=== PATIENT | female | born 1985 | race Caucasian/White ===

== ENCOUNTER 2016-09-23 13:02 | Emergency (ER) | payer SELFPAY ==
[2016-09-23] MEDS ORDERED: Ketorolac 30 MG/ML SDV IVPUSH ONE (13:58)
[2016-09-23] MEDS ORDERED: Sodium Chloride 0.9% 1,000 ML IV ONE (13:58)
[2016-09-23] MEDS ORDERED: Sodium Chloride 0.9% 10 ML Syringe FLUSH PRN (13:58)
--- NOTE | 2016-09-23 15:22 | EDM.PDOC ---
ED HPI GENERAL MEDICAL PROBLEM - General Chief Complaint: Back Pain or Injury Stated Complaint: BACK PAIN Time Seen by Provider: 09/23/16 13:40 Source of Information: Reports: Patient History Limitations: Reports: No Limitations - History of Present Illness INITIAL COMMENTS - FREE TEXT/NARRATIVE: 31-year-old female presents for evaluation and treatment of low back pain. Patient reports that the back pain has been present for the last 2 weeks. Feels that it is worse on her right side versus her left. reports that she fell twice yesterday but is not noticing worsening in her back pain. Patient feels that she is dehydrated. She states that she normally does not eat much. She is alcoholic. She states that she does not drink daily but she did drink yesterday. Did drink 8 shots of vodka yesterday, no alcohol today. Reports pain in her low to mid back that radiates into her legs. She denies any numbness or tingling in her legs but states she has chronic numbness in her fingertips has been last last few months. She also reports that her urine has a foul odor and color this is been present for the last 2 weeks. She reports associated symptoms of nausea and vomiting this morning. No fevers or hematuria. Patient denies any chance of . Duration: Week(s): (2) Location: Reports: Back Lower Back Pain Score (Numeric/FACES): 6 - Related Data Allergies Allergy/AdvReac Type Severity Reaction Status Date / Time propranolol Allergy Swelling Verified 04/26/16 20:52 Sulfa (Sulfonamide Allergy Rash Verified 04/26/16 20:52 Antibiotics) Home Meds: Home Meds Levothyroxine [Synthroid] 175 mcg PO ACBREAKFAST 11/20/15 [History] traZODone 100 mg PO DAILY 04/26/16 [History] Nitrofurantoin [place]/Macrocryst [Macrobid] 100 mg PO BEDTIME #14 cap 09/23/16 [Rx ] Past Medical History Gastrointestinal History: Reports: Chronic Diarrhea Other Gastrointestinal History: c/o yellow liquid stools for past 2-3 months. 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: Neurological History: Reports: Headaches, Chronic Psychiatric History: Reports: Addiction, Anxiety Endocrine/Metabolic History: Reports: Hyperthyroidism Other Endocrine/Metabolic History: had thryoid removed Hematologic History: Reports: Anemia - Infectious Disease History Infectious Disease History: Reports: Chicken Pox - Past Surgical History Endocrine Surgical History: Reports: Thyroidectomy Social & Family History - Family History Family Medical History: Noncontributory - Tobacco Use Smoking Status *Q: Current Every Day Smoker Years of Tobacco use: 10 Packs/Tins Daily: 1 Used Tobacco, but Quit: No Second Hand Smoke Exposure: No - Caffeine Use Caffeine Use: Reports: None - Alcohol Use Days Per Week of Alcohol Use: 7 Number of Drinks Per Day: 10 Total Drinks Per Week: 70 - Recreational Drug Use Recreational Drug Use: No Drug Use in Last 12 Months: Yes Recreational Drug Type: Reports: Ativan Recreational Drug Use Frequency: Daily - Living Situation & Occupation Living situation: Reports: Single Occupation: Unemployed ED ROS GENERAL - Review of Systems Review Of Systems: See Below Constitutional: Denies: Fever GI/Abdominal: Reports: Nausea, Vomiting : Reports: Other (reports foul urine odor and dark urine color). Denies: Dysuria, Hematuria Musculoskeletal: Reports: Back Pain ED EXAM,LOWER BACK PAIN/INJURY - Physical Exam Exam: See Below Exam Limited By: No Limitations General Appearance: Alert, WD/WN, No Apparent Distress Respiratory/Chest: No Respiratory Distress, Lungs Clear, Normal Breath Sounds Cardiovascular: Normal Peripheral Pulses, Regular Rate, Rhythm, No Murmur GI/Abdominal: Normal Bowel Sounds, Soft, Non-Tender Back Exam: Normal Inspection, CVA Tenderness (R). No: Vertebral Tenderness Neurological: Alert, Normal Mood/Affect, Normal Gait Psychiatric: Normal Affect, Normal Mood Skin Exam: Warm, Dry, Normal Color Course - Vital Signs Last Recorded V/S: Last Vital Signs Temp 36.6 C 09/23/16 13:13 Pulse 89 09/23/16 15:55 Resp 16 09/23/16 15:55 BP 124/78 09/23/16 15:55 Pulse Ox 98 09/23/16 15:55 - Orders/Labs/Meds Orders: Active Orders 24 hr Category Date Time Status Peripheral IV Care [RC] . DIRECTED Care 09/23/16 13:58 Active CULTURE URINE [RM] Stat Lab 09/23/16 14:30 Received Peripheral IV Insertion Adult [OM.PC] Routine Oth 09/23/16 13:58 Ordered Labs: Laboratory Tests 09/23/16 09/23/16 09/23/16 Range/Units 14:30 14:30 14:30 WBC 5.45 (3.98-10.04) K/mm3 RBC 4.56 (3.98-5.22) M/mm3 Hgb 13.1 (11.2-15.7) gm/L Hct 39.9 (34.1-44.9) % MCV 87.5 (79.4-94.8) fl MCH 28.7 (25.6-32.2) pg MCHC 32.8 (32.2-35.5) g/dl RDW Std Deviation 47.6 H (36.4-46.3) fL Plt Count 208 (182-369) K/mm3 MPV 9.2 L (9.4-12.3) fl Neutrophils % (Manual) 60 (40-60) % Band Neutrophils % 1 (0-10) % Lymphocytes % (Manual) 32 (20-40) % Atypical Lymphs % 0 % Monocytes % (Manual) 5 (2-10) % Eosinophils % (Manual) 1 (0.7-5.8) % Basophils % (Manual) 1 (0.1-1.2) Platelet Estimate Adequate RBC Morph Comment Normal Sodium 136 (136-145) mEq/L Potassium 4.2 (3.5-5.1) mEq/L Chloride 101 (98-107) mEq/L Carbon Dioxide 26 (21-32) mEq/L Anion Gap 13.2 (5-15) BUN 9 (7-18) mg/dL Creatinine 1.0 (0.55-1.02) mg/dL Est Cr Clr Drug Dosing 80.72 mL/min Estimated GFR (MDRD) > 60 (>60) mL/min BUN/Creatinine Ratio 9.0 L (14-18) Glucose 72 L (74-106) mg/dL Calcium 8.4 L (8.5-10.1) mg/dL Total Bilirubin 0.4 (0.2-1.0) mg/dL AST 24 (15-37) U/L ALT 24 (14-59) U/L Alkaline Phosphatase 113 (46-116) U/L C-Reactive Protein < 0.2 (<1.0) mg/dL Total Protein 8.4 H (6.4-8.2) g/dl Albumin 4.1 (3.4-5.0) g/dl Globulin 4.3 gm/dL Albumin/Globulin Ratio 1.0 (1-2) Urine Color Yellow (Yellow) Urine Appearance Clear (Clear) Urine pH 7.5 (5.0-8.0) Ur Specific [place] 1.020 (1.005-1.030) Urine Protein Trace H (Negative) Urine Glucose (UA) Negative (Negative) Urine Ketones Negative (Negative) Urine Occult Blood Negative (Negative) Urine Nitrite Negative (Negative) Urine Bilirubin Negative (Negative) Urine Urobilinogen 0.2 (0.2-1.0) Ur Leukocyte Esterase Negative (Negative) Urine RBC 0-5 (0-5) /hpf Urine WBC 0-5 (0-5) /hpf Ur Epithelial Cells 5-10 H (0-5) /hpf Urine Bacteria Rare (FEW) /hpf Urine Mucus Few (FEW) /hpf Ethyl Alcohol (0.00) gm% 09/23/16 Range/Units 14:30 WBC (3.98-10.04) K/mm3 RBC (3.98-5.22) M/mm3 Hgb (11.2-15.7) gm/L Hct (34.1-44.9) % MCV (79.4-94.8) fl MCH (25.6-32.2) pg MCHC (32.2-35.5) g/dl RDW Std Deviation (36.4-46.3) fL Plt Count (182-369) K/mm3 MPV (9.4-12.3) fl Neutrophils % (Manual) (40-60) % Band Neutrophils % (0-10) % Lymphocytes % (Manual) (20-40) % Atypical Lymphs % % Monocytes % (Manual) (2-10) % Eosinophils % (Manual) (0.7-5.8) % Basophils % (Manual) (0.1-1.2) Platelet Estimate RBC Morph Comment Sodium (136-145) mEq/L Potassium (3.5-5.1) mEq/L Chloride (98-107) mEq/L Carbon Dioxide (21-32) mEq/L Anion Gap (5-15) BUN (7-18) mg/dL Creatinine (0.55-1.02) mg/dL Est Cr Clr Drug Dosing mL/min Estimated GFR (MDRD) (>60) mL/min BUN/Creatinine Ratio (14-18) Glucose (74-106) mg/dL Calcium (8.5-10.1) mg/dL Total Bilirubin (0.2-1.0) mg/dL AST (15-37) U/L ALT (14-59) U/L Alkaline Phosphatase (46-116) U/L C-Reactive Protein (<1.0) mg/dL Total Protein (6.4-8.2) g/dl Albumin (3.4-5.0) g/dl Globulin gm/dL Albumin/Globulin Ratio (1-2) Urine Color (Yellow) Urine Appearance (Clear) Urine pH (5.0-8.0) Ur Specific [place] (1.005-1.030) Urine Protein (Negative) Urine Glucose (UA) (Negative) Urine Ketones (Negative) Urine Occult Blood (Negative) Urine Nitrite (Negative) Urine Bilirubin (Negative) Urine Urobilinogen (0.2-1.0) Ur Leukocyte Esterase (Negative) Urine RBC (0-5) /hpf Urine WBC (0-5) /hpf Ur Epithelial Cells (0-5) /hpf Urine Bacteria (FEW) /hpf Urine Mucus (FEW) /hpf Ethyl Alcohol 0.05 (0.00) gm% Meds: Medications Discontinued Medications Generic Name Dose Route Start Last Admin Trade Name Freq PRN Reason Stop Dose Admin Sodium Chloride 1,000 mls @ 999 mls/hr 09/23/16 13:58 09/23/16 14:24 Normal Saline IV 09/23/16 14:58 999 mls/hr ONETIME ONE Administration Ketorolac Tromethamine 30 mg 09/23/16 13:58 09/23/16 14:25 Toradol IVPUSH 09/23/16 13:59 30 mg ONETIME ONE Administration Sodium Chloride 10 ml 09/23/16 13:58 09/23/16 14:26 Saline Flush FLUSH 10 ml ASDIRECTED PRN Administration Keep Vein Open - Re-Assessments/Exams Free Text/Narrative Re-Assessment/Exam: 09/23/16 15:30 Labs have returned. White blood cell count 5.45 with 1% bands, hemoglobin 13.1 and platelets are 208 Sodium 136, potassium 4.2 and chloride 101. Anion gap 13.2. glucose is 72 CRP is normal less than 0.2. Alcohol is 0.05. UA has trace protein and rare bacteria seen on microscopy. While the patient's UA is not overly impressive, I was made aware the patient has been drinking alcohol recently. She is symptomatic for urinary tract infection. I will treat her as such. Urine was sent for culture. Discharge instructions as documented. Departure - Departure Time of Disposition: 15:37 Disposition: Home, Self-Care 01 Condition: Fair Clinical Impression: Urinary tract infection - Discharge Information Prescriptions: Nitrofurantoin [place]/Macrocryst [Macrobid] 100 mg PO BEDTIME #14 cap Instructions: Urinary Tract Infection, Adult, [id number] Referrals: Imani Nagel DO [Primary Care Provider] - Forms: ED Department Discharge Additional Instructions: Take the Macrobid one tab twice a day for 7 days as prescribed. Take [id number] Tylenol or Motrin as needed for pain and symptom relief. make sure you are drinking plenty of fluids. Avoid alcohol as you will have a longer healthier life if you avoid alcohol. Continue with your current treatment plan. Follow-up with your primary care provider the end of this week or early next week for a recheck. Please return to the ER if your symptoms change or worsen. - My Orders Last 24 Hours: My Active Orders 09/23/16 13:58 Peripheral IV Care [RC] . DIRECTED Peripheral IV Insertion Adult [OM.PC] Routine 09/23/16 14:30 CULTURE URINE [RM] Stat - Assessment/Plan Last 24 Hours: My Active Orders 09/23/16 13:58 Peripheral IV Care [RC] . DIRECTED Peripheral IV Insertion Adult [OM.PC] Routine 09/23/16 14:30 CULTURE URINE [RM] Stat
[2016-09-23 15:57] VITALS: BP 124/78
== END 2016-09-23 15:57 | disposition home or self-care (01) ==
LOC: JD.ED 13:02
DX: N39.0 Urinary tract infection, site not specified (principal); F41.9 Anxiety disorder, unspecified; E03.9 Hypothyroidism, unspecified; F17.210 Nicotine dependence, cigarettes, uncomplicated; Z88.2 Allergy status to sulfonamides; Z79.899 Other long term (current) drug therapy; Z87.440 Personal history of urinary (tract) infections
CPT/HCPCS: 36415; 80053; 81001; 85025; 86140; 87086; 96361; 96374; 99283; G0480; J1885; J7040; J7050; 99284

== ENCOUNTER 2016-10-09 16:47 | Emergency (ER) | payer SELFPAY ==
[2016-10-09 17:02] VITALS: BP 121/83
--- NOTE | 2016-10-09 19:50 | EDM.PDOC ---
ED HPI GENERAL MEDICAL PROBLEM - General Chief Complaint: Behavioral/Psych Stated Complaint: Medical clearance Time Seen by Provider: 10/09/16 17:15 Source of Information: Reports: Patient, RN Notes Reviewed History Limitations: Reports: No Limitations - History of Present Illness INITIAL COMMENTS - FREE TEXT/NARRATIVE: 31 year old female presents to the ED today for medical clearance for [facility] bed. The patient is an alcoholic and is seeking help for her drinking. She initially spoke to Perez Mendoza who referred her to [facility]. The patient admits to drinking 6 shots of tequila today. She admits to drink approximately two times per week. She denies any withdrawal symptoms. She used to drink daily and has gone through withdrawals. She says for the past 6 months she's been drinking less with no withdrawal symptoms. She says that her is very controlling which is contributing to her need to drink. She denies drug use. She denies suicidal or homicidal ideation. - Related Data Allergies Allergy/AdvReac Type Severity Reaction Status Date / Time propranolol Allergy Swelling Verified 04/26/16 20:52 Sulfa (Sulfonamide Allergy Rash Verified 04/26/16 20:52 Antibiotics) Home Meds: Home Meds Levothyroxine [Synthroid] 175 mcg PO ACBREAKFAST 11/20/15 [History] traZODone 100 mg PO DAILY 04/26/16 [History] Antibuse 500 mg PO DAILY 10/09/16 [History] Past Medical History Gastrointestinal History: Reports: Chronic Diarrhea Other Gastrointestinal History: c/o yellow liquid stools for past 2-3 months. 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: Neurological History: Reports: Headaches, Chronic Psychiatric History: Reports: Addiction, Anxiety Endocrine/Metabolic History: Reports: Hyperthyroidism Other Endocrine/Metabolic History: had thryoid removed Hematologic History: Reports: Anemia - Infectious Disease History Infectious Disease History: Reports: Chicken Pox - Past Surgical History Endocrine Surgical History: Reports: Thyroidectomy Social & Family History - Family History Family Medical History: Noncontributory - Tobacco Use Smoking Status *Q: Current Every Day Smoker Years of Tobacco use: 7 Packs/Tins Daily: 1 Used Tobacco, but Quit: No Second Hand Smoke Exposure: No - Caffeine Use Caffeine Use: Reports: Coffee, Energy Drinks - Alcohol Use Days Per Week of Alcohol Use: 7 Number of Drinks Per Day: 10 Total Drinks Per Week: 70 - Recreational Drug Use Recreational Drug Use: No Drug Use in Last 12 Months: Yes Recreational Drug Type: Reports: Ativan Recreational Drug Use Frequency: Daily - Living Situation & Occupation Living situation: Reports: Single Occupation: Unemployed ED ROS GENERAL - Review of Systems Review Of Systems: See Below Constitutional: Reports: No Symptoms. Denies: Fever, Chills, Diaphoresis Respiratory: Reports: No Symptoms. Denies: Shortness of Breath Cardiovascular: Reports: No Symptoms. Denies: Chest Pain GI/Abdominal: Reports: No Symptoms. Denies: Abdominal Pain, Nausea, Vomiting Neurological: Reports: No Symptoms. Denies: Dizziness, Headache, Tremors ED EXAM, BEHAVIORAL HEALTH - Physical Exam Exam: See Below Exam Limited By: No Limitations General Appearance: Alert, WD/WN, No Apparent Distress Eye Exam: Bilateral Eye: EOMI, PERRL Respiratory/Chest: No Respiratory Distress, Lungs Clear, Normal Breath Sounds Cardiovascular: Regular Rate, Rhythm GI/Abdominal: Normal Bowel Sounds, Soft, Non-Tender Neurological: Alert, Normal Mood/Affect, Normal Cognition, Normal Gait, No Motor /Sensory Deficits, Oriented x 3 Psychiatric: Alert, Normal Affect, Normal Cognition, Normal Mood, Oriented, Tearful Skin Exam: Warm, Dry, Intact COURSE, BEHAVIORAL HEALTH COMP - Course Vital Signs: Last Vital Signs Temp 97.6 F 10/09/16 17:01 Pulse 92 10/09/16 17:01 Resp 20 10/09/16 17:01 BP 121/83 10/09/16 17:01 Pulse Ox 97 10/09/16 17:01 Orders, Labs, Meds: Laboratory Tests 10/09/16 10/09/16 10/09/16 Range/Units 17:53 17:53 18:00 WBC 6.43 (3.98-10.04) K/mm3 RBC 4.39 (3.98-5.22) M/mm3 Hgb 12.7 (11.2-15.7) gm/L Hct 38.3 (34.1-44.9) % MCV 87.2 (79.4-94.8) fl MCH 28.9 (25.6-32.2) pg MCHC 33.2 (32.2-35.5) g/dl RDW Std Deviation 48.3 H (36.4-46.3) fL Plt Count 276 (182-369) K/mm3 MPV 8.9 L (9.4-12.3) fl Neut % (Auto) 54.8 (34.0-71.1) % Lymph % (Auto) 35.0 (19.3-51.7) % [place] % (Auto) 6.8 (4.7-12.5) % Eos % (Auto) 2.6 (0.7-5.8) Baso % (Auto) 0.6 (0.1-1.2) % Neut # (Auto) 3.52 (1.56-6.13) K/mm3 Lymph # (Auto) 2.25 (1.18-3.74) K/mm3 [place] # (Auto) 0.44 H (0.24-0.36) K/mm3 Eos # (Auto) 0.17 (0.04-0.36) K/mm3 Baso # (Auto) 0.04 (0.01-0.08) K/mm3 Sodium (136-145) mEq/L Potassium (3.5-5.1) mEq/L Chloride (98-107) mEq/L Carbon Dioxide (21-32) mEq/L Anion Gap (5-15) BUN (7-18) mg/dL Creatinine (0.55-1.02) mg/dL Est Cr Clr Drug Dosing mL/min Estimated GFR (MDRD) (>60) mL/min BUN/Creatinine Ratio (14-18) Glucose (74-106) mg/dL Calcium (8.5-10.1) mg/dL Total Bilirubin (0.2-1.0) mg/dL AST (15-37) U/L ALT (14-59) U/L Alkaline Phosphatase (46-116) U/L Total Protein (6.4-8.2) g/dl Albumin (3.4-5.0) g/dl Globulin gm/dL Albumin/Globulin Ratio (1-2) TSH 3rd Generation (0.358-3.74) uIU/mL Urine HCG, Qual Negative (NEGATIVE) Urine Opiates Screen Negative (NEGATIVE) Ur Buprenorphine Scrn Negative (NEGATIVE) Ur Oxycodone Screen Negative (NEGATIVE) Urine Methadone Screen Negative (NEGATIVE) Ur Propoxyphene Screen Negative (NEGATIVE) Ur Barbiturates Screen Negative (NEGATIVE) Ur Tricyclics Screen Negative (NEGATIVE) Ur Phencyclidine Scrn Negative (NEGATIVE) Ur Amphetamine Screen Negative (NEGATIVE) U Methamphetamines Scrn Negative (NEGATIVE) U Benzodiazepines Scrn Negative (NEGATIVE) U Cocaine Metab Screen Negative (NEGATIVE) U Marijuana (THC) Screen Negative (NEGATIVE) Ethyl Alcohol (0.00) gm% 10/09/16 Range/Units 18:00 WBC (3.98-10.04) K/mm3 RBC (3.98-5.22) M/mm3 Hgb (11.2-15.7) gm/L Hct (34.1-44.9) % MCV (79.4-94.8) fl MCH (25.6-32.2) pg MCHC (32.2-35.5) g/dl RDW Std Deviation (36.4-46.3) fL Plt Count (182-369) K/mm3 MPV (9.4-12.3) fl Neut % (Auto) (34.0-71.1) % Lymph % (Auto) (19.3-51.7) % [place] % (Auto) (4.7-12.5) % Eos % (Auto) (0.7-5.8) Baso % (Auto) (0.1-1.2) % Neut # (Auto) (1.56-6.13) K/mm3 Lymph # (Auto) (1.18-3.74) K/mm3 [place] # (Auto) (0.24-0.36) K/mm3 Eos # (Auto) (0.04-0.36) K/mm3 Baso # (Auto) (0.01-0.08) K/mm3 Sodium 142 (136-145) mEq/L Potassium 4.2 (3.5-5.1) mEq/L Chloride 107 (98-107) mEq/L Carbon Dioxide 27 (21-32) mEq/L Anion Gap 12.2 (5-15) BUN 10 (7-18) mg/dL Creatinine 1.1 H (0.55-1.02) mg/dL Est Cr Clr Drug Dosing 73.38 mL/min Estimated GFR (MDRD) 59 (>60) mL/min BUN/Creatinine Ratio 9.1 L (14-18) Glucose 105 (74-106) mg/dL Calcium 8.5 (8.5-10.1) mg/dL Total Bilirubin 0.2 (0.2-1.0) mg/dL AST 21 (15-37) U/L ALT 20 (14-59) U/L Alkaline Phosphatase 106 (46-116) U/L Total Protein 8.2 (6.4-8.2) g/dl Albumin 4.0 (3.4-5.0) g/dl Globulin 4.2 gm/dL Albumin/Globulin Ratio 1.0 (1-2) TSH 3rd Generation 0.685 (0.358-3.74) uIU/mL Urine HCG, Qual (NEGATIVE) Urine Opiates Screen (NEGATIVE) Ur Buprenorphine Scrn (NEGATIVE) Ur Oxycodone Screen (NEGATIVE) Urine Methadone Screen (NEGATIVE) Ur Propoxyphene Screen (NEGATIVE) Ur Barbiturates Screen (NEGATIVE) Ur Tricyclics Screen (NEGATIVE) Ur Phencyclidine Scrn (NEGATIVE) Ur Amphetamine Screen (NEGATIVE) U Methamphetamines Scrn (NEGATIVE) U Benzodiazepines Scrn (NEGATIVE) U Cocaine Metab Screen (NEGATIVE) U Marijuana (THC) Screen (NEGATIVE) Ethyl Alcohol 0.24 (0.00) gm% Re-Assessment/Re-Exam: Spoke to Perez Mendoza. She knows the patient well and has no concerns for acute alcohol withdrawal. She feels the patient is motivated to quit drinking. Perez spoke to [facility] earlier today. The patient is medically cleared for [facility]. Spoke to area coordinator and nurse at [facility]. They have accepted care of the patient. They will come get here. Departure - Departure Time of Disposition: 19:50 Disposition: Home, Self-Care 01 Condition: Good Clinical Impression: Alcohol abuse - Discharge Information Instructions: Alcohol Use Disorder Referrals: Imani Nagel DO [Primary Care Provider] - Forms: ED Department Discharge Additional Instructions: Medications as prescribed. Return to ER with any withdrawal symptoms
== END 2016-10-09 20:00 | disposition home or self-care (01) ==
LOC: JD.ED 16:47
DX: F10.10 Alcohol abuse, uncomplicated (principal); F41.9 Anxiety disorder, unspecified; E05.90 Thyrotoxicosis, unspecified without thyrotoxic crisis or storm; Z88.2 Allergy status to sulfonamides; Z88.8 Allergy status to other drugs, medicaments and biological substances; Z79.899 Other long term (current) drug therapy; Z87.440 Personal history of urinary (tract) infections; Z98.890 Other specified postprocedural states; Y90.8 Blood alcohol level of 240 mg/100 ml or more
CPT/HCPCS: 36415; 80053; 80306; 81025; 84443; 85025; 99283; G0480

== ENCOUNTER 2016-10-21 07:36 | Emergency (ER) | payer SELFPAY ==
[2016-10-21 07:46] VITALS: BP 107/85
[2016-10-21] MEDS ORDERED: methylPREDNISolone Sodium Succinate 125 MG/2 ML SDV IM ONE (08:00)
[2016-10-21] MEDS ORDERED: diphenhydrAMINE 50 MG Cap PO ONE (08:01)
[2016-10-21] MEDS ORDERED: Famotidine 20 MG Tab PO ONE (08:01)
--- NOTE | 2016-10-21 08:37 | EDM.PDOC ---
ED HPI GENERAL MEDICAL PROBLEM - General Chief Complaint: Allergic Reaction Stated Complaint: POSS ALLERGIC REACTION/HIVES/SWELLING Time Seen by Provider: 10/21/16 07:56 Source of Information: Reports: Patient History Limitations: Reports: No Limitations - History of Present Illness INITIAL COMMENTS - FREE TEXT/NARRATIVE: The patient presents with hives. She noticed some on her buttocks this weekend. She did eat some crab and [place]. She has only reacted to propranolol like this before. She has no SOB and she has no trouble breathing. She now has hives on her arms and legs. Onset: Gradual Duration: Day(s): Location: Reports: Upper Extremity, Left, Upper Extremity, Right, Lower Extremity, Left, Lower Extremity, Right Quality: Reports: Burning Severity: Moderate Improves with: Reports: None Worsens with: Reports: None Context: Reports: Activity (She was in [place] and she had some crab this weekned) Associated Symptoms: Reports: No Other Symptoms - Related Data Allergies Allergy/AdvReac Type Severity Reaction Status Date / Time propranolol Allergy Swelling Verified 10/21/16 07:46 Sulfa (Sulfonamide Allergy Rash Verified 10/21/16 07:46 Antibiotics) Home Meds: Home Meds Levothyroxine [Synthroid] 175 mcg PO ACBREAKFAST 11/20/15 [History] traZODone 100 mg PO DAILY 04/26/16 [History] Antibuse 500 mg PO DAILY 10/09/16 [History] Prednisone [IJD: predniSONE] 40 mg PO WITHBREAKFAST #10 tab 10/21/16 [Rx] Past Medical History Gastrointestinal History: Reports: Chronic Diarrhea Other Gastrointestinal History: c/o yellow liquid stools for past 2-3 months. 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: Neurological History: Reports: Headaches, Chronic Psychiatric History: Reports: Addiction, Anxiety Endocrine/Metabolic History: Reports: Hyperthyroidism Other Endocrine/Metabolic History: had thryoid removed Hematologic History: Reports: Anemia - Infectious Disease History Infectious Disease History: Reports: Chicken Pox - Past Surgical History Female Surgical History: Reports: Oophorectomy Other Female Surgeries/Procedures: right ovary removal Endocrine Surgical History: Reports: Thyroidectomy Social & Family History - Family History Family Medical History: Noncontributory - Tobacco Use Smoking Status *Q: Current Every Day Smoker Years of Tobacco use: 10 Packs/Tins Daily: 1 Used Tobacco, but Quit: No Second Hand Smoke Exposure: No - Caffeine Use Caffeine Use: Reports: Coffee - Alcohol Use Days Per Week of Alcohol Use: 7 Number of Drinks Per Day: 10 Total Drinks Per Week: 70 - Recreational Drug Use Recreational Drug Use: No Drug Use in Last 12 Months: Yes Recreational Drug Type: Reports: Ativan Recreational Drug Use Frequency: Daily - Living Situation & Occupation Living situation: Reports: Single Occupation: Unemployed ED ROS ALLERGIC REACTION - Review of Systems Review Of Systems: See Below Constitutional: Reports: No Symptoms HEENT: Reports: No Symptoms Respiratory: Reports: No Symptoms Cardiovascular: Reports: No Symptoms Endocrine: Reports: No Symptoms GI/Abdominal: Reports: No Symptoms : Reports: No Symptoms Musculoskeletal: Reports: No Symptoms Skin: Reports: Rash Neurological: Reports: No Symptoms ED EXAM GENERAL NO PERIP PULSE - Physical Exam Exam: See Below Exam Limited By: No Limitations General Appearance: Alert, No Apparent Distress Ears: Normal External Exam Nose: Normal Inspection Head: Atraumatic, Normocephalic Neck: Normal Inspection Respiratory/Chest: No Respiratory Distress, Lungs Clear, Normal Breath Sounds Cardiovascular: Regular Rate, Rhythm, No Edema, No Murmur Skin Exam: Rash (Urticaria to the arms and legs) Course - Vital Signs Last Recorded V/S: Last Vital Signs Temp 97.1 F 10/21/16 07:40 Pulse 85 10/21/16 07:40 Resp 18 10/21/16 07:40 BP 107/85 10/21/16 07:40 Pulse Ox 100 10/21/16 07:40 - Orders/Labs/Meds Meds: Medications Discontinued Medications Generic Name Dose Route Start Last Admin Trade Name Nielsq PRN Reason Stop Dose Admin Diphenhydramine HCl 50 mg 10/21/16 08:01 10/21/16 08:07 Benadryl PO 10/21/16 08:02 50 mg ONETIME ONE Administration Famotidine 20 mg 10/21/16 08:01 10/21/16 08:08 Pepcid PO 10/21/16 08:02 20 mg ONETIME ONE Administration Methylprednisolone Sodium Succinate 125 mg 10/21/16 08:00 10/21/16 08:08 Solu-Medrol IM 10/21/16 08:01 125 mg ONETIME ONE Administration - Re-Assessments/Exams Free Text/Narrative Re-Assessment/Exam: 10/21/16 08:35 I ordered a shot of solu-medrol 125mg IM, benadryl 50mg by mouth and pepcid 20mg by mouth. I will give her a prescription for prednisone and have her take benadryl and pepcid. I will have her avoid shell fish. Departure - Departure Time of Disposition: 08:40 Disposition: Home, Self-Care 01 Condition: Good Clinical Impression: Allergic reaction Qualifiers: Encounter type: initial encounter Qualified Code(s): T78.40XA - Allergy, unspecified, initial encounter - Discharge Information Prescriptions: Prednisone [IJD: predniSONE] 40 mg PO WITHBREAKFAST #10 tab Referrals: Imani Nagel DO [Primary Care Provider] - 1 Week Forms: ED Department Discharge Additional Instructions: Take the prednisone 2 pills daily for 5 days. Take benadryl 50mg every 6 hours as needed for the rash. Take pepcid daily for 5 days. Avoid shell fish. That includes crab, lobster, shrimp and crawfish. Please return if you are worse.
== END 2016-10-21 08:45 | disposition home or self-care (01) ==
LOC: JD.ED 07:36
DX: T78.1XXA Other adverse food reactions, not elsewhere classified, initial encounter (principal); L50.9 Urticaria, unspecified; F41.9 Anxiety disorder, unspecified; F17.210 Nicotine dependence, cigarettes, uncomplicated; Z98.890 Other specified postprocedural states; Z90.710 Acquired absence of both cervix and uterus; Z88.2 Allergy status to sulfonamides; Z88.8 Allergy status to other drugs, medicaments and biological substances; Z86.2 Personal history of diseases of the blood and blood-forming organs and certain disorders involving the immune mechanism; Z79.899 Other long term (current) drug therapy; E05.90 Thyrotoxicosis, unspecified without thyrotoxic crisis or storm
CPT/HCPCS: 96372; 99283; A9270; J2930

== ENCOUNTER 2016-11-19 19:27 | Emergency (ER) | payer SELFPAY ==
[2016-11-19 19:37] VITALS: BP 117/85
--- NOTE | 2016-11-19 20:03 | EDM.PDOCBH ---
ED HPI GENERAL MEDICAL PROBLEM - General Chief Complaint: Behavioral/Psych Stated Complaint: BROUGHT BY [facility] Time Seen by Provider: 11/19/16 19:50 Source of Information: Reports: Patient, Police History Limitations: Reports: Intoxication - History of Present Illness INITIAL COMMENTS - FREE TEXT/NARRATIVE: The patient presents with alcohol intoxication and suicidal ideation. The patient has been under lots of stress lately. Her mother is sick and needs to go in the retirement. She does have a drinking problem and she relapsed tonight and had some tequila. She made some threats that she would hurt herself. [facility] deputy brought her in to be evaluated. The patient admitted to making the threats but she is not serious. She was just trying to have her come console her. She is and she has no marital problems. She has 2 children. She had no suicidal plan. She has never attempted suicide in the past. The [facility] deputy says there is no charges against her and he does not have a hold on her. The patient thinks she may have a UTI. Her urine has an odor to it. Onset: Gradual Duration: Day(s): Severity: Moderate Improves with: Reports: None Worsens with: Reports: None Associated Symptoms: Reports: Other (Bad odor to her urine) - Related Data Allergies Allergy/AdvReac Type Severity Reaction Status Date / Time propranolol Allergy Swelling Verified 11/19/16 19:36 Sulfa (Sulfonamide Allergy Rash Verified 11/19/16 19:36 Antibiotics) Home Meds: Home Meds . [No Known Home Meds] 11/19/16 [History] Past Medical History Gastrointestinal History: Reports: Chronic Diarrhea Other Gastrointestinal History: c/o yellow liquid stools for past 2-3 months. 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: Neurological History: Reports: Headaches, Chronic Psychiatric History: Reports: Addiction, Anxiety, Depression Endocrine/Metabolic History: Reports: Hyperthyroidism Other Endocrine/Metabolic History: had thryoid removed Hematologic History: Reports: Anemia - Infectious Disease History Infectious Disease History: Reports: Chicken Pox - Past Surgical History Female Surgical History: Reports: Oophorectomy Other Female Surgeries/Procedures: right ovary removal Endocrine Surgical History: Reports: Thyroidectomy Social & Family History - Family History Family Medical History: Noncontributory - Tobacco Use Smoking Status *Q: Current Every Day Smoker Years of Tobacco use: 9 Packs/Tins Daily: 1 Used Tobacco, but Quit: No Second Hand Smoke Exposure: No - Caffeine Use Caffeine Use: Reports: Soda - Alcohol Use Days Per Week of Alcohol Use: 7 Number of Drinks Per Day: 4 Total Drinks Per Week: 28 - Recreational Drug Use Recreational Drug Use: No Drug Use in Last 12 Months: Yes Recreational Drug Type: Reports: Ativan Recreational Drug Use Frequency: Daily - Living Situation & Occupation Living situation: Reports: Single Occupation: Unemployed ED ROS GENERAL - Review of Systems Review Of Systems: See Below Constitutional: Reports: No Symptoms HEENT: Reports: No Symptoms Respiratory: Reports: No Symptoms Cardiovascular: Reports: No Symptoms Endocrine: Reports: No Symptoms GI/Abdominal: Reports: No Symptoms : Reports: Other (Bad odor to her urine) Musculoskeletal: Reports: No Symptoms ED EXAM, BEHAVIORAL HEALTH - Physical Exam Exam: See Below Exam Limited By: No Limitations General Appearance: Alert, No Apparent Distress Ears: Normal External Exam Nose: Normal Inspection Head: Atraumatic, Normocephalic Neck: Normal Inspection Respiratory/Chest: No Respiratory Distress, Lungs Clear, Normal Breath Sounds Cardiovascular: Regular Rate, Rhythm, No Edema, No Murmur GI/Abdominal: Soft, Non-Tender, No Organomegaly, No Mass Back Exam: Normal Inspection Extremities: Normal Inspection COURSE, BEHAVIORAL HEALTH COMP - Course Vital Signs: Last Vital Signs Temp 98.5 F 11/19/16 19:33 Pulse 125 H 11/19/16 19:33 Resp 18 11/19/16 19:33 BP 117/85 11/19/16 19:33 Pulse Ox 97 11/19/16 19:33 Orders, Labs, Meds: Active Orders 24 hr Category Date Time Status Cardiac Monitoring [RC] . DIRECTED Care 11/19/16 19:56 Ordered CBC WITH AUTO DIFF [HEME] Stat Lab 11/19/16 19:56 Ordered COMPREHENSIVE METABOLIC PN,CMP [CHEM] Stat Lab 11/19/16 19:56 Ordered DRUG SCREEN, URINE [URCHEM] Stat Lab 11/19/16 19:56 Uncollected ETHANOL BLOOD MEDICAL [CHEM] Stat Lab 11/19/16 19:56 Ordered HCG QUALITATIVE,SERUM [CHEM] Stat Lab 11/19/16 19:56 Ordered UA W/MICROSCOPIC [URIN] Stat Lab 11/19/16 19:56 Uncollected Re-Assessment/Re-Exam: I ordered lab work with an ETOH, UA and urine drug screen. The [employer] deputy did not have any charges against her so I said he could go. The patient said she needed to use the bathroom and she walked out. We could not physically restrain her and she would not stop. Departure - Departure Time of Disposition: 20:05 Disposition: Eloped 07 Condition: Good Clinical Impression: Alcohol intoxication Qualifiers: Complication of substance-induced condition: uncomplicated Qualified Code(s): F10.120 - Alcohol abuse with intoxication, uncomplicated Depression Qualifiers: Depression Type: other depression Qualified Code(s): F32.8 - Other depressive episodes - Discharge Information Forms: ED Department Discharge - My Orders Last 24 Hours: My Active Orders 11/19/16 19:56 Cardiac Monitoring [RC] . DIRECTED CBC WITH AUTO DIFF [HEME] Stat COMPREHENSIVE METABOLIC PN,CMP [CHEM] Stat DRUG SCREEN, URINE [URCHEM] Stat ETHANOL BLOOD MEDICAL [CHEM] Stat HCG QUALITATIVE,SERUM [CHEM] Stat UA W/MICROSCOPIC [URIN] Stat - Assessment/Plan Last 24 Hours: My Active Orders 11/19/16 19:56 Cardiac Monitoring [RC] . DIRECTED CBC WITH AUTO DIFF [HEME] Stat COMPREHENSIVE METABOLIC PN,CMP [CHEM] Stat DRUG SCREEN, URINE [URCHEM] Stat ETHANOL BLOOD MEDICAL [CHEM] Stat HCG QUALITATIVE,SERUM [CHEM] Stat UA W/MICROSCOPIC [URIN] Stat
== END 2016-11-19 19:55 | disposition left against medical advice (07) ==
LOC: JD.ED 19:27
DX: F32.89 Other specified depressive episodes (principal); F10.120 Alcohol abuse with intoxication, uncomplicated; F17.210 Nicotine dependence, cigarettes, uncomplicated; Z86.2 Personal history of diseases of the blood and blood-forming organs and certain disorders involving the immune mechanism; Z87.440 Personal history of urinary (tract) infections; Z98.890 Other specified postprocedural states; Z90.721 Acquired absence of ovaries, unilateral; Z88.2 Allergy status to sulfonamides; Z88.8 Allergy status to other drugs, medicaments and biological substances
CPT/HCPCS: 99283; 99285

== ENCOUNTER 2017-01-29 19:15 | Emergency (ER) | payer SELFPAY ==
[2017-01-29 19:35] VITALS: BP 107/73
[2017-01-29] MEDS ORDERED: Sodium Chloride 0.9% 1,000 ML IV ONE (20:00)
[2017-01-29] MEDS ORDERED: Ondansetron 4 MG/2 ML SDV IVPUSH ONE (20:00)
[2017-01-29 20:59] LABS: ACETAMINOPHEN 0 ug/mL (10-30)
--- NOTE | 2017-01-29 21:35 | EDM.PDOCBH ---
ED HPI GENERAL MEDICAL PROBLEM - General Chief Complaint: Drug or Alcohol Abuse Stated Complaint: [facility] Time Seen by Provider: 01/29/17 19:27 Source of Information: Reports: Patient, Family (), RN Notes Reviewed History Limitations: Reports: No Limitations - History of Present Illness INITIAL COMMENTS - FREE TEXT/NARRATIVE: The patient's states that the patient is a "sneak alcoholic" who has been to inpatient rehabilitation approximately 4 times, and who has been on Antabuse for the past 2 months, but states that she ran out approximately 2016. The patient states that he smelled alcohol on his 's breath this past 01/26/2017. Her Antabuse was restarted on 01/27/2017, although the patient's notes that he smelled alcohol on her later that day as well as yesterday, 01/28/2017, despite her appearing to take the Antabuse. Indeed , the patient's reports that he often smells alcohol on the patient's breath even though she appears to be taking the Antabuse. The patient's states that he feels like the patient has significant depression, and that when she becomes depressed, she drinks alcohol, and when she drinks alcohol, this further worsens her depression. She is not currently receiving treatment for depression. He reports that social work faculty member have been involved because of the patient's neglect of their children. He reports that the patient's drinking has put a serious strain on their marriage. The patient's states that he gave her an Antabuse pelvis morning, although he did not witness her taking it. When he came home from work around 17 :30 this evening, the patient's smelled of alcohol, but she told him that she had not been drinking. He told her that if she had been drinking, then she should not have a problem taking another pill of Antabuse. He gave her one, watched her put it in her mouth, then, about 10 minutes later, the patient fainted. The patient's called 911. He told them that he was not sure if the patient was breathing, therefore they instructed him to perform CPR. He states that he performed approximately 2 pumps of chest compressions before the patient gas for air and regained consciousness. The patient states that she drank 2 shots of whiskey today, then took the Antabuse. She states that the last time she had a drink was about 2 months ago. She states that she was off Antabuse for about 4 days, then restarted it yesterday, although at another point, stated that she stopped it 2 days ago, drank yesterday, then restarted it today - she has difficulty giving a cionsistent story. She states that she has been in to inpatient alcohol treatment 3 times, each for 25 days, most recently in May 2016. She states that she has gone to outpatient rehabilitation, most recently at [facility], but that she quit it about one month ago, because she did not feel like she needed it. The patient's PCP is Dr. Imani Nagel. 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: Psychiatric History: Reports: Addiction (alcohol), Anxiety, Depression Endocrine/Metabolic History: Reports: Hypothyroidism (following thyroidectomy), Other (See Below) (Graves disease) - Infectious Disease History Infectious Disease History: Reports: Chicken Pox - Past Surgical History Female Surgical History: Reports: Oophorectomy (right) Endocrine Surgical History: Reports: Thyroidectomy Social & Family History - Family History Family Medical History: Noncontributory - Tobacco Use Smoking Status *Q: Current Every Day Smoker Years of Tobacco use: 15 Packs/Tins Daily: 1 - Caffeine Use Caffeine Use: Reports: None - Alcohol Use Alcohol Use History: Yes Days Per Week of Alcohol Use: 7 Number of Drinks Per Day: 4 Total Drinks Per Week: 28 Alcohol Use Frequency: Binges - Recreational Drug Use Recreational Drug Use: Yes Drug Use in Last 12 Months: Yes Recreational Drug Type: Reports: Ativan, Marijuana/Hashish - Living Situation & Occupation Living situation: Reports: , with Spouse, with Family (2 kids) 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) ED ROS GENERAL - Review of Systems Review Of Systems: See Below Constitutional: Reports: No Symptoms HEENT: Reports: No Symptoms Respiratory: Reports: No Symptoms Cardiovascular: Reports: No Symptoms Endocrine: Reports: No Symptoms GI/Abdominal: Reports: Diarrhea (chronic) : Reports: No Symptoms Musculoskeletal: Reports: No Symptoms Skin: Reports: No Symptoms Neurological: Reports: Headache (frequent) Psychiatric: Reports: No Symptoms Hematologic/Lymphatic: Reports: No Symptoms Immunologic: Reports: No Symptoms ED EXAM, BEHAVIORAL HEALTH - Physical Exam Exam: See Below Exam Limited By: Intoxication General Appearance: WD/WN, No Apparent Distress, Lethargic, Other (Smell of alcohol) Eye Exam: Bilateral Eye: Normal Inspection Ears: Normal External Exam, Hearing Grossly Normal Nose: Normal Inspection, No Blood Throat/Mouth: Normal Inspection, Normal Lips, Normal Voice, No Airway Compromise Head: Atraumatic, Normocephalic Neck: Normal Inspection, Full Range of Motion Respiratory/Chest: No Respiratory Distress, Lungs Clear, Normal Breath Sounds, No Accessory Muscle Use Cardiovascular: Normal Peripheral Pulses, Regular Rate, Rhythm, No Gallop, No JVD, No Murmur, No Rub GI/Abdominal: Normal Bowel Sounds, Soft, Non-Tender, No Organomegaly, No Distention, No Abnormal Bruit, No Mass (Female) Exam: Deferred Rectal (Female) Exam: Deferred Back Exam: Normal Inspection, Full Range of Motion, NT Extremities: Normal Inspection, Normal Range of Motion, No Pedal Edema, Normal Capillary Refill Neurological: No Motor/Sensory Deficits, Slow Response to Commands Psychiatric: Other (Unable to assess) Skin Exam: Warm, Dry, Intact, Normal color, No rash EKG INTERPRETATION EKG Date: 01/29/17 Time: 20:15 Rhythm: NSR Rate (Beats/Min): 89 [place]: Normal P-Wave: Present QRS: Normal ST-T: Normal QT: Normal Comparison: No Change (04/26/2016) COURSE, BEHAVIORAL HEALTH COMP - Course Vital Signs: Last Vital Signs Temp 36.8 C 01/29/17 19:24 Pulse 87 01/29/17 19:24 Resp 16 01/29/17 19:24 BP 107/73 01/29/17 19:24 Pulse Ox 100 01/29/17 19:24 Orthostatic Blood Pressure [ 93/64 Standing] Orthostatic Blood Pressure [ 98/78 Sitting] Orthostatic Blood Pressure [ 97/62 Supine] Orders, Labs, Meds: Active Orders 24 hr Category Date Time Status EKG Documentation Completion [RC] STAT Care 01/29/17 20:00 Active Orthostatic Vital Signs [RC] STAT Care 01/29/17 20:01 Active Laboratory Tests 01/29/17 01/29/17 01/29/17 Range/Units 20:26 20:26 20:26 WBC 6.61 (3.98-10.04) K/mm3 RBC 4.91 (3.98-5.22) M/mm3 Hgb 14.4 (11.2-15.7) gm/L Hct 42.0 (34.1-44.9) % MCV 85.5 (79.4-94.8) fl MCH 29.3 (25.6-32.2) pg MCHC 34.3 (32.2-35.5) g/dl RDW Std Deviation 42.5 (36.4-46.3) fL Plt Count 272 (182-369) K/mm3 MPV 9.2 L (9.4-12.3) fl Neutrophils % (Manual) 51 (40-60) % Band Neutrophils % 0 (0-10) % Lymphocytes % (Manual) 47 H (20-40) % Atypical Lymphs % 0 % Monocytes % (Manual) 1 L (2-10) % Eosinophils % (Manual) 0 L (0.7-5.8) % Basophils % (Manual) 1 (0.1-1.2) Platelet Estimate Adequate Plt Morphology Comment Normal RBC Morph Comment Normal Sodium 150 H (136-145) mEq/L Potassium 3.7 (3.5-5.1) mEq/L Chloride 112 H (98-107) mEq/L Carbon Dioxide 20 L (21-32) mEq/L Anion Gap 21.7 H (5-15) BUN 9 (7-18) mg/dL Creatinine 0.9 (0.55-1.02) mg/dL Est Cr Clr Drug Dosing 85.86 mL/min Estimated GFR (MDRD) > 60 (>60) mL/min BUN/Creatinine Ratio 10.0 L (14-18) Glucose 75 (74-106) mg/dL Calcium 7.8 L (8.5-10.1) mg/dL Total Bilirubin 0.3 (0.2-1.0) mg/dL AST 21 (15-37) U/L ALT 12 L (14-59) U/L Alkaline Phosphatase 149 H (46-116) U/L Total Protein 7.6 (6.4-8.2) g/dl Albumin 3.6 (3.4-5.0) g/dl Globulin 4.0 gm/dL Albumin/Globulin Ratio 0.9 L (1-2) Urine HCG, Qual (NEGATIVE) Salicylates 2.5 L (2.8-20) mg/dL Urine Opiates Screen (NEGATIVE) Ur Buprenorphine Scrn (NEGATIVE) Ur Oxycodone Screen (NEGATIVE) Urine Methadone Screen (NEGATIVE) Ur Propoxyphene Screen (NEGATIVE) Acetaminophen 0 L (10-30) ug/mL Ur Barbiturates Screen (NEGATIVE) Ur Tricyclics Screen (NEGATIVE) Ur Phencyclidine Scrn (NEGATIVE) Ur Amphetamine Screen (NEGATIVE) U Methamphetamines Scrn (NEGATIVE) U Benzodiazepines Scrn (NEGATIVE) U Cocaine Metab Screen (NEGATIVE) U Marijuana (THC) Screen (NEGATIVE) Ethyl Alcohol 0.34 (0.00) gm% 01/29/17 01/29/17 Range/Units 21:48 21:48 WBC (3.98-10.04) K/mm3 RBC (3.98-5.22) M/mm3 Hgb (11.2-15.7) gm/L Hct (34.1-44.9) % MCV (79.4-94.8) fl MCH (25.6-32.2) pg MCHC (32.2-35.5) g/dl RDW Std Deviation (36.4-46.3) fL Plt Count (182-369) K/mm3 MPV (9.4-12.3) fl Neutrophils % (Manual) (40-60) % Band Neutrophils % (0-10) % Lymphocytes % (Manual) (20-40) % Atypical Lymphs % % Monocytes % (Manual) (2-10) % Eosinophils % (Manual) (0.7-5.8) % Basophils % (Manual) (0.1-1.2) Platelet Estimate Plt Morphology Comment RBC Morph Comment Sodium (136-145) mEq/L Potassium (3.5-5.1) mEq/L Chloride (98-107) mEq/L Carbon Dioxide (21-32) mEq/L Anion Gap (5-15) BUN (7-18) mg/dL Creatinine (0.55-1.02) mg/dL Est Cr Clr Drug Dosing mL/min Estimated GFR (MDRD) (>60) mL/min BUN/Creatinine Ratio (14-18) Glucose (74-106) mg/dL Calcium (8.5-10.1) mg/dL Total Bilirubin (0.2-1.0) mg/dL AST (15-37) U/L ALT (14-59) U/L Alkaline Phosphatase (46-116) U/L Total Protein (6.4-8.2) g/dl Albumin (3.4-5.0) g/dl Globulin gm/dL Albumin/Globulin Ratio (1-2) Urine HCG, Qual Negative (NEGATIVE) Salicylates (2.8-20) mg/dL Urine Opiates Screen Negative (NEGATIVE) Ur Buprenorphine Scrn Negative (NEGATIVE) Ur Oxycodone Screen Negative (NEGATIVE) Urine Methadone Screen Negative (NEGATIVE) Ur Propoxyphene Screen Negative (NEGATIVE) Acetaminophen (10-30) ug/mL Ur Barbiturates Screen Negative (NEGATIVE) Ur Tricyclics Screen Negative (NEGATIVE) Ur Phencyclidine Scrn Negative (NEGATIVE) Ur Amphetamine Screen Negative (NEGATIVE) U Methamphetamines Scrn Negative (NEGATIVE) U Benzodiazepines Scrn Negative (NEGATIVE) U Cocaine Metab Screen Negative (NEGATIVE) U Marijuana (THC) Screen Negative (NEGATIVE) Ethyl Alcohol (0.00) gm% Medications Discontinued Medications Generic Name Dose Route Start Last Admin Trade Name Freq PRN Reason Stop Dose Admin Sodium Chloride 1,000 mls @ 999 mls/hr 01/29/17 20:00 01/29/17 20:10 Normal Saline IV 01/29/17 21:00 999 mls/hr ONETIME ONE Administration Ondansetron HCl 4 mg 01/29/17 20:00 01/29/17 20:11 Zofran IVPUSH 01/29/17 20:01 4 mg ONETIME ONE Administration Medical Clearance: 01/29/17 20:49 The patient is not orthostatic. 01/29/17 23:12 Test results discussed at length with patient and her . Today's workup finds that the patient is dehydrated with a sodium of 150, and a significantly elevated alcohol level of 0.34. The remainder of her workup is unremarkable. The patient's states that he often smells alcohol on the patient, despite her claiming to take Antabuse. I strongly suspect that she is tucking the Antabuse pill between her cheek and gum, then spitting it out later, indeed , it is behavior like this that is the reason why Antabuse has been shown to not be effective to prevent relapse. For tonight's purposes, I am recommending that the patient stay well hydrated, and abstain from further alcohol. I am then recommending that both the patient and her go to [facility] tomorrow to not only seek professional alcohol treatment, but also for the patient to be psychiatrically evaluated by Dr. Gant. It is my belief that if the patient's underlying depression is not addressed, then efforts at alcohol treatment will be in vain. Departure - Departure Time of Disposition: 23:15 Disposition: Home, Self-Care 01 Condition: Fair Clinical Impression: Alcoholism, Dehydration Alcohol intoxication Qualifiers: Complication of substance-induced condition: uncomplicated Qualified Code(s): F10.120 - Alcohol abuse with intoxication, uncomplicated Depression Qualifiers: Depression Type: other depression Qualified Code(s): F32.8 - Other depressive episodes - Discharge Information Instructions: Alcohol Use Disorder Referrals: PCP,None [Primary Care Provider] - Kanika Gant MD [Ordering Only Provider] - Additional Instructions: You were seen in the emergency room after fainting at home. Workup in the ER included blood work, an alcohol level, a urine test, a urine drug screen, an ECG, and positional blood pressure checks. Your workup found that you are dehydrated, and your alcohol level was found to be substantially elevated at 0.34. For reference, the upper legal limit for driving is 0.08. We recommend that you stay well hydrated, and abstain from alcohol. We STRONGLY recommend that you seek professional help for both your alcoholism and your depression. Without treatment of your depression, efforts to treat your alcoholism will not likely be successful. We recommend that you go to [facility]: [address] [place] [phone] If any other problems, please do not hesitate to return to the ER. - My Orders Last 24 Hours: My Active Orders 01/29/17 20:00 EKG Documentation Completion [RC] STAT 01/29/17 20:01 Orthostatic Vital Signs [RC] STAT - Assessment/Plan Last 24 Hours: My Active Orders 01/29/17 20:00 EKG Documentation Completion [RC] STAT 01/29/17 20:01 Orthostatic Vital Signs [RC] STAT
== END 2017-01-29 23:30 | disposition home or self-care (01) ==
LOC: JD.ED 19:15
DX: E86.0 Dehydration (principal); F32.89 Other specified depressive episodes; F10.120 Alcohol abuse with intoxication, uncomplicated; F17.210 Nicotine dependence, cigarettes, uncomplicated; Z88.2 Allergy status to sulfonamides; Z79.899 Other long term (current) drug therapy
CPT/HCPCS: 36415; 80053; 80306; 81025; 85025; 93005; 99285; G0480; J2405; J7040; 93010; 99284

== ENCOUNTER 2017-07-08 08:19 | Emergency (ER) | payer SELFPAY ==
--- NOTE | 2017-07-08 08:54 | EDM.PDOC ---
<Za Gilliam - Last Filed: 07/08/17 09:36> ED HPI GENERAL MEDICAL PROBLEM - General Chief Complaint: Gastrointestinal Problem Stated Complaint: VOMITING Time Seen by Provider: 07/08/17 08:54 Source of Information: Reports: Patient History Limitations: Reports: No Limitations - History of Present Illness INITIAL COMMENTS - FREE TEXT/NARRATIVE: Patient is a 31 YO female who presents today for vomiting that started last night around 10 pm. She states she ate sauerkraut pork sausage yesterday at noon. She got a headache around 5 pm in the base of her head and neck. She reports some continued neck soreness but no headache. She reports vomiting all night. She had tried to drink fluids but can't keep anything down. She denies vomiting blood. She reports feeling hot and cold but no recorded fever. Her last BM was 2 days ago. She denies any diarrhea. She reports leg muscle weakness that started this morning when she woke up but no pain. She reports epigastric pain that is squeezing, burning and constant in nature. She denies GERD. She currently smoke 1/2 pack per day. Denies alcohol or drug use. She is 3 month with no complications, no vaginal spotting. She is seeing Dr. Bonilla for her care. - Related Data Allergies Allergy/AdvReac Type Severity Reaction Status Date / Time propranolol Allergy Swelling Verified 07/08/17 08:36 Sulfa (Sulfonamide Allergy Rash Verified 07/08/17 08:36 Antibiotics) Home Meds: Home Meds Levothyroxine 175 mcg PO DAILY 01/29/17 [History] Ondansetron [Zofran] 4 mg BUCCAL Q6H PRN #8 tab 07/08/17 [Rx] Vit W-Ca,Fe,FA(<1 mg) [ Vitamins] 1 tab PO DAILY 07/08/17 [ History] ED ROS GENERAL - Review of Systems Review Of Systems: See Below Constitutional: Reports: Chills, Weakness, Fatigue, Decreased Appetite HEENT: Reports: No Symptoms Respiratory: Reports: No Symptoms Cardiovascular: Reports: No Symptoms GI/Abdominal: Reports: Abdominal Pain, Constipation, Decreased Appetite, Nausea , Vomiting. Denies: Diarrhea : Reports: No Symptoms Musculoskeletal: Reports: Muscle Stiffness (neck) Skin: Reports: No Symptoms Neurological: Reports: No Symptoms Psychiatric: Reports: No Symptoms ED EXAM, GI/ABD - Physical Exam Exam: See Below Exam Limited By: No Limitations General Appearance: Alert, WD/WN, No Apparent Distress Eyes: Bilateral: EOMI Head: Atraumatic Neck: Normal Inspection, Supple, Non-Tender Respiratory/Chest: No Respiratory Distress, Lungs Clear, Normal Breath Sounds Cardiovascular: Normal Peripheral Pulses, Regular Rate, Rhythm, No Edema, No Murmur GI/Abdominal Exam: Normal Bowel Sounds, Soft, No Distention, Tender (epigastric) . No: Rebound Back Exam: CVA Tenderness (L). No: CVA Tenderness (R) Neurological: Alert, Oriented, CN II-XII Intact, Normal Cognition, No Motor/ Sensory Deficits Psychiatric: Normal Affect, Normal Mood Skin Exam: Warm, Dry, Intact, Normal Color, No Rash Course - Vital Signs Last Recorded V/S: Last Vital Signs Temp 36.9 C 07/08/17 08:37 Pulse 89 07/08/17 08:37 Resp BP 111/75 07/08/17 08:37 Pulse Ox 99 07/08/17 08:37 Orthostatic Blood Pressure [ 89/68 Standing] Orthostatic Blood Pressure [ 98/64 Sitting] Orthostatic Blood Pressure [ 97/64 Supine] - Orders/Labs/Meds Orders: Active Orders 24 hr Category Date Time Status Orthostatic Vital Signs [RC] ASDIRECTED Care 07/08/17 08:54 Active URINALYSIS W/MICROSCOPIC [UA W/MICROSCOPIC] [URIN] Stat Lab 07/08/17 10:40 Ordered Dextrose 5%-0.9% NaCl [Dextrose 5%-Normal Saline] 1,000 Med 07/08/17 09:00 Active ml IV ASDIRECTED Dextrose 5%-0.9% NaCl [Dextrose 5%-Normal Saline] 1,000 Med 07/08/17 11:40 Active ml IV ASDIRECTED Medication Orders Dextrose/Sodium Chloride (Dextrose 5%-Normal Saline) 1,000 mls @ 999 mls/hr IV ASDIRECTED MAIKOL Last Admin: 07/08/17 09:17 Dose: 999 mls/hr Dextrose/Sodium Chloride (Dextrose 5%-Normal Saline) 1,000 mls @ 999 mls/hr IV ASDIRECTED MAIKOL Last Admin: 07/08/17 10:55 Dose: 999 mls/hr Labs: Laboratory Tests 07/08/17 07/08/1707/08/18 Range/Units 09:15 09:15 10:40 WBC 7.54 (3.98-10.04) K/mm3 RBC 4.03 (3.98-5.22) M/mm3 Hgb 12.2 (11.2-15.7) gm/L Hct 35.4 (34.1-44.9) % MCV 87.8 (79.4-94.8) fl MCH 30.3 (25.6-32.2) pg MCHC 34.5 (32.2-35.5) g/dl RDW Std Deviation 42.8 (36.4-46.3) fL Plt Count 197 (182-369) K/mm3 MPV 9.5 (9.4-12.3) fl Neutrophils % (Manual) 80 H (40-60) % Band Neutrophils % 13 H (0-10) % Lymphocytes % (Manual) 5 L (20-40) % Atypical Lymphs % 0 % Monocytes % (Manual) 2 (2-10) % Eosinophils % (Manual) 0 L (0.7-5.8) % Basophils % (Manual) 0 L (0.1-1.2) Platelet Estimate Adequate RBC Morph Comment Normal Sodium 136 (136-145) mEq/L Potassium 4.0 (3.5-5.1) mEq/L Chloride 103 (98-107) mEq/L Carbon Dioxide 23 (21-32) mEq/L Anion Gap 14.0 (5-15) BUN 11 (7-18) mg/dL Creatinine 0.8 (0.55-1.02) mg/dL Est Cr Clr Drug Dosing 100.90 mL/min Estimated GFR (MDRD) > 60 (>60) mL/min BUN/Creatinine Ratio 13.8 L (14-18) Glucose 91 (74-106) mg/dL Calcium 8.6 (8.5-10.1) mg/dL Total Bilirubin 0.4 (0.2-1.0) mg/dL AST 20 (15-37) U/L ALT 11 L (14-59) U/L Alkaline Phosphatase 80 (46-116) U/L C-Reactive Protein 2.2 H* (<1.0) mg/dL Total Protein 7.2 (6.4-8.2) g/dl Albumin 3.3 L (3.4-5.0) g/dl Globulin 3.9 gm/dL Albumin/Globulin Ratio 0.9 L (1-2) Lipase 185 (73-393) U/L Urine Color Yellow (Yellow) Urine Appearance Clear (Clear) Urine pH 6.5 (5.0-8.0) Ur Specific [place] 1.015 (1.005-1.030) Urine Protein Negative (Negative) Urine Glucose (UA) 2+ H (Negative) Urine Ketones Negative (Negative) Urine Occult Blood Negative (Negative) Urine Nitrite Negative (Negative) Urine Bilirubin Negative (Negative) Urine Urobilinogen 0.2 (0.2-1.0) Ur Leukocyte Esterase Negative (Negative) Urine RBC 0-5 (0-5) /hpf Urine WBC 0-5 (0-5) /hpf Ur Epithelial Cells 0-5 (0-5) /hpf Urine Bacteria Few (FEW) /hpf Urine Mucus Not seen (FEW) /hpf Meds: Medications Generic Name Dose Route Start Last Admin Trade Name Freq PRN Reason Stop Dose Admin Dextrose/Sodium Chloride 1,000 mls @ 999 mls/hr 07/08/17 09:00 07/08/17 09:17 Dextrose 5%-Normal Saline IV 999 mls/hr ASDIRECTED MAIKOL Administration Dextrose/Sodium Chloride 1,000 mls @ 999 mls/hr 07/08/17 11:40 07/08/17 10:55 Dextrose 5%-Normal Saline IV 999 mls/hr ASDIRECTED MAIKOL Administration Discontinued Medications Generic Name Dose Route Start Last Admin Trade Name Freq PRN Reason Stop Dose Admin Hydromorphone HCl 0.5 mg 07/08/17 08:56 07/08/17 09:21 Dilaudid IVPUSH 07/08/17 08:57 0.5 mg ONETIME ONE Administration Hydromorphone HCl 0.5 mg 07/08/17 11:33 07/08/17 11:50 Dilaudid IVPUSH 07/08/17 11:34 0.5 mg ONETIME ONE Administration Dextrose/Lactated Ringer's 1,000 mls @ 999 mls/hr 07/08/17 11:00 Dextrose 5%-Lactated Ringers IV ASDIRECTED MAIKOL Metoclopramide HCl 7.5 mg 07/08/17 08:56 07/08/17 09:17 Reglan IVPUSH 07/08/17 08:57 7.5 mg ONETIME ONE Administration Ondansetron HCl 4 mg 07/08/17 11:33 07/08/17 11:52 Zofran IVPUSH 07/08/17 11:34 4 mg ONETIME ONE Administration Departure - Departure Disposition: Home, Self-Care 01 Clinical Impression: Bacterial foodborne intoxication - Discharge Information Prescriptions: Ondansetron [Zofran] 4 mg BUCCAL Q6H PRN #8 tab PRN Reason: nausea or vomiting Referrals: PCP,None [Primary Care Provider] - Forms: ED Department Discharge, ED Return to Work/School Form Additional Instructions: Evaluation the emergency room today in regards to suspect foodborne illness possibly from eating poorly cooked pork. Her and herself see if of contracted a toxin from the food. developed significant diarrhea he developed nausea vomiting and may or may not develop diarrhea over the next 12- 24 hours. You're treated with 2 L of IV fluid to ensure rehydration and improve your blood pressure. Suggest supportive 12 week gestation. Baby seems to be doing fine with a heart rate of 152. Treatment at home is Zofran 4 mg under the tongue every 6 hours as needed for nausea or vomiting relief. Next tablet to be taken around 3:00 today if needed. Suggest Gatorade or Powerade 5 or 6 ounces sipped per hour to maintain hydration. Once hungry try soda crackers and then toast. They also advanced to broth soup or turkey rice/chicken noodle soup later today. Avoid all dairy products and no apple or grape juice until you know for sure you're not going to develop diarrhea. If diarrhea does develop and is profuse by that I mean greater than 8-10 times in a 24-hour period of time he should return to the ED. - My Orders Last 24 Hours: My Active Orders 07/08/17 08:54 Orthostatic Vital Signs [RC] ASDIRECTED 07/08/17 09:00 Dextrose 5%-0.9% NaCl [Dextrose 5%-Normal Saline] 1,000 ml IV ASDIRECTED 07/08/17 10:40 URINALYSIS W/MICROSCOPIC [UA W/MICROSCOPIC] [URIN] Stat 07/08/17 11:40 Dextrose 5%-0.9% NaCl [Dextrose 5%-Normal Saline] 1,000 ml IV ASDIRECTED - Assessment/Plan Last 24 Hours: My Active Orders 07/08/17 08:54 Orthostatic Vital Signs [RC] ASDIRECTED 07/08/17 09:00 Dextrose 5%-0.9% NaCl [Dextrose 5%-Normal Saline] 1,000 ml IV ASDIRECTED 07/08/17 10:40 URINALYSIS W/MICROSCOPIC [UA W/MICROSCOPIC] [URIN] Stat 07/08/17 11:40 Dextrose 5%-0.9% NaCl [Dextrose 5%-Normal Saline] 1,000 ml IV ASDIRECTED <Chava Mario - Last Filed: 07/08/17 12:08> ED HPI GENERAL MEDICAL PROBLEM - General Source of Information: Reports: Patient History Limitations: Reports: No Limitations Abdominal Pain Score (Numeric/FACES): 7 Past Medical History Gastrointestinal History: Reports: Chronic Diarrhea Other Gastrointestinal History: c/o yellow liquid stools for past 2-3 months. 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: Neurological History: Reports: Headaches, Chronic Psychiatric History: Reports: Addiction, Anxiety, Depression Endocrine/Metabolic History: Reports: Hypothyroidism Other Endocrine/Metabolic History: had thryoid removed Hematologic History: Reports: Anemia - Infectious Disease History Infectious Disease History: Reports: Chicken Pox - Past Surgical History Female Surgical History: Reports: Oophorectomy Endocrine Surgical History: Reports: Thyroidectomy Social & Family History - Family History Family Medical History: Noncontributory - Tobacco Use Smoking Status *Q: Current Every Day Smoker Years of Tobacco use: 10 Packs/Tins Daily: 0.5 Used Tobacco, but Quit: No Second Hand Smoke Exposure: No - Caffeine Use Caffeine Use: Reports: None - Alcohol Use Days Per Week of Alcohol Use: 7 Number of Drinks Per Day: 4 Total Drinks Per Week: 28 - Recreational Drug Use Recreational Drug Use: No Drug Use in Last 12 Months: Yes Recreational Drug Type: Reports: Ativan, Marijuana/Hashish Recreational Drug Use Frequency: Daily - Living Situation & Occupation Living situation: Reports: , with Spouse, with Family (2 kids) 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) Course - Orders/Labs/Meds Orders: Active Orders 24 hr Category Date Time Status Orthostatic Vital Signs [RC] ASDIRECTED Care 07/08/17 08:54 Active URINALYSIS W/MICROSCOPIC [UA W/MICROSCOPIC] [URIN] Stat Lab 07/08/17 10:40 Ordered Dextrose 5%-0.9% NaCl [Dextrose 5%-Normal Saline] 1,000 Med 07/08/17 09:00 Active ml IV ASDIRECTED Dextrose 5%-0.9% NaCl [Dextrose 5%-Normal Saline] 1,000 Med 07/08/17 11:40 Active ml IV ASDIRECTED Medication Orders Dextrose/Sodium Chloride (Dextrose 5%-Normal Saline) 1,000 mls @ 999 mls/hr IV ASDIRECTED MAIKOL Last Admin: 07/08/17 09:17 Dose: 999 mls/hr Dextrose/Sodium Chloride (Dextrose 5%-Normal Saline) 1,000 mls @ 999 mls/hr IV ASDIRECTED MAIKOL Last Admin: 07/08/17 10:55 Dose: 999 mls/hr Labs: Laboratory Tests 07/08/17 07/08/17 07/08/17 Range/Units 09:15 09:15 10:40 WBC 7.54 (3.98-10.04) K/mm3 RBC 4.03 (3.98-5.22) M/mm3 Hgb 12.2 (11.2-15.7) gm/L Hct 35.4 (34.1-44.9) % MCV 87.8 (79.4-94.8) fl MCH 30.3 (25.6-32.2) pg MCHC 34.5 (32.2-35.5) g/dl RDW Std Deviation 42.8 (36.4-46.3) fL Plt Count 197 (182-369) K/mm3 MPV 9.5 (9.4-12.3) fl Neutrophils % (Manual) 80 H (40-60) % Band Neutrophils % 13 H (0-10) % Lymphocytes % (Manual) 5 L (20-40) % Atypical Lymphs % 0 % Monocytes % (Manual) 2 (2-10) % Eosinophils % (Manual) 0 L (0.7-5.8) % Basophils % (Manual) 0 L (0.1-1.2) Platelet Estimate Adequate RBC Morph Comment Normal Sodium 136 (136-145) mEq/L Potassium 4.0 (3.5-5.1) mEq/L Chloride 103 (98-107) mEq/L Carbon Dioxide 23 (21-32) mEq/L Anion Gap 14.0 (5-15) BUN 11 (7-18) mg/dL Creatinine 0.8 (0.55-1.02) mg/dL Est Cr Clr Drug Dosing 100.90 mL/min Estimated GFR (MDRD) > 60 (>60) mL/min BUN/Creatinine Ratio 13.8 L (14-18) Glucose 91 (74-106) mg/dL Calcium 8.6 (8.5-10.1) mg/dL Total Bilirubin 0.4 (0.2-1.0) mg/dL AST 20 (15-37) U/L ALT 11 L (14-59) U/L Alkaline Phosphatase 80 (46-116) U/L C-Reactive Protein 2.2 H* (<1.0) mg/dL Total Protein 7.2 (6.4-8.2) g/dl Albumin 3.3 L (3.4-5.0) g/dl Globulin 3.9 gm/dL Albumin/Globulin Ratio 0.9 L (1-2) Lipase 185 (73-393) U/L Urine Color Yellow (Yellow) Urine Appearance Clear (Clear) Urine pH 6.5 (5.0-8.0) Ur Specific [place] 1.015 (1.005-1.030) Urine Protein Negative (Negative) Urine Glucose (UA) 2+ H (Negative) Urine Ketones Negative (Negative) Urine Occult Blood Negative (Negative) Urine Nitrite Negative (Negative) Urine Bilirubin Negative (Negative) Urine Urobilinogen 0.2 (0.2-1.0) Ur Leukocyte Esterase Negative (Negative) Urine RBC 0-5 (0-5) /hpf Urine WBC 0-5 (0-5) /hpf Ur Epithelial Cells 0-5 (0-5) /hpf Urine Bacteria Few (FEW) /hpf Urine Mucus Not seen (FEW) /hpf Meds: Medications Generic Name Dose Route Start Last Admin Trade Name Freq PRN Reason Stop Dose Admin Dextrose/Sodium Chloride 1,000 mls @ 999 mls/hr 07/08/17 09:00 07/08/17 09:17 Dextrose 5%-Normal Saline IV 999 mls/hr ASDIRECTED MAIKOL Administration Dextrose/Sodium Chloride 1,000 mls @ 999 mls/hr 07/08/17 11:40 07/08/17 10:55 Dextrose 5%-Normal Saline IV 999 mls/hr ASDIRECTED MAIKOL Administration Discontinued Medications Generic Name Dose Route Start Last Admin Trade Name Ely PRClare Reason Stop Dose Admin Hydromorphone HCl 0.5 mg 07/08/17 08:56 07/08/17 09:21 Dilaudid IVPUSH 07/08/17 08:57 0.5 mg ONETIME ONE Administration Hydromorphone HCl 0.5 mg 07/08/17 11:33 07/08/17 11:50 Dilaudid IVPUSH 07/08/17 11:34 0.5 mg ONETIME ONE Administration Dextrose/Lactated Ringer's 1,000 mls @ 999 mls/hr 07/08/17 11:00 Dextrose 5%-Lactated Ringers IV ASDIRECTED MAIKOL Metoclopramide HCl 7.5 mg 07/08/17 08:56 07/08/17 09:17 Reglan IVPUSH 07/08/17 08:57 7.5 mg ONETIME ONE Administration Ondansetron HCl 4 mg 07/08/17 11:33 07/08/17 11:52 Zofran IVPUSH 07/08/17 11:34 4 mg ONETIME ONE Administration - Radiology Interpretation Free Text/Narrative:: 31-year-old female presents to the ED with acute onset of nausea and vomiting. She started to feel unwell about 5:00 yesterday afternoon and by 11:00 10:00 she was vomiting. She's had several bilious emesis overnight. She's had no diarrhea but has diffuse abdominal cramping pain. She is currently 12 weeks gestation. There's been no bleeding or spotting per vagina. Doppler ultrasound reveals heart rate at 1 52/m. I'll sounds are quite active in all 4 quadrants. She does have tenderness in both costovertebral angles. Urinalysis will therefore be done with routine labs. Question is whether she has a food borne illness as both her and her ate sausage he has diarrhea she has only been vomiting so far. Plan IV D5 normal saline at 999 mils per hour. Given Reglan 7.5 mg IV for nausea relief and Dilaudid 0.5 mg IV for pain relief in her abdomen. Urinalysis routine labs including a lipase to be done. She may be having costovertebral angle tenderness due to metabolic acidosis. Will await her labs. She is minimally orthostatic. The has been uncomplicated thus far with no nausea or vomiting. - Re-Assessments/Exams Free Text/Narrative Re-Assessment/Exam: 07/08/17 10:44 White count is normal at 7.54. However there is a marked left shift with 80% neutrophils and 13% band cells suggesting a bacterial infection. Hemoglobin is 12.2 with hematocrit of 35.4. Plan account is 197,00 Sodium is 136 with a potassium of 4.0. Toward 103 with a bicarbonate 23. And a gap is normal at 14.0. BUNs 11 with a creatinine of 0.8. Glucose is 91. Calcium is 8.6. Total bilirubin is 0.4 AST is 28 ELT is 11. Alkaline phosphatase normal at 80. CRP is elevated at 2.2. Lipase normal at 185. Emesis is pending. 07/08/17 11:32 is here with her now and he indicates that diarrhea was quite bad overnight but seems to be easing up and therefore appears that this may be toxin borne illness. She was still feeling much rather nauseated and abdominal cramps are coming back. I will repeat Dilaudid 0.5 mg and give her Zofran 4 mg IV. Plan will be to discharge her home on Zofran 4 mg sublingually every 4 hours when necessary for nausea relief after she completes her second liter of IV fluids. She develops severe diarrhea she will return to the ED. Departure - Departure Time of Disposition: 12:04 Condition: Fair - My Orders Last 24 Hours: My Active Orders 07/08/17 08:54 Orthostatic Vital Signs [RC] ASDIRECTED 07/08/17 09:00 Dextrose 5%-0.9% NaCl [Dextrose 5%-Normal Saline] 1,000 ml IV ASDIRECTED 07/08/17 10:40 URINALYSIS W/MICROSCOPIC [UA W/MICROSCOPIC] [URIN] Stat 07/08/17 11:40 Dextrose 5%-0.9% NaCl [Dextrose 5%-Normal Saline] 1,000 ml IV ASDIRECTED - Assessment/Plan Last 24 Hours: My Active Orders 07/08/17 08:54 Orthostatic Vital Signs [RC] ASDIRECTED 07/08/17 09:00 Dextrose 5%-0.9% NaCl [Dextrose 5%-Normal Saline] 1,000 ml IV ASDIRECTED 07/08/17 10:40 URINALYSIS W/MICROSCOPIC [UA W/MICROSCOPIC] [URIN] Stat 07/08/17 11:40 Dextrose 5%-0.9% NaCl [Dextrose 5%-Normal Saline] 1,000 ml IV ASDIRECTED
[2017-07-08] MEDS ORDERED: Metoclopramide 10 MG/2 ML SDV IVPUSH ONE (08:56)
[2017-07-08] MEDS ORDERED: HYDROmorphone 0.5 MG/0.5 ML SYRINGE IVPUSH ONE ×2 (08:56→11:33)
[2017-07-08] MEDS ORDERED: Dextrose 5%-0.9% NaCl 1,000 ML IV SCH ×2 (09:00→11:40)
[2017-07-08] MEDS ORDERED: Dextrose 5%-Lactated Ringers 1,000 ML IV SCH (11:00)
[2017-07-08] MEDS ORDERED: Ondansetron 4 MG/2 ML SDV IVPUSH ONE (11:33)
[2017-07-08 13:43] VITALS: BP 96/58
== END 2017-07-08 12:34 | disposition home or self-care (01) ==
LOC: JD.ED 08:19
DX: O98.811 Other maternal infectious and parasitic diseases complicating pregnancy, first trimester (principal); A05.9 Bacterial foodborne intoxication, unspecified; Z79.899 Other long term (current) drug therapy; Z88.8 Allergy status to other drugs, medicaments and biological substances; Z88.2 Allergy status to sulfonamides
CPT/HCPCS: 36415; 80053; 81001; 83690; 85025; 86140; 96361; 96374; 96375; 96376; 99284; J1170; J2405; J2765; J7042

== ENCOUNTER 2017-12-21 17:58 | Inpatient (IN) | payer SELFPAY ==
[2017-12-21] MEDS ORDERED: Sodium Chloride 0.9% 10 ML Syringe FLUSH PRN (18:20)
[2017-12-21] MEDS ORDERED: Lidocaine 1% 50 ML MDV INJECT ONE (18:20)
[2017-12-21] MEDS ORDERED: Nalbuphine 20 MG/ML 1 ML Syringe IVPUSH PRN (18:20)
[2017-12-21] MEDS ORDERED: Oxytocin/Lactated Ringers 10 UNIT/1,000 ML BAG IV SCH ×2 (18:30)
[2017-12-21] MEDS ORDERED: Ondansetron 4 MG/2 ML SDV IVPUSH PRN (19:22)
[2017-12-21] MEDS ORDERED: ePHEDrine 50 MG/ML SDV IVPUSH PRN (19:22)
[2017-12-21] MEDS ORDERED: fentaNYL 100 MCG/2 ML SDV EPIDUR PRN (19:22)
--- NOTE | 2017-12-21 19:27 | PCM.PREANE ---
Preanesthetic Assessment - Anesthesia/Transfusion/Family Hx Anesthesia History: Prior Anesthesia Without Reaction Family History of Anesthesia Reaction: No Transfusion History: No Prior Transfusion(s) Intubation History: Unknown - Review of Systems General: No Symptoms Pulmonary: No Symptoms (smoke: 1/2 pack per day times 10 years.) Cardiovascular: No Symptoms, Lightheadedness (with IV start.) Gastrointestinal: No Symptoms (GERD) Neurological: No Symptoms, Dizziness Other: Reports: None, Thyroid Problems (hypothyroid) - Physical Assessment NPO Status Date: 12/21/17 NPO Status Time: 13:00 Pulse: 80 O2 Sat by Pulse Oximetry: 99 Respiratory Rate: 20 Blood Pressure: 106/65 Temperature: 36.9 C Height: 1.7 m Weight: 78.925 kg ASA Class: 2 Mental Status: Alert & Oriented x3 Airway Class: Mallampati = 2 Dentition: Reports: Normal Dentition, Caries Thyro-Mental Finger Breadths: 3 Mouth Opening Finger Breadths: 3 ROM/Head Extension: Full Lungs: Clear to Auscultation, Normal Respiratory Effort Cardiovascular: Regular Rate, Regular Rhythm, No Murmurs - Lab Values: Laboratory Last Values WBC 16.53 K/mm3 (3.98-10.04) H 12/21/17 18:51 RBC 3.60 M/mm3 (3.98-5.22) L 12/21/17 18:51 Hgb 10.8 gm/L (11.2-15.7) L 12/21/17 18:51 Hct 32.3 % (34.1-44.9) L 12/21/17 18:51 MCV 89.7 fl (79.4-94.8) 12/21/17 18:51 MCH 30.0 pg (25.6-32.2) 12/21/17 18:51 MCHC 33.4 g/dl (32.2-35.5) 12/21/17 18:51 RDW Std Deviation 40.3 fL (36.4-46.3) 12/21/17 18:51 Plt Count 234 K/mm3 (182-369) 12/21/17 18:51 MPV 9.9 fl (9.4-12.3) 12/21/17 18:51 Neut % (Auto) 73.9 % (34.0-71.1) H 12/21/17 18:51 Lymph % (Auto) 18.0 % (19.3-51.7) L 12/21/17 18:51 [place]phill % (Auto) 6.2 % (4.7-12.5) 12/21/17 18:51 Eos % (Auto) 1.3 (0.7-5.8) 12/21/17 18:51 Baso % (Auto) 0.1 % (0.1-1.2) 12/21/17 18:51 Neut # (Auto) 12.21 K/mm3 (1.56-6.13) H 12/21/17 18:51 Lymph # (Auto) 2.98 K/mm3 (1.18-3.74) 12/21/17 18:51 [place]phill # (Auto) 1.02 K/mm3 (0.24-0.36) H 12/21/17 18:51 Eos # (Auto) 0.21 K/mm3 (0.04-0.36) 12/21/17 18:51 Baso # (Auto) 0.02 K/mm3 (0.01-0.08) 12/21/17 18:51 Above labs reviewed and noted and within acceptable ranges to proceed with epidural. - Imaging/EKG Impressions: (2017) SR rate= 89 probable LAE, no ischemia noted - Allergies Allergies/Adverse Reactions: Allergies Allergy/AdvReac Type Severity Reaction Status Date / Time propranolol Allergy Swelling Verified 07/08/17 08:36 Sulfa (Sulfonamide Allergy Rash Verified 07/08/17 08:36 Antibiotics) - Anesthesia Plan Pre-Op Medication Ordered: None - Acknowledgements Anesthesia Type Planned: Epidural Pt an Appropriate Candidate for the Planned Anesthesia: Yes Alternatives and Risks of Anesthesia Discussed w Pt/Guardian: Yes Pt/Guardian Understands and Agrees with Anesthesia Plan: Yes PreAnesthesia Questionnaire Gastrointestinal History: Reports: Chronic Diarrhea Other Gastrointestinal History: c/o yellow liquid stools for past 2-3 months. 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: Neurological History: Reports: Headaches, Chronic Psychiatric History: Reports: Addiction, Anxiety, Depression Endocrine/Metabolic History: Reports: Hypothyroidism Other Endocrine/Metabolic History: had thryoid removed Hematologic History: Reports: Anemia - Infectious Disease History Infectious Disease History: Reports: Chicken Pox - Past Surgical History Female Surgical History: Reports: Oophorectomy Endocrine Surgical History: Reports: Thyroidectomy - HOME MEDS Home Medications: Home Meds Levothyroxine 175 mcg PO DAILY 01/29/17 [History] Ondansetron [Zofran] 4 mg BUCCAL Q6H PRN #8 tab 07/08/17 [Rx] Vit W-Ca,Fe,FA(<1 mg) [ Vitamins] 1 tab PO DAILY 07/08/17 [ History] - CURRENT (IN HOUSE) MEDS Current Meds: Current Medications Ephedrine Sulfate (Ephedrine Sulfate) 5 mg IVPUSH ASDIRECTED PRN PRN Reason: Hypotension Fentanyl (Sublimaze) 100 mcg EPIDUR Q3H PRN PRN Reason: Pain Fentanyl/Bupivacaine HCl (Fentanyl/Bupivacaine/Ns 2 Mcg-0.125% 100 Ml) 100 ml EPIDUR ASDIRECTED MAIKOL Lactated Ringer's (Ringers, Lactated) 1,000 mls @ 100 mls/hr IV ASDIRECTED MAIKOL Oxytocin/Lactated Ringer's (Pitocin In Lr 10 Units/1,000 Ml) 10 unit in 1,000 mls @ 12 mls/hr IV TITRATE MAIKOL; Protocol Oxytocin/Lactated Ringer's (Pitocin In Lr 10 Units/1,000 Ml) 10 unit in 1,000 mls @ 500 mls/hr IV .CONTINUOUS MAIKOL Phenylephrine HCl 1 mg/ Sodium (Chloride) 10.1 mls @ 1 mls/sec IV TITRATE MAIKOL; Protocol Nalbuphine HCl (Nubain) 10 mg IVPUSH Q2H PRN PRN Reason: pain Ondansetron HCl (Zofran) 4 mg IVPUSH ONETIME PRN PRN Reason: Nausea/Vomiting Sodium Chloride (Saline Flush) 10 ml FLUSH ASDIRECTED PRN PRN Reason: Keep Vein Open Discontinued Medications Lidocaine HCl (Xylocaine 1%) 0 ml INJECT ONETIME ONE Stop: 12/21/17 18:21
[2017-12-21] MEDS ORDERED: Bupivacaine/fentaNYL/NS 100 ML Bag EPIDUR SCH (19:30)
[2017-12-21] MEDS ORDERED: Phenylephrine 1 MG in Sodium Chloride 0.9% 10 ML IV SCH (19:30)
[2017-12-21] MEDS: Lactated Ringers 1,000 ML IV SCH ×2 (19:49→19:51)
--- NOTE | 2017-12-21 19:54 | PCM.LDHP ---
L&D History of Present Illness - General Date of Service: 12/21/17 Admit Problem/Dx: Patient Status Order with Admit Dx/Problem 12/21/17 18:30 Admission Status [Patient Status] [ADT] Routine Admission Diagnosis/Problem Admission Diagnosis/Problem 12/21/17 19:41 32-year-old 3 para 1999 white female with an BERNA of 01/11/2018 at 37-0/ 7 weeks gestational age in active labor with advanced cervical dilation. Source of Information: Patient History Limitations: Reports: No Limitations - History of Present Illness Introduction:: Deborah is a 32-year-old 3 para 1999 white female who is admitted on the evening of 12/21/2017 in active labor. Her cervix is changed from 3+ centimeters dilated to or centimeters. She is sylvia every 2-3 minutes. She is uncomfortable. Ovaries are still intact. There is been active. heart tones are within normal wounds. course 3 para 2001 BERNA 01/11/2018 as dated by a certain last menstrual start an 04/06/2017 and supported by 4 ultrasounds done 05/21/2017201712/01/2017 and 12/14/2017. Previous obstetric history includes menarche at age well cycles every 28 days. Positive hCG on 05/19/2017. No control time conception. Pregnancies included the followin. Female infant born [birth year]/2017 at 40 weeks gestational age?8 hours labor-6 lbs. 7 oz.?[facility]?child's name is Linda Male infant born 09/14/1997 1140 weeks gestational age8 hours labor6 lbs. 5 oz. [facility] started on 06/18/2017 at 10-3/7 weeks gestational age. Patient is being seen on a regular basis. Weight is increased from 151-176 pounds. Her vital signs been stable and her fundal height growth has been somewhat ahead of schedule since approximately 29 weeks. She appeared to have hydramnios on 2017 her LARRY was 31.16 cm. Fundal height on evaluation today in clinic was 43 cm. Patient is very uncomfortable with this increased fluid. She is reporting good activity. Her laboratory tests and are as follows: Blood is B+. Antibody screen is negative. Hemoglobin is 12.7. Platelets 269,000. Rubella titer shows immunity. RPR is nonreactive. Culture of the urine at first visit was negative. Hep to his being HIV assays both negative. TSH was normal at 3.96. Second trimester labs showed a hemoglobin of 11.5 g/dL and platelets 265,000. Her 1 hour GTT was 87. Group B strep screen was negative. Allergies: Sulfur which causes itching and rash Medications: 1. Levothyroxine sodium 175 per day 2. vitamins daily Past medical history: 1. Hypothyroidism on replacement 2. Spontaneous vaginal delivery 2 3. History of abnormal Pap smear status post LEEP. Surgical history: 1. LEEP for cervical dysplasia. Family history: Relatively unremarkable. No anesthesia, bleeding, blood clotting or noted in the family. Social history patient is . She lives in [place]. is Mikie. She does not use any significant most alcohol, drugs or tobacco. Review of systems: In general patient is surgeon's. She is uncomfortable with the amniotic fluid but this has improved somewhat over the last week. Skin: Negative Cardiovascular: Pain or exercise intolerance Respiratory: No shortness of breath or infectious symptoms Breasts: No abnormalities. Patient has had some changes in breasts. She plans to bottlefeed. GI: Negative : Changes associated with increased fundal height as described above Neurological: Negative Musculoskeletal: Negative Call exam on evaluation in clinic earlier today patient noted having blood pressure 112/72 weight was 176. Heart rate is 128. Her height is 5 feet 7 and pregravid weight is 151. BMI of 21.9. General patient is well-developed well-nourished, pleasant female stated age in acute stress. Para skin is warm dry without lesions. HEENT, neck and back within normal limits Lungs are clear with good breath sounds in all lung garcia. Cardiovascular exam shows regular rate and rhythm without murmurs. Breasts exam deferred having that done first visit found to be negative. Abdomen is protuberant with fundal height 43 cm. Baby in vertex. Cervix in clinic earlier today was 3+ centimeters, 90% effaced, -3, very soft, mid position Extremities and neurological exam are grossly within normal limits. - Related Data Allergies/Adverse Reactions: Allergies Allergy/AdvReac Type Severity Reaction Status Date / Time propranolol Allergy Swelling Verified 07/08/17 08:36 Sulfa (Sulfonamide Allergy Rash Verified 07/08/17 08:36 Antibiotics) Home Medications: Home Meds Levothyroxine 175 mcg PO DAILY 01/29/17 [History] Ondansetron [Zofran] 4 mg BUCCAL Q6H PRN #8 tab 07/08/17 [Rx] Vit W-Ca,Fe,FA(<1 mg) [ Vitamins] 1 tab PO DAILY 07/08/17 [ History] Past Medical History Gastrointestinal History: Reports: Chronic Diarrhea Other Gastrointestinal History: c/o yellow liquid stools for past 2-3 months. 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: Neurological History: Reports: Headaches, Chronic Psychiatric History: Reports: Addiction, Anxiety, Depression Endocrine/Metabolic History: Reports: Hypothyroidism Other Endocrine/Metabolic History: had thryoid removed Hematologic History: Reports: Anemia - Infectious Disease History Infectious Disease History: Reports: Chicken Pox - Past Surgical History Female Surgical History: Reports: Oophorectomy Endocrine Surgical History: Reports: Thyroidectomy Social & Family History - Family History Family Medical History: Noncontributory - Caffeine Use Caffeine Use: Reports: None - Living Situation & Occupation Living situation: Reports: , with Spouse, with Family (2 kids) 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) H&P Review of Systems - Review of Systems: Review Of Systems: See Below L&D Exam - Exam Exam: See Below - Vital Signs Vital Signs: Last Vital Signs Temp 36.9 C 12/21/17 18:20 Pulse 80 12/21/17 19:38 Resp 20 12/21/17 19:38 BP 106/65 12/21/17 19:38 Pulse Ox 99 12/21/17 19:38 Weight: 78.925 kg - Patient Data Lab Results Last 24 hrs: Laboratory Results - last 24 hr 12/21/17 Range/Units 18:51 WBC 16.53 H (3.98-10.04) K/mm3 RBC 3.60 L (3.98-5.22) M/mm3 Hgb 10.8 L (11.2-15.7) gm/L Hct 32.3 L (34.1-44.9) % MCV 89.7 (79.4-94.8) fl MCH 30.0 (25.6-32.2) pg MCHC 33.4 (32.2-35.5) g/dl RDW Std Deviation 40.3 (36.4-46.3) fL Plt Count 234 (182-369) K/mm3 MPV 9.9 (9.4-12.3) fl Neut % (Auto) 73.9 H (34.0-71.1) % Lymph % (Auto) 18.0 L (19.3-51.7) % [place] % (Auto) 6.2 (4.7-12.5) % Eos % (Auto) 1.3 (0.7-5.8) Baso % (Auto) 0.1 (0.1-1.2) % Neut # (Auto) 12.21 H (1.56-6.13) K/mm3 Lymph # (Auto) 2.98 (1.18-3.74) K/mm3 [place] # (Auto) 1.02 H (0.24-0.36) K/mm3 Eos # (Auto) 0.21 (0.04-0.36) K/mm3 Baso # (Auto) 0.02 (0.01-0.08) K/mm3 Result Diagrams: 12/21/17 18:51 Problem List Initiated/Reviewed/Updated: Yes Orders Last 24hrs: Active Orders 24 hr Category Date Time Status Admission Status [Patient Status] [ADT] Routine ADT 12/21/17 18:30 Active Activity as Tolerated [RC] PFP Care 12/21/17 18:20 Active Communication Order [RC] ASDIRECTED Care 12/21/17 18:20 Active Heart Tones [RC] ASDIRECTED Care 12/21/17 18:21 Active Non Stress Test [RC] PER UNIT ROUTINE Care 12/21/17 18:20 Active Notify Provider [RC] ASDIRECTED Care 12/21/17 19:22 Active Notify Provider [RC] PFP Care 12/21/17 18:20 Active Notify Provider [RC] PRN Care 12/21/17 18:20 Active Oxygen Therapy [RC] ASDIRECTED Care 12/21/17 19:22 Active Peripheral IV Care [RC] . DIRECTED Care 12/21/17 18:21 Active Pulse Oximetry [RC] ASDIRECTED Care 12/21/17 19:22 Active Pump Management, Intrathecal [RC] ASDIRECTED Care 12/21/17 18:26 Active Urinary Catheter Assessment [RC] ASDIRECTED Care 12/21/17 18:20 Active Vital Signs [RC] PER UNIT ROUTINE Care 12/21/17 18:20 Active Regular Diet [DIET] Diet 12/21/17 Dinner Active RAPID PLASMA REAGIN,RPR [CHEM] Routine Lab 12/21/17 18:51 Received Bupivacaine/fentaNYL/NS [fentaNYL/Bupivacaine/NS 2 MCG- Med 12/21/17 19:30 Active 0.125% 100 ML] 100 ml EPIDUR ASDIRECTED Lactated Ringers [Ringers, Lactated] 1,000 ml Med 12/21/17 18:30 Active IV ASDIRECTED Nalbuphine [Nubain] Med 12/21/17 18:20 Active 10 mg IVPUSH Q2H PRN Ondansetron [Zofran] Med 12/21/17 19:22 Active 4 mg IVPUSH ONETIME PRN Oxytocin/Lactated Ringers [Pitocin in LR 10 Units/1,000 Med 12/21/17 18:30 Active ML] 10 unit in 1,000 ml IV .CONTINUOUS Oxytocin/Lactated Ringers [Pitocin in LR 10 Units/1,000 Med 12/21/17 18:30 Active ML] 10 unit in 1,000 ml IV TITRATE Phenylephrine [Tr-Synephrine] 1 mg Med 12/21/17 19:30 Active Sodium Chloride 0.9% [Normal Saline] 10 ml IV TITRATE Sodium Chloride 0.9% [Saline Flush] Med 12/21/17 18:20 Active 10 ml FLUSH ASDIRECTED PRN ePHEDrine [ePHEDrine Sulfate] Med 12/21/17 19:22 Active 5 mg IVPUSH ASDIRECTED PRN fentaNYL [Sublimaze] Med 12/21/17 19:22 Active 100 mcg EPIDUR Q3H PRN Electronic Heart Tones Ext w TOCO [WOMSER] Oth 12/21/17 18:20 Ordered Routine Electronic Heart Tones Internal [WOMSER] Per Unit Oth 12/21/17 18:20 Ordered Routine Peripheral IV Insertion Adult [OM.PC] Routine Oth 12/21/17 18:20 Ordered Resuscitation Status Routine Resus Stat 12/21/17 18:20 Ordered Medication Orders Ephedrine Sulfate (Ephedrine Sulfate) 5 mg IVPUSH ASDIRECTED PRN PRN Reason: Hypotension Fentanyl (Sublimaze) 100 mcg EPIDUR Q3H PRN PRN Reason: Pain Fentanyl/Bupivacaine HCl (Fentanyl/Bupivacaine/Ns 2 Mcg-0.125% 100 Ml) 100 ml EPIDUR ASDIRECTED MAIKOL Lactated Ringer's (Ringers, Lactated) 1,000 mls @ 100 mls/hr IV ASDIRECTED MAIKOL Oxytocin/Lactated Ringer's (Pitocin In Lr 10 Units/1,000 Ml) 10 unit in 1,000 mls @ 12 mls/hr IV TITRATE MAIKOL; Protocol Oxytocin/Lactated Ringer's (Pitocin In Lr 10 Units/1,000 Ml) 10 unit in 1,000 mls @ 500 mls/hr IV .CONTINUOUS MAIKOL Phenylephrine HCl 1 mg/ Sodium (Chloride) 10.1 mls @ 1 mls/sec IV TITRATE MAIKOL; Protocol Nalbuphine HCl (Nubain) 10 mg IVPUSH Q2H PRN PRN Reason: pain Ondansetron HCl (Zofran) 4 mg IVPUSH ONETIME PRN PRN Reason: Nausea/Vomiting Sodium Chloride (Saline Flush) 10 ml FLUSH ASDIRECTED PRN PRN Reason: Keep Vein Open Assessment/Plan Comment:: 1. 37 0/7 week intrauterine , active labor, advanced cervical dilation 2. Hypothyroidism, on replacement, clinically euthyroid 3. Rubella immune 4. patient plans to bottlefeed 5. Patient plans on epidural for pain control labor and delivery 6. B strep screen negative 7. Hydramnios-etiology on known Plan: 1. Anticipate normal spontaneous vaginal delivery 2. Epidural for control in labor and delivery 3. CBC upon admission 4. Routine labor care. 5. Inform pediatrics about hydramnios.
--- NOTE | 2017-12-21 21:26 | PCM.SN ---
- Free Text/Narrative Note: Deborah is a 32-year-old 3 now para 3003 white female who was admitted on the evening of 12/21/2017 in active labor with advanced cervical dilation. Patient progressed very quickly to 7 cm. She received epidural for analgesia. At 7-8 cm membranes were ruptured resulting in very large amount of clear amniotic fluid. Patient has a history of hydramnios over the course last 3-4 weeks. She has gestational age of 37-0/7 weeks. Patient delivered a viable, crawford, 3490 g (7 lbs. 11 ounce) male with Apgars of 8 and 9 at 2102 hrs. on 12/21/2017. He was placed on mom's abdomen. Nose and mouth were bulb suctioned. The cord was clamped 2 and cut by the baby's father. IV Pitocin was administered to facilitate increase uterine tone and decrease likelihood of bleeding. Cord blood was obtained. The umbilical cord had 3 vessels. The placenta then delivered in a Lopez presentation, appeared intact and complete and was discarded per patient desire. Perineum was intact and no suturing was required. Estimated blood loss was 100 mL. Patient plans to bottlefeed. Condition: Good
[2017-12-21] MEDS ORDERED: Docusate Sodium 100 MG Cap PO PRN (21:43)
[2017-12-21] MEDS ORDERED: Benzocaine/Menthol 20%-0.5% Spray 56 GM Canister TOP PRN (21:43)
[2017-12-21] MEDS ORDERED: Witch Hazel Medicated Pads 100/Jar TOP PRN (21:43)
[2017-12-21] MEDS ORDERED: Acetaminophen 325 MG Tab PO PRN (21:43)
[2017-12-21] MEDS ORDERED: Bupivacaine 0.25% 10 ML SDV ONE (22:00)
[2017-12-22] MEDS: Ibuprofen 600 MG Tab PO PRN ×4 (03:12→19:35)
--- NOTE | 2017-12-22 08:07 | PCM48HPAN ---
Post Anesthesia Note - EVALUATION WITHIN 48HRS OF ANESTHETIC Vital Signs in Normal Range: Yes Patient Participated in Evaluation: Yes Respiratory Function Stable: Yes Airway Patent: Yes Cardiovascular Function Stable: Yes Hydration Status Stable: Yes Pain Control Satisfactory: Yes Nausea and Vomiting Control Satisfactory: Yes Mental Status Recovered: Yes - COMMENTS/OBSERVATIONS Free Text/Narrative:: Doing well. Patient denies any anesthetic complications
--- NOTE | 2017-12-22 12:42 | PCM.SN ---
- Free Text/Narrative Note: note: Patient is doing well in the period. Minimal lochia, voiding well, ambulated without problems. Nursing without concerns. Patient is afebrile, vital signs are stable Abdomen is flat, soft, uterus is below the umbilicus and is firm and nontender. Legs are nontender. Hemoglobin is 10.2 Assessment: recovery going well. Plan: Routine care. Patient be discharged home within the next 24- 48 hours.
[2017-12-23] MEDS: Ibuprofen 600 MG Tab PO PRN (07:04)
--- NOTE | 2017-12-23 08:42 | PCM.DCSUM1 ---
Discharge Summary - Hospital Course Free Text/Narrative:: rusty is a 32-year-old 3 now para 3003 white female who was admitted on the evening of 12/21/2017 in active labor with advanced cervical dilation. Patient progressed very quickly to 7 cm. She received epidural for analgesia. At 7-8 cm membranes were ruptured resulting in very large amount of clear amniotic fluid. Patient has a history of hydramnios over the course last 3-4 weeks. She has gestational age of 37-0/7 weeks. Patient delivered a viable, crawford, 3490 g (7 lbs. 11 ounce) male with Apgars of 8 and 9 at 2102 hrs. on 12/21/2017. He was placed on mom's abdomen. Nose and mouth were bulb suctioned. The cord was clamped 2 and cut by the baby's father. IV Pitocin was administered to facilitate increase uterine tone and decrease likelihood of bleeding. Cord blood was obtained. The umbilical cord had 3 vessels. The placenta then delivered in a Lopez presentation, appeared intact and complete and was discarded per patient desire. Perineum was intact and no suturing was required. Estimated blood loss was 100 mL. Patient plans to bottlefeed. Condition: Good patient is doing well. She has minimal lochia, was voiding well and ambulated without concerns. She is desiring discharge home. 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 [CONS] Routine - Patient Instructions Diet: Regular Diet as Tolerated Activity: As Tolerated (No intercourse or tampons still bleeding results) Driving: Do Not Drive (1) Showering/Bathing: May Shower Wound/Incision Care: Keep Operative Site/Wound Site Clean and Dry Notify Provider of: Fever, Increased Pain, Swelling and Redness, Drainage, Nausea and/or Vomiting - Discharge Plan *PRESCRIPTION DRUG MONITORING PROGRAM REVIEWED*: No *COPY OF PRESCRIPTION DRUG MONITORING REPORT IN PATIENT MATILDA: No Home Medications: Home Meds Levothyroxine 175 mcg PO DAILY 01/29/17 [History] Ondansetron [Zofran] 4 mg BUCCAL Q6H PRN #8 tab 07/08/17 [Rx] Vit W-Ca,Fe,FA(<1 mg) [ Vitamins] 1 tab PO DAILY 07/08/17 [ History] Ibuprofen [Motrin] 600 mg PO Q4H PRN tablet 12/23/17 [Rx] Patient Handouts: Home Care Instructions for Mom Referrals: Rory Bonilla MD [Primary Care Provider] - (Return to clinicDr. Bonilla2 weeks.) - Discharge Summary/Plan Comment DC Time >30 min.: No Discharge Summary/Plan Comment: Discharge instructions: 1. Discharge home 2. Diet, activity and follow-up discussed with patient. Recommend nursing diet with increased calories and calcium. 3. Precautions given concern increased pain, bleeding, temperature, signs/ symptoms of DVT/PE. 4. Medications per home medication was printed, discussed with and given to the patient. 5. Return to clinic-Dr. Bonilla--Franck in 2 weeks. Diagnosis: Term -delivered Condition: Good - Patient Data Vitals - Most Recent: Last Vital Signs Temp 36.6 C 12/23/17 04:42 Pulse 68 12/23/17 04:42 Resp 14 12/23/17 04:42 BP 101/56 L 12/23/17 04:42 Pulse Ox 96 12/23/17 04:42 Weight - Most Recent: 78.925 kg I&O - Last 24 hours: Intake & Output 12/22/17 12/23/17 12/23/17 22:59 06:59 14:59 Intake Total 240 Balance 240 Lab Results - Last 24 hrs: Laboratory Results - last 24 hr 12/21/17 Range/Units 18:51 RPR Non-reactive (NONREACTIVE) Med Orders - Current: Current Medications Acetaminophen (Tylenol) 650 mg PO Q4H PRN PRN Reason: mild pain or fever Benzocaine/Menthol (Dermoplast Pain Relief [place]) 0 gm TOP ASDIRECTED PRN PRN Reason: Perineal Comfort Measure Docusate Sodium (Colace) 100 mg PO BID PRN PRN Reason: Constipation Ibuprofen (Motrin) 600 mg PO Q4H PRN PRN Reason: Mild pain or fever Last Admin: 12/23/17 07:04 Dose: 600 mg Levothyroxine Sodium (Levothyroxine) 175 mcg PO ACBREAKFAST MAKIOL Last Admin: 12/23/17 05:55 Dose: 175 mcg Witch Elle (Tucks) 1 pad TOP ASDIRECTED PRN PRN Reason: Hemorrhoid pain Discontinued Medications Bupivacaine HCl (Sensorcaine-Mpf 0.25%) 10 ml .ROUTE .STK-MED ONE Stop: 12/21/17 22:01 Ephedrine Sulfate (Ephedrine Sulfate) 5 mg IVPUSH ASDIRECTED PRN PRN Reason: Hypotension Fentanyl (Sublimaze) 100 mcg EPIDUR Q3H PRN PRN Reason: Pain Last Admin: 12/21/17 19:43 Dose: 100 mcg Fentanyl/Bupivacaine HCl (Fentanyl/Bupivacaine/Ns 2 Mcg-0.125% 100 Ml) 100 ml EPIDUR ASDIRECTED MAIKOL Last Admin: 12/21/17 19:42 Dose: 100 ml Lactated Ringer's (Ringers, Lactated) 1,000 mls @ 100 mls/hr IV ASDIRECTED MAIKOL Last Admin: 12/21/17 19:51 Dose: 999 mls/hr Oxytocin/Lactated Ringer's (Pitocin In Lr 10 Units/1,000 Ml) 10 unit in 1,000 mls @ 12 mls/hr IV TITRATE MAIKOL; Protocol Oxytocin/Lactated Ringer's (Pitocin In Lr 10 Units/1,000 Ml) 10 unit in 1,000 mls @ 500 mls/hr IV .CONTINUOUS MAIKOL Last Admin: 12/22/17 05:02 Dose: 500 mls/hr Phenylephrine HCl 1 mg/ Sodium (Chloride) 10.1 mls @ 1 mls/sec IV TITRATE MAIKOL; Protocol Nalbuphine HCl (Nubain) 10 mg IVPUSH Q2H PRN PRN Reason: pain Ondansetron HCl (Zofran) 4 mg IVPUSH ONETIME PRN PRN Reason: Nausea/Vomiting Sodium Chloride (Saline Flush) 10 ml FLUSH ASDIRECTED PRN PRN Reason: Keep Vein Open
[2017-12-23 11:13] VITALS: BP 104/72
== END 2017-12-23 11:30 | disposition home or self-care (01) | DRG 775 ==
LOC: JD.OBCHECK 17:58 → JD.OB 18:01 → JD.OBCHECK 18:29 → JD.OB 18:30 → OBSVTOIN 21:02 → JD.OB 21:03
PROVIDERS: ADMIT Obstetrics & Gynecology; ATTEND Obstetrics & Gynecology
PROC: 10907ZC Drainage of Amniotic Fluid, Therapeutic from Products of Conception, Via Natural or Artificial Opening (ICD-10-PCS; principal; 2017-12-21)
PROC: 6A550ZT Pheresis of Cord Blood Stem Cells, Single (ICD-10-PCS; principal; 2017-12-21)
PROC: 10E0XZZ Delivery of Products of Conception, External Approach (ICD-10-PCS; principal; 2017-12-21)
PROC: 00HU33Z Insertion of Infusion Device into Spinal Canal, Percutaneous Approach (ICD-10-PCS; 2017-12-21)
PROC: 3E0R3BZ Introduction of Anesthetic Agent into Spinal Canal, Percutaneous Approach (ICD-10-PCS; 2017-12-21)
DX: O40.3XX0 Polyhydramnios, third trimester, not applicable or unspecified (principal); Z37.0 Single live birth; Z3A.37 37 weeks gestation of pregnancy; O99.284 Endocrine, nutritional and metabolic diseases complicating childbirth; E89.0 Postprocedural hypothyroidism; O99.62 Diseases of the digestive system complicating childbirth; K52.9 Noninfective gastroenteritis and colitis, unspecified; O99.344 Other mental disorders complicating childbirth; F32.9 Major depressive disorder, single episode, unspecified; F41.9 Anxiety disorder, unspecified; Z87.440 Personal history of urinary (tract) infections; Z88.8 Allergy status to other drugs, medicaments and biological substances; Z88.2 Allergy status to sulfonamides; Z79.899 Other long term (current) drug therapy
CPT/HCPCS: 36415; 59025; 59409; 85025; 85027; 86592; A9270-GY; J2590; J3010; J3490; J7120

== ENCOUNTER 2019-03-01 05:15 | Inpatient (IN) | payer SELFPAY ==
[2019-03-01] MEDS ORDERED: Nalbuphine 10 MG/1 ML Vial IVPUSH PRN (05:29)
[2019-03-01] MEDS ORDERED: Calcium Carbonate 500 MG Tab.Chew PO PRN (05:29)
[2019-03-01] MEDS ORDERED: Lidocaine 1% 50 ML MDV INJECT ONE (05:29)
[2019-03-01] MEDS ORDERED: Ondansetron 4 MG/2 ML SDV IVPUSH PRN (05:29)
[2019-03-01] MEDS ORDERED: Sodium Chloride 0.9% 10 ML Syringe FLUSH PRN (05:29)
[2019-03-01] MEDS ORDERED: Oxytocin/Lactated Ringers 10 UNIT/1,000 ML BAG IV SCH ×2 (05:30→10:30)
[2019-03-01] MEDS ORDERED: Lactated Ringers 3,000 ML ONE (05:34)
[2019-03-01] MEDS: Lactated Ringers 1,000 ML IV SCH ×3 (06:00→08:49)
[2019-03-01] MEDS ORDERED: ePHEDrine 50 MG/ML SDV IVPUSH PRN (06:33)
[2019-03-01] MEDS ORDERED: fentaNYL 100 MCG/2 ML SDV EPIDUR PRN (06:33)
[2019-03-01] MEDS ORDERED: diphenhydrAMINE 50 MG/ML SDV IVPUSH PRN (06:33)
[2019-03-01] MEDS ORDERED: fentaNYL 100 MCG/2 ML SDV ONE (06:37)
--- NOTE | 2019-03-01 06:41 | PCM.PREANE ---
Preanesthetic Assessment - Anesthesia/Transfusion/Family Hx Anesthesia History: Prior Anesthesia Without Reaction Transfusion History: No Prior Transfusion(s) Intubation History: Unknown - Review of Systems General: No Symptoms Pulmonary: No Symptoms Cardiovascular: No Symptoms Gastrointestinal: No Symptoms Neurological: No Symptoms - Physical Assessment NPO Status Date: 03/01/19 NPO Status Time: 05:30 ASA Class: 3 Mental Status: Alert & Oriented x3 Airway Class: Mallampati = 1 Dentition: Reports: Dentures (top) Thyro-Mental Finger Breadths: 3 Mouth Opening Finger Breadths: 3 ROM/Head Extension: Full Lungs: Clear to Auscultation, Normal Respiratory Effort Cardiovascular: Regular Rate, Regular Rhythm - Lab Values: Laboratory Last Values WBC 9.39 K/mm3 (3.98-10.04) 03/01/19 05:44 RBC 3.59 M/mm3 (3.98-5.22) L 03/01/19 05:44 Hgb 11.3 gm/dl (11.2-15.7) 03/01/19 05:44 Hct 33.5 % (34.1-44.9) L 03/01/19 05:44 MCV 93.3 fl (79.4-94.8) 03/01/19 05:44 MCH 31.5 pg (25.6-32.2) 03/01/19 05:44 MCHC 33.7 g/dl (32.2-35.5) 03/01/19 05:44 RDW Std Deviation 41.8 fL (36.4-46.3) 03/01/19 05:44 Plt Count 204 K/mm3 (182-369) 03/01/19 05:44 MPV 9.7 fl (9.4-12.3) 03/01/19 05:44 Neut % (Auto) 62.6 % (34.0-71.1) 03/01/19 05:44 Lymph % (Auto) 27.3 % (19.3-51.7) 03/01/19 05:44 [place] % (Auto) 8.0 % (4.7-12.5) 03/01/19 05:44 Eos % (Auto) 1.4 (0.7-5.8) 03/01/19 05:44 Baso % (Auto) 0.2 % (0.1-1.2) 03/01/19 05:44 Neut # (Auto) 5.88 K/mm3 (1.56-6.13) 03/01/19 05:44 Lymph # (Auto) 2.56 K/mm3 (1.18-3.74) 03/01/19 05:44 [place] # (Auto) 0.75 K/mm3 (0.24-0.36) H 03/01/19 05:44 Eos # (Auto) 0.13 K/mm3 (0.04-0.36) 03/01/19 05:44 Baso # (Auto) 0.02 K/mm3 (0.01-0.08) 03/01/19 05:44 - Allergies Allergies/Adverse Reactions: Allergies Allergy/AdvReac Type Severity Reaction Status Date / Time propranolol Allergy Swelling Verified 02/17/18 08:19 Sulfa (Sulfonamide Allergy Rash Verified 02/17/18 08:19 Antibiotics) - Acknowledgements Anesthesia Type Planned: Epidural Pt an Appropriate Candidate for the Planned Anesthesia: Yes Alternatives and Risks of Anesthesia Discussed w Pt/Guardian: Yes Pt/Guardian Understands and Agrees with Anesthesia Plan: Yes PreAnesthesia Questionnaire - Past Health History Medical/Surgical History: Denies Medical/Surgical History Gastrointestinal History: Reports: Chronic Diarrhea Other Gastrointestinal History: c/o yellow liquid stools for past 2-3 months. 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: Neurological History: Reports: Headaches, Chronic Psychiatric History: Reports: Addiction, Anxiety, Depression Endocrine/Metabolic History: Reports: Hypothyroidism Other Endocrine/Metabolic History: had thryoid removed Hematologic History: Reports: Anemia - Infectious Disease History Infectious Disease History: Reports: Chicken Pox - Past Surgical History Female Surgical History: Reports: Oophorectomy Endocrine Surgical History: Reports: Thyroidectomy - SUBSTANCE USE Smoking Status *Q: Current Every Day Smoker - HOME MEDS Home Medications: Home Meds Levothyroxine 200 mcg PO DAILY 01/29/17 [History] Vit Calc,Iron,Folic [ Vitamins] 1 tab PO DAILY 07/08/17 [ History] Nystatin/Triamcinolone Crm [Mycolog Crm] 15 gm .XX BID #1 tube 02/25/19 [Rx] - CURRENT (IN HOUSE) MEDS Current Meds: Current Medications Calcium Carbonate/Glycine (Tums) 1,000 mg PO Q2H PRN PRN Reason: Indigestion Diphenhydramine HCl (Benadryl) 25 mg IVPUSH Q6H PRN PRN Reason: pruritis Ephedrine Sulfate (Ephedrine Sulfate) 5 mg IVPUSH ASDIRECTED PRN PRN Reason: Hypotension Fentanyl (Sublimaze) 100 mcg EPIDUR Q3H PRN PRN Reason: Pain Fentanyl/Bupivacaine HCl (Fentanyl/Bupivacaine/Ns 2 Mcg-0.125% 250 Ml) ml EPIDUR CONTINUOUS PRN PRN Reason: Pain Lactated Ringer's (Ringers, Lactated) 1,000 mls @ 100 mls/hr IV ASDIRECTED MAIKOL Last Admin: 03/01/19 06:00 Dose: 999 mls/hr Oxytocin/Lactated Ringer's (Pitocin In Lr 10 Units/1,000 Ml) 10 unit in 1,000 mls @ 500 mls/hr IV .CONTINUOUS MAIKOL Nalbuphine HCl (Nubain) 10 mg IVPUSH Q2H PRN PRN Reason: Pain Ondansetron HCl (Zofran) 4 mg IVPUSH Q4H PRN PRN Reason: Nausea/Vomiting Sodium Chloride (Saline Flush) 10 ml FLUSH ASDIRECTED PRN PRN Reason: Keep Vein Open Discontinued Medications Lactated Ringer's (Ringers, Lactated) Confirm Administered Dose 3,000 mls @ as directed .ROUTE .STK-MED ONE Stop: 03/01/19 05:35 Lidocaine HCl (Xylocaine 1%) 20 ml INJECT ONETIME ONE Stop: 03/01/19 05:30
[2019-03-01] MEDS ORDERED: Bupivacaine/fentaNYL/NS 100 ML Bag EPIDUR PRN (06:45)
[2019-03-01] MEDS ORDERED: FLU Vacc QS2019-20(6MOS+)/PF 60 MCG/0.5 ML SYRINGE IM ONE (08:15)
--- NOTE | 2019-03-01 08:38 | PCM.LDHP ---
L&D History of Present Illness - General Date of Service: 03/01/19 Admit Problem/Dx: Patient Status Order with Admit Dx/Problem 03/01/19 05:23 Patient Status [ADT] Routine 03/01/19 05:30 Patient Status [ADT] Routine Admission Diagnosis/Problem Admission Diagnosis/Problem Active labor 03/01/19 08:28 Deborah is a 33-year-old 4 para 3003 white female presently at 38-4/7 weeks gestational age with an BERNA of 03/11/2019 admitted in labor and delivery in active labor with advanced cervical dilation to 6 cm. Source of Information: Patient History Limitations: Reports: No Limitations - History of Present Illness Introduction:: Deborah is a 33-year-old 4 para 3003 white female presently at 38-4/7 weeks gestational age with an BERNA of 03/11/2019 admitted in labor and delivery in active labor with advanced cervical dilation to 6 cm. She was admitted early on the morning of 03/01/2019. While in labor she had spontaneous rupture membranes with resultant clear amniotic fluid. She is sylvia every 3 minutes and has advanced to 7-8 cm since admission to labor and delivery. She is desiring an epidural. 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 BERNA 03/11/2019 is based upon a certain last menstrual period 3 2018 and supported by multiple ultrasounds during the course of . Patient had menarche at approximately age 15. Cycles every 30 days and regular. No total time of conception. Previous obstetric history includes followin. Female born 12/09/2005 at 40 weeks gestational age8 [facility]. [facility] born 09/13/2008 at 40 weeks gestational age after 8 hours [facility]6 [facility]. [facility] Male [id number] weeks3 hours labor7 [facility]. [address] patient desires epidural. Group B strep screen is negative. She was scheduled for induction on 03/10/2019. She declined the influenza vaccine. She has a history of depression. [place] depression screening score on 11/01/2018 was 20/3/30 on recheck on 01/17/201912/27. Patient has history of smoking at least 1 pack cigarettes per day during the entire . She is hypothyroid on replacement medications levothyroxine was increased during the course of her . Patient desires permanent form of sterilization after delivery. She plans to breast-feed. Weight gain during the course has been minimal. Her fundal height growth is ligating approximately 2 cm. Baby is suspected to be small. Vital signs have been stable. Laboratory testing : First visit blood was be positive with negative amateur screen. Hemoglobin 11.8 and platelets were 268,000. Rubella titer shows immunity. RPR is nonreactive. Hepatitis B surface antigen and RPR nonreactive. GC and chlamydia tests were both negative. Her second trimester labs showed hemoglobin 11.4 g/dL. Platelets are 213,000 and diabetic screening test was 121. Her TSH on 12/09/2001 13.395 and free T4 0.92. At that time levothyroxine was increased. Group B strep strep screen is negative. Allergies: Sulfur which causes itching and propranolol which causes swelling. Past medical history: 1. 3 at full-term. 2. Hypothyroidism 3. Abnormal Pap/cervical dysplasia smear with resultant LEEP 2011. Past surgical history: 1. LEEP 2. Oophorectomy for benign reasons Family history: Mother is alive paralyzed reason and lives in a senior living. Father is alive and well. 2 brothers alive and well. Maternal grandmother is alive and well. Maternal grandfather is alive but health is unknown. Paternal grandmother is secondary to an aneurysm. Paternal grandfather at age 100. No family history of cancer, bleeding or blood sinuses, anesthesia- related issues or problems. Review of systems: In general patient has no complaints. Babies active. Contractions noted. Skin: Negative Lungs: No infectious symptoms or shortness of breath Cardiovascular: No chest pain or exercise intolerance Breasts: changes GI: Negative : changes Musculoskeletal: Negative Neurological: Negative In general the patient is well-developed, well-nourished, pleasant female of stated age in no acute distress. Last evaluation clinic on 02/28/2019 weight was 151.8 pounds. Blood pressure is 96/74. Is 143. Skin is warm dry without lesions. HEENT, neck and back within normal limits. Lungs are clear with good breath sounds in all lung garcia. Cardiovascular exam shows regular and rhythm without murmurs. Abdomen is flat, soft, nontender without masses or organomegaly. Positive bowel sounds are noted. No inguinal lymphadenopathy or hernias are noted. Genital per speculum bimanual shows normal external genitalia, BUS, pubic hair pattern. There is normal support, secretions and estrogenization vagina. Uterus is small, anterior, freely mobile, without parametrial induration or adnexal abnormalities. Extremities and neurological exam are grossly within normal limits. Pain Score: 10 - Related Data Allergies/Adverse Reactions: Allergies Allergy/AdvReac Type Severity Reaction Status Date / Time propranolol Allergy Swelling Verified 03/01/19 07:30 Sulfa (Sulfonamide Allergy Rash Verified 03/01/19 07:30 Antibiotics) Home Medications: Home Meds Levothyroxine 112 mcg PO DAILY 01/29/17 [History] Vit Calc,Iron,Folic [ Vitamins] 1 tab PO DAILY 07/08/17 [ History] Ferrous Sulfate [Iron] 325 mg PO DAILY 03/01/19 [History] Past Medical History - Past Health History Medical/Surgical History: Denies Medical/Surgical History Gastrointestinal History: Reports: Chronic Diarrhea Other Gastrointestinal History: c/o yellow liquid stools for past 2-3 months. 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: Neurological History: Reports: Headaches, Chronic Psychiatric History: Reports: Addiction, Anxiety, Depression Endocrine/Metabolic History: Reports: Hypothyroidism Other Endocrine/Metabolic History: had thryoid removed Hematologic History: Reports: Anemia - Infectious Disease History Infectious Disease History: Reports: Chicken Pox - Past Surgical History Female Surgical History: Reports: Oophorectomy Endocrine Surgical History: Reports: Thyroidectomy Social & Family History - Family History Family Medical History: Noncontributory - Tobacco Use Smoking Status *Q: Current Every Day Smoker Years of Tobacco use: 10 Packs/Tins Daily: 1 Used Tobacco, but Quit: No - Caffeine Use Caffeine Use: Reports: Coffee - Recreational Drug Use Recreational Drug Use: No - Living Situation & Occupation Living situation: Reports: , with Spouse, with Family (2 kids) 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) H&P Review of Systems - Review of Systems: Review Of Systems: See Below L&D Exam - Exam Exam: See Below - Vital Signs Vital Signs: Last Vital Signs Temp 36.4 C 03/01/19 05:23 Pulse 59 L 03/01/19 05:23 Resp 16 03/01/19 05:23 BP 117/76 03/01/19 05:23 Pulse Ox 100 03/01/19 05:23 Weight: 69.309 kg - Patient Data Lab Results Last 24 hrs: Laboratory Results - last 24 hr 03/01/19 Range/Units 05:44 WBC 9.39 (3.98-10.04) K/mm3 RBC 3.59 L (3.98-5.22) M/mm3 Hgb 11.3 (11.2-15.7) gm/dl Hct 33.5 L (34.1-44.9) % MCV 93.3 (79.4-94.8) fl MCH 31.5 (25.6-32.2) pg MCHC 33.7 (32.2-35.5) g/dl RDW Std Deviation 41.8 (36.4-46.3) fL Plt Count 204 (182-369) K/mm3 MPV 9.7 (9.4-12.3) fl Neut % (Auto) 62.6 (34.0-71.1) % Lymph % (Auto) 27.3 (19.3-51.7) % [place] % (Auto) 8.0 (4.7-12.5) % Eos % (Auto) 1.4 (0.7-5.8) Baso % (Auto) 0.2 (0.1-1.2) % Neut # (Auto) 5.88 (1.56-6.13) K/mm3 Lymph # (Auto) 2.56 (1.18-3.74) K/mm3 [place] # (Auto) 0.75 H (0.24-0.36) K/mm3 Eos # (Auto) 0.13 (0.04-0.36) K/mm3 Baso # (Auto) 0.02 (0.01-0.08) K/mm3 Result Diagrams: 03/01/19 05:44 Problem List Initiated/Reviewed/Updated: Yes Orders Last 24hrs: Active Orders 24 hr Category Date Time Status Patient Status [ADT] Routine ADT 03/01/19 05:30 Active Activity as Tolerated [RC] PFP Care 03/01/19 05:30 Active Antiembolic Devices [RC] PER UNIT ROUTINE Care 03/01/19 05:31 Active Communication Order [RC] ASDIRECTED Care 03/01/19 05:30 Active Heart Tones [RC] ASDIRECTED Care 03/01/19 05:30 Active Notify Provider [RC] ASDIRECTED Care 03/01/19 06:33 Active Notify Provider [RC] PFP Care 03/01/19 05:30 Active Notify Provider [RC] PRN Care 03/01/19 05:30 Active Peripheral IV Care [RC] Q2HR Care 03/01/19 05:30 Active Pump Management, Intrathecal [RC] ASDIRECTED Care 03/01/19 05:31 Active Urinary Catheter Assessment [RC] ASDIRECTED Care 03/01/19 05:29 Active Regular Diet [DIET] Diet 03/01/19 Breakfast Active BLOOD BANK HOLD SPECIMEN [BBK] Stat Lab 03/01/19 05:29 Ordered RAPID PLASMA REAGIN,RPR [CHEM] Stat Lab 03/01/19 05:44 Received Bupivacaine/fentaNYL/NS [fentaNYL/Bupivacaine/NS 2 MCG- Med 03/01/19 06:45 Active 0.125% 100 ML] 100 ml EPIDUR CONTINUOUS PRN Calcium Carbonate [Tums] Med 03/01/19 05:29 Active 1,000 mg PO Q2H PRN Lactated Ringers [Ringers, Lactated] 1,000 ml Med 03/01/19 05:30 Active IV ASDIRECTED Nalbuphine [Nubain] Med 03/01/19 05:29 Active 10 mg IVPUSH Q2H PRN Ondansetron [Zofran] Med 03/01/19 05:29 Active 4 mg IVPUSH Q4H PRN Oxytocin/Lactated Ringers [Pitocin in LR 10 Units/1,000 Med 03/01/19 05:30 Active ML] 10 unit in 1,000 ml IV .CONTINUOUS Sodium Chloride 0.9% [Saline Flush] Med 03/01/19 05:29 Active 10 ml FLUSH ASDIRECTED PRN diphenhydrAMINE [Benadryl] Med 03/01/19 06:33 Active 25 mg IVPUSH Q6H PRN ePHEDrine [ePHEDrine sulfate] Med 03/01/19 06:33 Active 5 mg IVPUSH ASDIRECTED PRN fentaNYL [Sublimaze] Med 03/01/19 06:33 Active 100 mcg EPIDUR Q3H PRN Electronic Heart Tones Ext w TOCO [WOMSER] Oth 03/01/19 05:30 Ordered Routine Electronic Heart Tones Internal [WOMSER] Per Unit Oth 03/01/19 05:30 Ordered Routine Peripheral IV Insertion Adult [OM.PC] Routine Oth 03/01/19 05:30 Ordered Sequential Compression Device [OM.PC] Routine Oth 03/01/19 05:29 Ordered Resuscitation Status Routine Resus Stat 03/01/19 05:23 Ordered Medication Orders Calcium Carbonate/Glycine (Tums) 1,000 mg PO Q2H PRN PRN Reason: Indigestion Diphenhydramine HCl (Benadryl) 25 mg IVPUSH Q6H PRN PRN Reason: pruritis Ephedrine Sulfate (Ephedrine Sulfate) 5 mg IVPUSH ASDIRECTED PRN PRN Reason: Hypotension Fentanyl (Sublimaze) 100 mcg EPIDUR Q3H PRN PRN Reason: Pain Last Admin: 03/01/19 07:04 Dose: 100 mcg Fentanyl/Bupivacaine HCl (Fentanyl/Bupivacaine/Ns 2 Mcg-0.125% 100 Ml) 100 ml EPIDUR CONTINUOUS PRN PRN Reason: PAIN Last Admin: 03/01/19 07:05 Dose: 100 ml Lactated Ringer's (Ringers, Lactated) 1,000 mls @ 100 mls/hr IV ASDIRECTED MAIKOL Last Admin: 03/01/19 07:18 Dose: 999 mls/hr Infusion: 03/01/19 07:01 Dose: 999 mls/hr Admin: 03/01/19 06:00 Dose: 999 mls/hr Oxytocin/Lactated Ringer's (Pitocin In Lr 10 Units/1,000 Ml) 10 unit in 1,000 mls @ 500 mls/hr IV .CONTINUOUS MAIKOL Nalbuphine HCl (Nubain) 10 mg IVPUSH Q2H PRN PRN Reason: Pain Ondansetron HCl (Zofran) 4 mg IVPUSH Q4H PRN PRN Reason: Nausea/Vomiting Sodium Chloride (Saline Flush) 10 ml FLUSH ASDIRECTED PRN PRN Reason: Keep Vein Open Assessment/Plan Comment:: 1. 38-3/7 week intrauterine , spontaneous labor, spontaneous rupture membranes with resultant clear amniotic fluid 2. Risk factors for include history smoking. 3. Patient plans to breast-feed. 4. Patient is rubella immune. T Dap was given on 12/29/2018. Patient declined influenza vaccination 5. Patient desires epidural Plan: 1. Anticipate 2. Epidural per patient desire 3. Support breast-feeding decision 4. Routine labor care. 5. RPR and CBC upon admission
--- NOTE | 2019-03-01 12:04 | PCM.SN ---
- Free Text/Narrative Note: Delivery note: Deborah is a 33-year-old 4 para 3003 white female presently at 38-4/7 weeks gestational age with an BERNA of 03/11/2019 admitted in labor and delivery in active labor with advanced cervical dilation to 6 cm. She was admitted early on the morning of 03/01/2019. While in labor she had spontaneous rupture membranes with resultant clear amniotic fluid. She is sylvia every 3 minutes and has advanced to 7-8 cm since admission to labor and delivery. Deborah progressed slowly until about 8 cm then rapidly after 8 cm. She had Pitocin for augmentation.. She had an epidural for labor pain control. She delivered a viable, crawford, female infant with Apgars of 9 and 9, a length of 19.0 inches, a weight of 2450 g (5 pounds 6.4 ounces) at 1142 hrs. on 2018 in a left occiput anterior position over an intact perineum. The baby was placed in mom's abdomen. Pitocin was increased to 500 mL/h to facilitate increase in uterine tone and decreased likelihood of bleeding. The cord was allowed to pulsate for approximately 1-2 minutes then was clamped 2 and cut by the baby's father. Cord blood was obtained. The placenta delivered at approximately 1244 hrs. It appeared to be intact and complete and delivered in a Lopez presentation. It was discarded per patient desire. Patient lost approximately 200 mL of blood. Condition: Good. Patient plans to breast-feed.
[2019-03-01] MEDS ORDERED: Docusate Sodium 100 MG Cap PO PRN (12:06)
[2019-03-01] MEDS ORDERED: Acetaminophen 325 MG Tab PO PRN (12:06)
[2019-03-01] MEDS ORDERED: Witch Hazel Medicated Pads 40/Jar TOP PRN (12:06)
[2019-03-01] MEDS ORDERED: Benzocaine/Menthol 20%-0.5% Spray 56 GM Canister TOP PRN (12:06)
[2019-03-01] MEDS: Ibuprofen 600 MG Tab PO PRN ×2 (14:36→22:08)
[2019-03-01] MEDS ORDERED: Cyclobenzaprine 10 MG Tab PO PRN (21:32)
[2019-03-02] MEDS ORDERED: Levothyroxine 112 MCG Tab PO SCH (07:00)
--- NOTE | 2019-03-02 07:50 | PCM48HPAN ---
Post Anesthesia Note - EVALUATION WITHIN 48HRS OF ANESTHETIC Vital Signs in Normal Range: Yes Patient Participated in Evaluation: Yes Respiratory Function Stable: Yes Airway Patent: Yes Cardiovascular Function Stable: Yes Hydration Status Stable: Yes Pain Control Satisfactory: Yes Nausea and Vomiting Control Satisfactory: Yes Mental Status Recovered: Yes Vital Signs: Last Vital Signs Temp 98.2 F 03/02/19 03:59 Pulse 51 L 03/02/19 03:59 Resp 16 03/02/19 03:59 BP 100/69 03/02/19 03:59 Pulse Ox 100 03/02/19 03:59 - COMMENTS/OBSERVATIONS Free Text/Narrative:: Patient is on her day 1 after having inadvertent dural puncture during epidural placement and subsequent epidural blood patch. . Patient reported having no more headaches today, appears in good spirits and reports no back soreness at this time. Explanation given about importance of avoiding back straining. Comfortable now. Ambulating, no difficulty urinating.
[2019-03-02] MEDS ORDERED: Prenatal Multivitamin with Calcium/Folic Acid/Iron Tab PO SCH (09:00)
[2019-03-02] MEDS ORDERED: FLU Vacc QS2019-20(6MOS+)/PF 60 MCG/0.5 ML SYRINGE IM ONE (10:56)
--- NOTE | 2019-03-02 13:09 | PCM.DCSUM1 ---
Discharge Summary - Hospital Course Free Text/Narrative:: Deborah is a 33-year-old 4 para 3003 white female presently at 38-4/7 weeks gestational age with an BERNA of 03/11/2019 admitted in labor and delivery in active labor with advanced cervical dilation to 6 cm. She was admitted early on the morning of 03/01/2019. While in labor she had spontaneous rupture membranes with resultant clear amniotic fluid. She is sylvia every 3 minutes and has advanced to 7-8 cm since admission to labor and delivery. Deborah progressed slowly until about 8 cm then rapidly after 8 cm. She had Pitocin for augmentation.. She had an epidural for labor pain control. She delivered a viable, crawford, female with Apgars of 9 and 9, a length of 19.0 inches, a weight of 2450 g (5 pounds 6.4 ounces) at 1142 hrs. on 2018 in a left occiput anterior position over an intact perineum. The baby was placed in mom's abdomen. Pitocin was increased to 500 mL/h to facilitate increase in uterine tone and decreased likelihood of bleeding. The cord was allowed to pulsate for approximately 1-2 minutes then was clamped 2 and cut by the baby's father. Cord blood was obtained. The placenta delivered at approximately 1244 hrs. It appeared to be intact and complete and delivered in a Lopez presentation. It was discarded per patient desire. Patient lost approximately 200 mL of blood. Patient is bottle feeding. She is done well. Ablated without concerns, voiding without problems. She is bottlefeeding. She desires discharge home. Condition: Good Diagnosis: Stroke: No - Discharge Data Discharge Date: 03/02/19 Discharge Disposition: Home, Self-Care 01 Condition: Good - Referral to Home Health Primary Care Physician: Rory Bonilla MD - Patient Instructions Diet: Regular Diet as Tolerated Activity: As Tolerated (No intercourse or tampons until bleeding resolves) Driving: May Drive Today Showering/Bathing: May Shower (May take a bath) Notify Provider of: Fever, Increased Pain, Swelling and Redness, Nausea and/or Vomiting - Discharge Plan Home Medications: Home Meds Levothyroxine 112 mcg PO DAILY 01/29/17 [History] Vit Calc,Iron,Folic [ Vitamins] 1 tab PO DAILY 07/08/17 [ History] Ferrous Sulfate [Iron] 325 mg PO DAILY 03/01/19 [History] Acetaminophen [Tylenol] 650 mg PO Q4H PRN tablet 03/02/19 [Rx] Ibuprofen [Motrin] 600 mg PO Q4H PRN tablet 03/02/19 [Rx] Patient Handouts: Steps to Quit Smoking Referrals: Rory Bonilla MD [Primary Care Provider] - - Discharge Summary/Plan Comment DC Time >30 min.: No Discharge Summary/Plan Comment: Discharge instructions: 1. Discharge home 2. Diet, activity and follow-up discussed with patient. 3. Precautions given concern increased pain, bleeding, temperature, signs/ symptoms of DVT/PE. 4. Medications per home medication was printed, discussed with and given to the patient. 5. Return to clinic-[facility]. Bonilla[facility] in 2 weeks. Diagnosis: Term -delivered Condition: Good - Patient Data Vitals - Most Recent: Last Vital Signs Temp 36.8 C 03/02/19 08:25 Pulse 57 L 03/02/19 08:25 Resp 14 03/02/19 08:25 BP 93/56 L 03/02/19 08:25 Pulse Ox 99 03/02/19 08:25 Weight - Most Recent: 69.309 kg I&O - Last 24 hours: Intake & Output 03/01/19 03/02/19 03/02/19 22:59 06:59 14:59 Intake Total 60 300 Balance 60 300 Lab Results - Last 24 hrs: Laboratory Results - last 24 hr 03/01/19 03/01/19 03/01/19 Range/Units 05:44 15:00 15:00 WBC 15.67 H (3.98-10.04) K/mm3 RBC 3.41 L (3.98-5.22) M/mm3 Hgb 10.7 L (11.2-15.7) gm/dl Hct 31.8 L (34.1-44.9) % MCV 93.3 (79.4-94.8) fl MCH 31.4 (25.6-32.2) pg MCHC 33.6 (32.2-35.5) g/dl RDW Std Deviation 41.4 (36.4-46.3) fL Plt Count 176 L (182-369) K/mm3 MPV 10.1 (9.4-12.3) fl Neut % (Auto) 81.6 H (34.0-71.1) % Lymph % (Auto) 11.3 L (19.3-51.7) % [place] % (Auto) 6.4 (4.7-12.5) % Eos % (Auto) 0.3 L (0.7-5.8) Baso % (Auto) 0.1 (0.1-1.2) % Neut # (Auto) 12.80 H (1.56-6.13) K/mm3 Lymph # (Auto) 1.77 (1.18-3.74) K/mm3 [place] # (Auto) 1.01 H (0.24-0.36) K/mm3 Eos # (Auto) 0.04 (0.04-0.36) K/mm3 Baso # (Auto) 0.01 (0.01-0.08) K/mm3 Sodium 139 (136-145) mEq/L Potassium 3.3 L (3.5-5.1) mEq/L Chloride 104 (98-107) mEq/L Carbon Dioxide 23 (21-32) mEq/L Anion Gap 15.3 H (5-15) BUN 5 L (7-18) mg/dL Creatinine 0.7 (0.55-1.02) mg/dL Est Cr Clr Drug Dosing 109.01 mL/min Estimated GFR (MDRD) > 60 (>60) mL/min BUN/Creatinine Ratio 7.1 L (14-18) Glucose 73 L (74-106) mg/dL Calcium 8.1 L (8.5-10.1) mg/dL Total Bilirubin 0.4 (0.2-1.0) mg/dL AST 18 (15-37) U/L ALT 10 L (14-59) U/L Alkaline Phosphatase 162 H (46-116) U/L Total Protein 6.3 L (6.4-8.2) g/dl Albumin 2.5 L (3.4-5.0) g/dl Globulin 3.8 gm/dL Albumin/Globulin Ratio 0.7 L (1-2) RPR Non-reactive (NONREACTIVE) Med Orders - Current: Current Medications Acetaminophen (Tylenol) 650 mg PO Q4H PRN PRN Reason: mild pain or fever Last Admin: 03/01/19 18:05 Dose: 650 mg Benzocaine/Menthol (Dermoplast Pain Relief [place]) 0 gm TOP ASDIRECTED PRN PRN Reason: Perineal Comfort Measure Cyclobenzaprine HCl (Flexeril) 10 mg PO TID PRN PRN Reason: Muscle Spasm Docusate Sodium (Colace) 100 mg PO BID PRN PRN Reason: Constipation Ibuprofen (Motrin) 600 mg PO Q4H PRN PRN Reason: Mild pain or fever Last Admin: 03/01/19 22:08 Dose: 600 mg Levothyroxine Sodium (Levothyroxine) 112 mcg PO DAILY@0700 [facility] Last Admin: 03/02/19 07:18 Dose: 112 mcg Prenat Multivit/Hand Mounter/Iron/Folic Ac ( Plus Iron) 1 each PO DAILY [facility] Last Admin: 03/02/19 11:16 Dose: 1 each Witch Elle (Tucks) 1 pad TOP ASDIRECTED PRN PRN Reason: Pain Discontinued Medications Calcium Carbonate/Glycine (Tums) 1,000 mg PO Q2H PRN PRN Reason: Indigestion Diphenhydramine HCl (Benadryl) 25 mg IVPUSH Q6H PRN PRN Reason: pruritis Ephedrine Sulfate (Ephedrine Sulfate) 5 mg IVPUSH ASDIRECTED PRN PRN Reason: Hypotension Fentanyl (Sublimaze) 100 mcg EPIDUR Q3H PRN PRN Reason: Pain Last Admin: 03/01/19 07:04 Dose: 100 mcg Fentanyl (Sublimaze) Confirm Administered Dose 100 mcg .ROUTE .[facility] ONE Stop: 03/01/19 06:38 Last Admin: 03/01/19 08:20 Dose: Not Given Fentanyl/Bupivacaine HCl (Fentanyl/Bupivacaine/Ns 2 Mcg-0.125% 100 Ml) 100 ml EPIDUR CONTINUOUS PRN PRN Reason: PAIN Last Admin: 03/01/19 07:05 Dose: 100 ml Lactated Ringer's (Ringers, Lactated) 1,000 mls @ 100 mls/hr IV ASDIRECTED [facility] Last Admin: 03/01/19 08:49 Dose: 999 mls/hr Oxytocin/Lactated Ringer's (Pitocin In Lr 10 Units/1,000 Ml) 10 unit in 1,000 mls @ 500 mls/hr IV .CONTINUOUS MAIKOL Lactated Ringer's (Ringers, Lactated) Confirm Administered Dose 3,000 mls @ as directed .ROUTE .[facility] ONE Stop: 03/01/19 05:35 Last Admin: 03/01/19 08:20 Dose: Not Given Oxytocin/Lactated Ringer's (Pitocin In Lr 10 Units/1,000 Ml) 10 unit in 1,000 mls @ 12 mls/hr IV TITRATE MAIKOL; Protocol Last Titration: 03/01/19 11:43 Dose: 500 mls/hr Influenza Virus Vaccine (Fluzone Quad Syringe) 60 mcg IM .ONCE ONE Stop: 03/01/19 08:16 Last Admin: 03/02/19 12:38 Dose: Not Given Influenza Virus Vaccine (Fluzone Quad Syringe) 60 mcg IM .ONCE ONE Stop: 03/02/19 10:57 Last Admin: 03/02/19 11:16 Dose: 60 mcg Lidocaine HCl (Xylocaine 1%) 20 ml INJECT ONETIME ONE Stop: 03/01/19 05:30 Last Admin: 03/01/19 11:56 Dose: Not Given Nalbuphine HCl (Nubain) 10 mg IVPUSH Q2H PRN PRN Reason: Pain Ondansetron HCl (Zofran) 4 mg IVPUSH Q4H PRN PRN Reason: Nausea/Vomiting Sodium Chloride (Saline Flush) 10 ml FLUSH ASDIRECTED PRN PRN Reason: Keep Vein Open
[2019-03-02 18:18] VITALS: BP 101/61; PULSE 58
== END 2019-03-02 14:00 | DRG 807 ==
LOC: JD.OBCHECK 05:15 → JD.OB 06:15 → OBSVTOIN 11:42 → JD.OB 11:42
PROVIDERS: ADMIT Obstetrics & Gynecology; ATTEND Obstetrics & Gynecology
PROC: 10E0XZZ Delivery of Products of Conception, External Approach (ICD-10-PCS; principal; 2019-03-01)
PROC: 3E0R3BZ Introduction of Anesthetic Agent into Spinal Canal, Percutaneous Approach (ICD-10-PCS; 2019-03-01)
PROC: 3E0R3GC Introduction of Other Therapeutic Substance into Spinal Canal, Percutaneous Approach (ICD-10-PCS; 2019-03-01)
PROC: 3E02340 Introduction of Influenza Vaccine into Muscle, Percutaneous Approach (ICD-10-PCS; 2019-03-02)
DX: O69.1XX0 Labor and delivery complicated by cord around neck, with compression, not applicable or unspecified (principal); Z37.0 Single live birth; O99.284 Endocrine, nutritional and metabolic diseases complicating childbirth; E03.9 Hypothyroidism, unspecified; O99.02 Anemia complicating childbirth; D64.9 Anemia, unspecified; G97.1 Other reaction to spinal and lumbar puncture; Y84.4 Aspiration of fluid as the cause of abnormal reaction of the patient, or of later complication, without mention of misadventure at the time of the procedure; Z3A.38 38 weeks gestation of pregnancy; Z23 Encounter for immunization
CPT/HCPCS: 36415; 51702; 59025; 59409; 80053; 85025; 86592; 90686; A9270-GY; G0008; G0010; J2590; J3010; J7120

== ENCOUNTER 2019-03-03 08:08 | Emergency (ER) | payer SELFPAY ==
[2019-03-03 08:23] VITALS: BP 110/70; PULSE 47
[2019-03-03] MEDS ORDERED: Cyclobenzaprine 10 MG Tab PO ONE ×2 (08:37→09:00)
[2019-03-03] MEDS ORDERED: HYDROmorphone 0.5 MG/0.5 ML Syringe IM ONE (08:37)
--- NOTE | 2019-03-03 09:16 | EDM.PDOC ---
<Jadyn Oliva - Last Filed: 03/03/19 09:19> ED HPI GENERAL MEDICAL PROBLEM - General Chief Complaint: Neck Problem Stated Complaint: UNABLE TO HOLD UP NECK Time Seen by Provider: 03/03/19 08:23 Source of Information: Reports: Patient History Limitations: Reports: No Limitations - History of Present Illness INITIAL COMMENTS - FREE TEXT/NARRATIVE: 33 year old white female with complaints of neck pain. Pt reports that on she delivered a baby. This was a normal vaginal delivery. She did have an epidural with a blood patch. She did have a headache while in the hospital but states that the pain was relieved by tylenol and ibuprofen. Pt was discharged from the hospital yesterday afternoon. She said that when she was riding in her car on the way home that she developed pain at the base of her skull in her neck that radiated down and then between her shoulders. She states that she does not have pain when laying flat in bed, but when she sits up, she is unable to tolerated the neck and shoulder pain. Has been taking tylenol and ibuprofen and this has not helped. Last dose was tylenol at 0400 this morning. She said that her has been massaging the area and this seems to be helping as well as using the heating pad. Pt is not . Neck Pain Score (Numeric/FACES): 10 - Related Data Allergies Allergy/AdvReac Type Severity Reaction Status Date / Time propranolol Allergy Swelling Verified 03/06/19 10:14 Sulfa (Sulfonamide Allergy Rash Verified 03/06/19 10:14 Antibiotics) Home Meds: Home Meds Levothyroxine 112 mcg PO DAILY 01/29/17 [History] Vit Calc,Iron,Folic [ Vitamins] 1 tab PO DAILY 07/08/17 [ History] Ferrous Sulfate [Iron] 325 mg PO DAILY 03/01/19 [History] Acetaminophen [Tylenol] 650 mg PO Q4H PRN tablet 03/02/19 [Rx] Ibuprofen [Motrin] 600 mg PO Q4H PRN tablet 03/02/19 [Rx] Acetaminophen/HYDROcodone [[place] 325-5 MG] 1 tab PO Q6H PRN #14 tablet 03/03/19 [Rx] Cyclobenzaprine [Flexeril] 5 mg PO TID PRN #14 tab 12/05/19 [Rx] Past Medical History - Past Health History Medical/Surgical History: Denies Medical/Surgical History Gastrointestinal History: Reports: Chronic Diarrhea Other Gastrointestinal History: c/o yellow liquid stools for past 2-3 months. 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: Neurological History: Reports: Headaches, Chronic Psychiatric History: Reports: Addiction, Anxiety, Depression Endocrine/Metabolic History: Reports: Hypothyroidism Other Endocrine/Metabolic History: had thryoid removed Hematologic History: Reports: Anemia - Infectious Disease History Infectious Disease History: Reports: Chicken Pox - Past Surgical History Female Surgical History: Reports: Oophorectomy Endocrine Surgical History: Reports: Thyroidectomy Social & Family History - Family History Family Medical History: Noncontributory - Tobacco Use Smoking Status *Q: Current Every Day Smoker Years of Tobacco use: 10 Packs/Tins Daily: 0.5 - Caffeine Use Caffeine Use: Reports: Coffee, Soda - Recreational Drug Use Recreational Drug Use: No - Living Situation & Occupation Living situation: Reports: , with Spouse, with Family (2 kids) 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[employer]) ED ROS GENERAL - Review of Systems Review Of Systems: See Below Constitutional: Reports: No Symptoms HEENT: Reports: No Symptoms Respiratory: Reports: No Symptoms Cardiovascular: Reports: No Symptoms Endocrine: Reports: No Symptoms GI/Abdominal: Reports: No Symptoms : Reports: No Symptoms Musculoskeletal: Reports: Neck Pain, Shoulder Pain, Muscle Pain Skin: Reports: No Symptoms Neurological: Reports: No Symptoms Psychiatric: Reports: No Symptoms Hematologic/Lymphatic: Reports: No Symptoms Immunologic: Reports: No Symptoms ED EXAM, UPPER BACK/NECK PAIN - Physical Exam Exam: See Below Exam Limited By: No Limitations General Appearance: Alert, WD/WN, No Apparent Distress Ears Exam: Normal External Exam, Hearing Grossly Normal Nose Exam: Normal Inspection, No Blood Throat/Mouth Exam: Normal Inspection, Normal Lips, Normal Voice, No Airway Compromise Head Exam: Atraumatic, Normocephalic Neck Exam: Full Range of Motion, Normal Alignment, Normal Inspection, Paraspinous Muscle Tender, Spinous Processes Tender, Tenderness, Tender Lateral (pt states pain to her neck and base of skull when sitting up, denies pain when laying flat. Massage helps decrease pain. ), Other (pt has paraspinous pain in her neck and between shoulder blades. Pain starts at the base of the skull. Pain is relieved by massage. ) Nexus Criteria: No: Posterior, Midline Cervical Tenderness Cardiovascular/Respiratory: Regular Rate, Rhythm, Normal Breath Sounds, No Respiratory Distress GI/Abdominal: Normal Bowel Sounds, Soft, Non-Tender (Female) Exam: Deferred Rectal (Female) Exam: Deferred Back Exam: Normal Inspection, Full Range of Motion. No: Muscle Spasm Extremities: Normal Inspection, Normal Range of Motion, Non-Tender, No Pedal Edema, Normal Capillary Refill Neurologic: No Motor/Sensory Deficits, Alert, Normal Mood/Affect, Oriented x 3 Psychiatric: Normal Affect, Normal Mood Skin Exam: Normal Color, Warm/Dry Lymphatic: No Adenopathy Course - Vital Signs Last Recorded V/S: Last Vital Signs Temp 97.1 F 03/03/19 08:20 Pulse 47 L 03/03/19 08:20 Resp 18 03/03/19 08:20 BP 110/70 03/03/19 08:20 Pulse Ox 99 03/03/19 08:20 - Orders/Labs/Meds Meds: Medications Discontinued Medications Generic Name Dose Route Start Last Admin Trade Name Freq PRN Reason Stop Dose Admin Cyclobenzaprine HCl 10 mg 03/03/19 08:37 03/03/19 09:00 Flexeril PO 03/03/19 08:38 10 mg ONETIME ONE Administration Cyclobenzaprine HCl 5 mg 03/03/19 09:00 03/03/19 09:33 Flexeril PO 03/03/19 09:01 Not Given ONETIME ONE Hydromorphone HCl 0.5 mg 03/03/19 08:37 03/03/19 09:00 Dilaudid IM 03/03/19 08:38 0.5 mg ONETIME ONE Administration - Re-Assessments/Exams Free Text/Narrative Re-Assessment/Exam: 03/03/19 09:00 I believe that this pain is musculoskeletal, therefore I have ordered Flexeril and Dilaudid. Departure - Departure Disposition: Home, Self-Care 01 Clinical Impression: Neck pain - Discharge Information Prescriptions: Acetaminophen/HYDROcodone [[place] 325-5 MG] 1 tab PO Q6H PRN #14 tablet PRN Reason: Pain Cyclobenzaprine [Flexeril] 5 mg PO TID PRN #14 tab PRN Reason: Spasms Instructions: Muscle Pain, Adult, Musculoskeletal Pain Referrals: Rory Bonilla MD [Primary Care Provider] - Forms: ED Department Discharge Additional Instructions: Flexeril 5 mg 2-3 times daily as needed for muscle spasm and discomfort. Tylenol up to 3 times daily for mild to moderate discomfort or hydrocodone if needed for severe pain. Prescriptions have been sent to [facility] pharmacy. Do not take Tylenol and hydrocodone at the same time. Once the pain does start getting better you also can take a one half tablet hydrocodone along with a 500 mg Tylenol 6-8 hours until you are able to go to just taking Tylenol. Follow-up with your regular medical provider if this does not get much better within 3-4 days as expected. Return to ED as needed if symptoms worsening in any way. <Zach Crews - Last Filed: 03/06/19 12:58> Course - Re-Assessments/Exams Free Text/Narrative Re-Assessment/Exam: 03/06/19 12:58 Initial hx and exam was done by Jadyn VERGARA student. I agree with her hx and exam as documented. I have also examined and interviewed patient. Discharge instr. as documented. Departure - Departure Time of Disposition: 09:41 Condition: Fair
== END 2019-03-03 10:05 | disposition home or self-care (01) ==
LOC: JD.ED 08:08
DX: O90.89 Other complications of the puerperium, not elsewhere classified (principal); M54.2 Cervicalgia; O99.335 Smoking (tobacco) complicating the puerperium; F17.210 Nicotine dependence, cigarettes, uncomplicated; O99.285 Endocrine, nutritional and metabolic diseases complicating the puerperium; E03.9 Hypothyroidism, unspecified; O99.345 Other mental disorders complicating the puerperium; F41.9 Anxiety disorder, unspecified; F32.9 Major depressive disorder, single episode, unspecified; Z79.899 Other long term (current) drug therapy; Z88.2 Allergy status to sulfonamides
CPT/HCPCS: 96372; 99283; A9270; J1170; 99284

== ENCOUNTER 2019-03-06 09:32 | Emergency (ER) | payer SELFPAY ==
[2019-03-06 10:15] VITALS: BP 132/91; PULSE 47
--- NOTE | 2019-03-06 10:25 | EDM.PDOC ---
<Chava Mario - Last Filed: 03/06/19 10:24> ED HPI GENERAL MEDICAL PROBLEM - General Chief Complaint: Headache Stated Complaint: NECK BACK UNABLE TO HEAR OUT OF RIGHT EAR Time Seen by Provider: 03/06/19 11:15 Source of Information: Reports: Patient History Limitations: Reports: No Limitations Back Pain Score (Numeric/FACES): 4 - Related Data Allergies Allergy/AdvReac Type Severity Reaction Status Date / Time propranolol Allergy Swelling Verified 03/06/19 10:14 Sulfa (Sulfonamide Allergy Rash Verified 03/06/19 10:14 Antibiotics) Home Meds: Home Meds Levothyroxine 112 mcg PO DAILY 01/29/17 [History] Vit Calc,Iron,Folic [ Vitamins] 1 tab PO DAILY 07/08/17 [ History] Ferrous Sulfate [Iron] 325 mg PO DAILY 03/01/19 [History] Acetaminophen [Tylenol] 650 mg PO Q4H PRN tablet 03/02/19 [Rx] Ibuprofen [Motrin] 600 mg PO Q4H PRN tablet 03/02/19 [Rx] Acetaminophen/HYDROcodone [[place] 325-5 MG] 1 tab PO Q6H PRN #14 tablet 03/03/19 [Rx] Acetaminophen/HYDROcodone [[place] 325-5 MG] 1 tab PO Q6H PRN #12 tablet 03/06/19 [Rx] Past Medical History - Past Health History Medical/Surgical History: Denies Medical/Surgical History Gastrointestinal History: Reports: Chronic Diarrhea Other Gastrointestinal History: c/o yellow liquid stools for past 2-3 months. 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: Neurological History: Reports: Headaches, Chronic Psychiatric History: Reports: Addiction, Anxiety, Depression Endocrine/Metabolic History: Reports: Hypothyroidism Other Endocrine/Metabolic History: had thryoid removed Hematologic History: Reports: Anemia - Infectious Disease History Infectious Disease History: Reports: Chicken Pox - Past Surgical History Female Surgical History: Reports: Oophorectomy Endocrine Surgical History: Reports: Thyroidectomy Social & Family History - Family History Family Medical History: Noncontributory - Caffeine Use Caffeine Use: Reports: Coffee, Soda - Living Situation & Occupation Living situation: Reports: , with Spouse, with Family (2 kids) 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 DIRECTED Care 03/06/19 11:17 Active Dextrose 5%-0.9% NaCl [Dextrose 5%-Normal Saline] 1,000 Med 03/06/19 11:30 Active ml IV ASDIRECTED Sodium Chloride 0.9% [Saline Flush] Med 03/06/19 11:17 Active 10 ml FLUSH ASDIRECTED PRN Peripheral IV Insertion Adult [OM.PC] Stat Oth 03/06/19 11:17 Ordered Medication Orders Dextrose/Sodium Chloride (Dextrose 5%-Normal Saline) 1,000 mls @ 999 mls/hr IV ASDIRECTED MAIKOL Last Admin: 03/06/19 12:21 Dose: 999 mls/hr Sodium Chloride (Saline Flush) 10 ml FLUSH ASDIRECTED PRN PRN Reason: Keep Vein Open Last Admin: 03/06/19 12:20 Dose: 10 ml Labs: Laboratory Tests 03/06/19 03/06/19 Range/Units 12:10 12:10 WBC 6.90 (3.98-10.04) K/mm3 RBC 4.38 (3.98-5.22) M/mm3 Hgb 13.9 D (11.2-15.7) gm/dl Hct 40.1 (34.1-44.9) % MCV 91.6 (79.4-94.8) fl MCH 31.7 (25.6-32.2) pg MCHC 34.7 (32.2-35.5) g/dl RDW Std Deviation 41.5 (36.4-46.3) fL Plt Count 280 D (182-369) K/mm3 MPV 9.3 L (9.4-12.3) fl Neutrophils % (Manual) 53 (40-60) % Band Neutrophils % 0 (0-10) % Lymphocytes % (Manual) 38 (20-40) % Atypical Lymphs % 0 % Monocytes % (Manual) 8 (2-10) % Eosinophils % (Manual) 1 (0.7-5.8) % Basophils % (Manual) 0 L (0.1-1.2) Platelet Estimate Adequate RBC Morph Comment Normal Sodium 142 (136-145) mEq/L Potassium 3.5 (3.5-5.1) mEq/L Chloride 104 (98-107) mEq/L Carbon Dioxide 25 (21-32) mEq/L Anion Gap 16.5 H (5-15) BUN 9 (7-18) mg/dL Creatinine 0.9 (0.55-1.02) mg/dL Est Cr Clr Drug Dosing 88.07 mL/min Estimated GFR (MDRD) > 60 (>60) mL/min BUN/Creatinine Ratio 10.0 L (14-18) Glucose 102 (74-106) mg/dL Calcium 9.2 (8.5-10.1) mg/dL Magnesium 1.8 (1.8-2.4) mg/dl Total Bilirubin 0.4 (0.2-1.0) mg/dL AST 19 (15-37) U/L ALT 24 (14-59) U/L Alkaline Phosphatase 157 H (46-116) U/L Total Protein 8.3 H (6.4-8.2) g/dl Albumin 3.3 L (3.4-5.0) g/dl Globulin 5.0 gm/dL Albumin/Globulin Ratio 0.7 L (1-2) Meds: Medications Generic Name Dose Route Start Last Admin Trade Name Freq PRN Reason Stop Dose Admin Dextrose/Sodium Chloride 1,000 mls @ 999 mls/hr 03/06/19 11:30 03/06/19 12:21 Dextrose 5%-Normal Saline IV 999 mls/hr ASDIRECTED MAIKOL Administration Sodium Chloride 10 ml 03/06/19 11:17 03/06/19 12:20 Saline Flush FLUSH 10 ml ASDIRECTED PRN Administration Keep Vein Open Discontinued Medications Generic Name Dose Route Start Last Admin Trade Name Freq PRN Reason Stop Dose Admin Dexamethasone 10 mg 03/06/19 11:18 03/06/19 12:28 Dexamethasone IM 03/06/19 11:19 Not Given ONETIME ONE Dexamethasone 10 mg 03/06/19 12:26 03/06/19 12:30 Dexamethasone IVPUSH 03/06/19 12:27 10 mg ONETIME ONE Administration Hydromorphone HCl 0.5 mg 03/06/19 11:19 03/06/19 12:18 Dilaudid IVPUSH 03/06/19 11:20 0.5 mg ONETIME ONE Administration Metoclopramide HCl 7.5 mg 03/06/19 11:19 03/06/19 12:15 Reglan IVPUSH 03/06/19 11:20 7.5 mg ONETIME ONE Administration Departure - Departure Disposition: Home, Self-Care 01 Clinical Impression: Neck pain, Headache in back of head Back pain Qualifiers: Back pain location: thoracic back pain Chronicity: unspecified Back pain laterality: midline Qualified Code(s): M54.6 - Pain in thoracic spine - Discharge Information Prescriptions: Acetaminophen/HYDROcodone [[place] 325-5 MG] 1 tab PO Q6H PRN #12 tablet PRN Reason: Pain Instructions: Tension Headache, Adult, [id number] Referrals: Rory Bonilla MD [Primary Care Provider] - Forms: ED Department Discharge Additional Instructions: You have been evaluated in the ED for your upper back/neck pain and headache. You were given a small amount of pain medication, and IV fluids in the ER, this did seem to help relieve your symptoms. Your laboratory evaluation demonstrated that you are mildly dehydrated. You may take Tylenol 500 mg or ibuprofen 600mg q6 hrs for pain relief. Please do so until you have a tolerable level of pain with activity. Do not exceed 4000mg Tylenol, Do not exceed 3200mg ibuprofen in a 24 hour time period. Please stop taking the Flexeril as previously prescribed, as this may be increasing your feelings of tiredness. Use the Flexeril only if you believe your are having muscle spasms, as this is a muscle relaxer. You were given a prescription for a strong pain medication, hydrocodone/ acetaminophen 5/325, please take 1 tab every 6 hours as needed for pain not relieved by Tylenol or ibuprofen alone. Please note this does contain Tylenol in it, so do not take more than 4000 mg in a 24-hour time span. These medications can be addictive, so please take as few as possible to achieve adequate pain control. This med can also cause rebound headaches, Again please try to take as few of these as possible. These meds can also be quite constipating, recommend that you increase your oral fluid intake and take a stool softener like MiraLAX while taking these medications. Your prescription was electronically sent to [facility] pharmacy located near [facility], this pharmacy is only open from 12 to 4 PM today, you will need to go there during this timeframe to obtain this medication and take as prescribed. Please return to ED if your symptoms should change or worsen. - My Orders Last 24 Hours: My Active Orders 03/06/19 11:17 Peripheral IV Care [RC] . DIRECTED Sodium Chloride 0.9% [Saline Flush] 10 ml FLUSH ASDIRECTED PRN Peripheral IV Insertion Adult [OM.PC] Stat 03/06/19 11:30 Dextrose 5%-0.9% NaCl [Dextrose 5%-Normal Saline] 1,000 ml IV ASDIRECTED - Assessment/Plan Last 24 Hours: My Active Orders 03/06/19 11:17 Peripheral IV Care [RC] . DIRECTED Sodium Chloride 0.9% [Saline Flush] 10 ml FLUSH ASDIRECTED PRN Peripheral IV Insertion Adult [OM.PC] Stat 03/06/19 11:30 Dextrose 5%-0.9% NaCl [Dextrose 5%-Normal Saline] 1,000 ml IV ASDIRECTED <Liliana Bravo - Last Filed: 03/06/19 13:32> ED HPI GENERAL MEDICAL PROBLEM - General Source of Information: Reports: Patient, Old Records History Limitations: Reports: No Limitations - History of Present Illness INITIAL COMMENTS - FREE TEXT/NARRATIVE: Patient is a 33-year-old female who presents to the ED for the evaluation of continuing back and neck pain, and a headache. The patient had a vaginal delivery on Thursday by Dr. Bonilla, did receive an epidural with a subsequent blood patch after delivery. She was evaluated in the ER again this last for continuing back and neck pain, and was treated with Dilaudid and Flexeril, and was sent home with hydrocodone if needed. Patient states that she is not feeling much better, and states that actually worse than it was on . She states that she has pain in her mid shoulders, and up to the base of her skull, and she now feels as if the right side of her face is numb, and that she is having difficulties hearing out of the right ear, she states she feels this is swollen shut. The patient notes that she has a headache at the base of her skull, and this is a squeezing, burning or intense pain. She denies any fevers or chills, but states she has been having hot and cold flashes. She has nausea but no vomiting or diarrhea. She has light sensitivity , but states that sound sensitivity is worse. She does not have a history of migraines at all. She notes that the pain is much better when laying flat, and states when she sits erect, she can only do so for about a minute, and she is having to vale around the house to get things done in order to lay flat again. ED ROS GENERAL - Review of Systems Review Of Systems: See Below Constitutional: Denies: Fever, Chills HEENT: Reports: Ear Pain, Hearing Loss (reported, the patient hears me okay, and answers all questions with my voice at appropriate volume.). Denies: Eye Pain Respiratory: Denies: Shortness of Breath Cardiovascular: Denies: Chest Pain GI/Abdominal: Reports: Nausea. Denies: Abdominal Pain, Constipation, Diarrhea, Vomiting : Denies: Dysuria, Frequency, Urgency Musculoskeletal: Reports: Neck Pain (and into base of skull), Back Pain (pain btw shoulders). Denies: Arm Pain Neurological: Reports: Numbness (to right side of face) - Physical Exam Exam: See Below Exam Limited By: No Limitations General Appearance: Alert, WD/WN, No Apparent Distress Eye Exam: Bilateral Eye: EOMI, Normal Inspection, PERRL Ears: Normal External Exam, Normal Canal, Hearing Grossly Normal, Normal TMs Nose: Normal Inspection Throat/Mouth: Normal Inspection, Normal Lips, Normal Teeth, Normal Gums, Normal Oropharynx, Normal Voice, No Airway Compromise Head Exam: Atraumatic, Normocephalic Neck: Normal Inspection, Supple, Full Range of Motion, Tender Lateral Respiratory/Chest: No Respiratory Distress, Lungs Clear, Normal Breath Sounds, No Accessory Muscle Use, Chest Non-Tender Cardiovascular: Normal Peripheral Pulses, Regular Rate, Rhythm, No Murmur GI/Abdominal: Normal Bowel Sounds, Soft, Non-Tender, No Distention, No Mass Neuro Exam (Abbreviated): Alert, Oriented, Normal Cognition, Normal Gait, No Motor/Sensory Deficits, Sensory/Motor Deficit (pt reports decreased sensitivity to light touch on right side of face.) Back Exam: Normal Inspection, Full Range of Motion Extremities: Normal Inspection, Normal Capillary Refill Psychiatric: Normal Affect, Normal Mood Skin Exam: Warm, Dry, Intact, Normal Color, No Rash Course - Orders/Labs/Meds Labs: Laboratory Tests 03/06/19 03/06/19 Range/Units 12:10 12:10 WBC 6.90 (3.98-10.04) K/mm3 RBC 4.38 (3.98-5.22) M/mm3 Hgb 13.9 D (11.2-15.7) gm/dl Hct 40.1 (34.1-44.9) % MCV 91.6 (79.4-94.8) fl MCH 31.7 (25.6-32.2) pg MCHC 34.7 (32.2-35.5) g/dl RDW Std Deviation 41.5 (36.4-46.3) fL Plt Count 280 D (182-369) K/mm3 MPV 9.3 L (9.4-12.3) fl Neutrophils % (Manual) 53 (40-60) % Band Neutrophils % 0 (0-10) % Lymphocytes % (Manual) 38 (20-40) % Atypical Lymphs % 0 % Monocytes % (Manual) 8 (2-10) % Eosinophils % (Manual) 1 (0.7-5.8) % Basophils % (Manual) 0 L (0.1-1.2) Platelet Estimate Adequate RBC Morph Comment Normal Sodium 142 (136-145) mEq/L Potassium 3.5 (3.5-5.1) mEq/L Chloride 104 (98-107) mEq/L Carbon Dioxide 25 (21-32) mEq/L Anion Gap 16.5 H (5-15) BUN 9 (7-18) mg/dL Creatinine 0.9 (0.55-1.02) mg/dL Est Cr Clr Drug Dosing 88.07 mL/min Estimated GFR (MDRD) > 60 (>60) mL/min BUN/Creatinine Ratio 10.0 L (14-18) Glucose 102 (74-106) mg/dL Calcium 9.2 (8.5-10.1) mg/dL Magnesium 1.8 (1.8-2.4) mg/dl Total Bilirubin 0.4 (0.2-1.0) mg/dL AST 19 (15-37) U/L ALT 24 (14-59) U/L Alkaline Phosphatase 157 H (46-116) U/L Total Protein 8.3 H (6.4-8.2) g/dl Albumin 3.3 L (3.4-5.0) g/dl Globulin 5.0 gm/dL Albumin/Globulin Ratio 0.7 L (1-2) - Re-Assessments/Exams Free Text/Narrative Re-Assessment/Exam: 03/06/19 12:00 Patient presents to the ED for evaluation of a continuing headache, and upper shoulder and neck pain after her recent delivery. I did discuss the case with Dr. Mario, he suggest getting basic labs, CBC, CMP and a magnesium, give her some IV fluids, D5 NS, 7.5 Reglan, 10 of Dex, and 0.5 mg Dilaudid for headache relief. He notes that most patients are not eating and drinking as well as a should, and suggest she might be fluid dehydrated. We will reevaluate the patient after labs have been done and meds have been given. 03/06/19 13:19 Patient was reassessed at bedside, fluids are almost done, she was able to sit up at the side of the bed, for a few minutes without too much pain. Once the initial bag of fluids is done, will ambulate around the ER, and see how she feels. Patient notes that she has been taking the Flexeril and hydrocodone as prescribed. She has 1 tablet of hydrocodone left, and several of the Flexeril. I told her that she does not need to take the Flexeril unless she thinks there is a muscle spasm in nature. She is understanding of this. This may also be why she was feeling so sedated. I explained how this medicine works, she will no longer take this unless it is absolutely needed. I will likely get her a couple more tablets of hydrocodone to take home, but have her take Tylenol ibuprofen before hand, to see if this does not help relieve the pain rather than opioid pain medications. She is understanding of this as well. If patient is feeling better after walking around the ER, will discharge her home with general recommendations. Departure - Departure Time of Disposition: 13:25 Condition: Fair - Discharge Information *PRESCRIPTION DRUG MONITORING PROGRAM REVIEWED*: Yes *COPY OF PRESCRIPTION DRUG MONITORING REPORT IN PATIENT MATILDA: No
[2019-03-06] MEDS ORDERED: Sodium Chloride 0.9% 10 ML Syringe FLUSH PRN (11:17)
[2019-03-06] MEDS ORDERED: Dexamethasone 10 MG/ML SDV IM ONE (11:18)
[2019-03-06] MEDS ORDERED: HYDROmorphone 0.5 MG/0.5 ML Syringe IVPUSH ONE (11:19)
[2019-03-06] MEDS ORDERED: Metoclopramide 10 MG/2 ML SDV IVPUSH ONE (11:19)
[2019-03-06] MEDS ORDERED: Dextrose 5%-0.9% NaCl 1,000 ML IV SCH (11:30)
[2019-03-06] MEDS ORDERED: Dexamethasone 10 MG/ML SDV IVPUSH ONE (12:26)
== END 2019-03-06 14:18 | disposition home or self-care (01) ==
LOC: JD.ED 09:32
DX: O90.89 Other complications of the puerperium, not elsewhere classified (principal); M54.6 Pain in thoracic spine; M54.2 Cervicalgia; R51 Headache; O90.81 Anemia of the puerperium; D64.9 Anemia, unspecified; O99.285 Endocrine, nutritional and metabolic diseases complicating the puerperium; E03.9 Hypothyroidism, unspecified; Z88.2 Allergy status to sulfonamides; Z88.8 Allergy status to other drugs, medicaments and biological substances; Z79.899 Other long term (current) drug therapy
CPT/HCPCS: 36415; 80053; 83735; 85007; 85027; 96374; 96375; 99283; J1100; J1170; J2765; J7042; 99284

== ENCOUNTER 2020-01-17 20:55 | Emergency (ER) | payer BC ==
[2020-01-17 21:12] VITALS: BP 120/75; PULSE 63
[2020-01-17] MEDS ORDERED: Ketorolac 60 MG/2 ML SDV IM ONE (21:16)
--- NOTE | 2020-01-17 21:24 | EDM.PDOC ---
ED HPI GENERAL MEDICAL PROBLEM - General Chief Complaint: ENT Problem Stated Complaint: tooth pain Time Seen by Provider: 01/17/20 21:11 Source of Information: Reports: Patient, RN Notes Reviewed History Limitations: Reports: No Limitations - History of Present Illness INITIAL COMMENTS - FREE TEXT/NARRATIVE: Patient is a 34-year-old female presenting to the emergency department with complaints of left lower tooth pain. She states that symptoms began a number of weeks ago, however has been worsening in intensity over the last few days. She has a long history of dental caries. She is had all of her upper teeth pulled. She plans to contact her dentist, Dr. Fernandez, tomorrow morning to see if you build to pull the tooth. She has been using Tylenol and ibuprofen with little relief. Denies any fever, chills, nausea, or vomiting. Left Lower Tooth/Teeth Pain Score (Numeric/FACES): 10 - Related Data Allergies Allergy/AdvReac Type Severity Reaction Status Date / Time propranolol Allergy Severe Swelling Verified 01/17/20 21:04 Sulfa (Sulfonamide Allergy Severe Rash Verified 01/17/20 21:04 Antibiotics) Home Meds: Home Meds Levothyroxine 100 mcg PO DAILY 01/29/17 [History] Acetaminophen/Codeine [Tylenol with Codeine No.3 300MG/30MG] 1 tab PO Q4H PRN #10 tab 01/17/20 [Rx] Penicillin V Potassium 500 mg PO Q6HR 10 Days #40 tab 01/17/20 [Rx] Past Medical History - Past Health History Medical/Surgical History: Denies Medical/Surgical History Gastrointestinal History: Reports: Chronic Diarrhea Other Gastrointestinal History: c/o yellow liquid stools for past 2-3 months. 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: Neurological History: Reports: Headaches, Chronic Psychiatric History: Reports: Addiction, Anxiety, Depression Endocrine/Metabolic History: Reports: Hypothyroidism Other Endocrine/Metabolic History: had thryoid removed Hematologic History: Reports: Anemia - Infectious Disease History Infectious Disease History: Reports: Chicken Pox - Past Surgical History Other HEENT Surgeries/Procedures: upper teeth extracted and wears dentures Female Surgical History: Reports: Oophorectomy Endocrine Surgical History: Reports: Thyroidectomy Social & Family History - Family History Family Medical History: Noncontributory - Tobacco Use Tobacco Use Status *Q: Current Every Day Tobacco User Years of Tobacco use: 12 Packs/Tins Daily: 0.5 - Caffeine Use Caffeine Use: Reports: Soda - Recreational Drug Use Other Recreational Drug Type: medical marijuana - Living Situation & Occupation Living situation: Reports: , with Spouse, with Family (2 kids) 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 ED EXAM, ENT - Physical Exam Exam: See Below General Appearance: Alert, WD/WN, No Apparent Distress Mouth/Throat: Normal Gums, Normal Lips, Normal Oropharynx, Dental Pain, Other (Dental caries with decay and small area of tooth fracture to tooth #18. No erythema of the gums or external jaw swelling.) Respiratory/Chest: No Respiratory Distress, Lungs Clear, Normal Breath Sounds, No Accessory Muscle Use, Chest Non-Tender Cardiovascular: Normal Peripheral Pulses, Regular Rate, Rhythm, No Edema, No Gallop, No JVD, No Murmur, No Rub GI/Abdominal: Normal Bowel Sounds, Soft, Non-Tender, No Organomegaly, No Distention, No Abnormal Bruit, No Mass Neurological: Alert, Oriented, CN II-XII Intact, Normal Cognition, Normal Gait, Normal Reflexes, No Motor/Sensory Deficits Psychiatric: Normal Affect, Normal Mood Course - Vital Signs Last Recorded V/S: Last Vital Signs Temp 97.8 F 01/17/20 21:08 Pulse 63 01/17/20 21:08 Resp BP 120/75 01/17/20 21:08 Pulse Ox 100 01/17/20 21:08 - Orders/Labs/Meds Meds: Medications Discontinued Medications Generic Name Dose Route Start Last Admin Trade Name Nielsq PRN Reason Stop Dose Admin Ketorolac Tromethamine 60 mg 01/17/20 21:16 Toradol IM 01/17/20 21:17 ONETIME ONE - Re-Assessments/Exams Free Text/Narrative Re-Assessment/Exam: 01/17/20 21:20 Is a 34-year-old female presenting to the emergency department with complaints of pain to tooth #18. On exam, there is obvious dental decay and possible small fracture at the end of the tooth. There is no redness or erythema of the gums and no external swelling. We will give her a shot of Toradol in the emergency department. I will send a prescription for Tylenol with codeine and penicillin V. Recommend follow-up with her dentist tomorrow. Discharge instructions as documented. Departure - Departure Time of Disposition: 21:21 Disposition: Home, Self-Care 01 Condition: Good Clinical Impression: Dental caries - Discharge Information *PRESCRIPTION DRUG MONITORING PROGRAM REVIEWED*: Yes *COPY OF PRESCRIPTION DRUG MONITORING REPORT IN PATIENT MATILDA: No Prescriptions: Penicillin V Potassium 500 mg PO Q6HR 10 Days #40 tab Acetaminophen/Codeine [Tylenol with Codeine No.3 300MG/30MG] 1 tab PO Q4H PRN #1 0 tab PRN Reason: Pain/Fever Additional Instructions: You were seen in the emergency department today for dental pain in your left lower mouth. On exam, the tooth that is causing the issues is obviously decayed. While in the ER, you received an injection of Toradol for pain. A prescription for Tylenol with codeine as well as penicillin V has been sent to [place] [facility] in [place] twice. Recommend that you take ibuprofen routinely. For pain not relieved by ibuprofen, you may take 1 Tylenol with codeine every 4 hours. Follow-up with your dentist tomorrow as planned. Return to ER for any new or worsening symptoms of concern. Sepsis Event Note (ED) - Evaluation Sepsis Screening Result: No Definite Risk - Focused Exam Vital Signs: Vital Signs Temp Pulse BP Pulse Ox 01/17/20 21:08 97.8 F 63 120/75 100
== END 2020-01-17 21:35 | disposition home or self-care (01) ==
LOC: JD.ED 20:55
DX: K02.9 Dental caries, unspecified (principal); E03.9 Hypothyroidism, unspecified; F17.210 Nicotine dependence, cigarettes, uncomplicated; Z88.2 Allergy status to sulfonamides; Z88.8 Allergy status to other drugs, medicaments and biological substances; Z79.899 Other long term (current) drug therapy
CPT/HCPCS: 96372; 99282; J1885; 99283

== ENCOUNTER 2020-01-20 15:25 | Emergency (ER) | payer BC ==
[2020-01-20 15:57] VITALS: BP 125/93; PULSE 49
--- NOTE | 2020-01-20 16:35 | EDM.PDOC ---
ED HPI GENERAL MEDICAL PROBLEM - General Chief Complaint: General Stated Complaint: DENTAL COMPLAINT Time Seen by Provider: 01/20/20 16:02 Source of Information: Reports: Patient History Limitations: Reports: No Limitations - History of Present Illness INITIAL COMMENTS - FREE TEXT/NARRATIVE: Patient is a 34 year old female presenting the ER with c/o continued tooth pain in her left lower mouth. She was seen in this ER 3 days ago for the same c/o and started on Veetids and Tylenol #3. She states that she is not able to see her dentist until Thursday morning and that she has run out of the pain medications. She has been using tylenol and ibuprofen with no relief. Denies fever, chills, nausea, or vomiting. Jaw Pain Score (Numeric/FACES): 10 - Related Data Allergies Allergy/AdvReac Type Severity Reaction Status Date / Time propranolol Allergy Severe Swelling Verified 01/20/20 16:00 Sulfa (Sulfonamide Allergy Severe Rash Verified 01/20/20 16:00 Antibiotics) Home Meds: Home Meds Levothyroxine 100 mcg PO DAILY 01/29/17 [History] Acetaminophen/Codeine [Tylenol with Codeine No.3 300MG/30MG] 1 tab PO Q4H PRN #10 tab 01/17/20 [Rx] Penicillin V Potassium 500 mg PO Q6HR 10 Days #40 tab 01/17/20 [Rx] Acetaminophen/Codeine [Tylenol with Codeine No.3 300MG/30MG] 1 tab PO Q4H PRN #15 tab 01/20/20 [Rx] Past Medical History - Past Health History Medical/Surgical History: Denies Medical/Surgical History Gastrointestinal History: Reports: Chronic Diarrhea Other Gastrointestinal History: c/o yellow liquid stools for past 2-3 months. 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: Neurological History: Reports: Headaches, Chronic Psychiatric History: Reports: Addiction, Anxiety, Depression Other Psychiatric History: eating disorder Endocrine/Metabolic History: Reports: Hypothyroidism Other Endocrine/Metabolic History: had thryoid removed Hematologic History: Reports: Anemia - Infectious Disease History Infectious Disease History: Reports: Chicken Pox - Past Surgical History Other HEENT Surgeries/Procedures: upper teeth extracted and wears dentures Female Surgical History: Reports: Oophorectomy Endocrine Surgical History: Reports: Thyroidectomy Social & Family History - Family History Family Medical History: Noncontributory - Tobacco Use Years of Tobacco use: 10 Packs/Tins Daily: 0.5 - Caffeine Use Caffeine Use: Reports: Soda - Recreational Drug Use Recreational Drug Type: Reports: Marijuana/Hashish - Living Situation & Occupation Living situation: Reports: , with Spouse, with Family (2 kids) 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 ED EXAM, GENERAL - Physical Exam Exam: See Below General Appearance: Alert, WD/WN, No Apparent Distress Throat/Mouth: Normal Inspection, Normal Lips, Normal Gums, Normal Oropharynx, Normal Voice, No Airway Compromise, Other (Dental carry with obvious decay to tooth #18. Small area of fracture to the lateral aspect of the tooth as well. No redness or swelling of the gums or external jaw.) Course - Vital Signs Last Recorded V/S: Last Vital Signs Temp 98.2 F 01/20/20 15:55 Pulse 49 L 01/20/20 15:55 Resp 16 01/20/20 15:55 BP 125/93 H 01/20/20 15:55 Pulse Ox 100 01/20/20 15:55 - Orders/Labs/Meds Orders: Active Orders 24 hr Category Date Time Status Acetaminophen/Codeine [Tylenol with Codeine No.3 300MG/ Med 01/20/20 16:37 Once 30MG] 1 tab PO ONETIME ONE Ketorolac [Toradol] Med 01/20/20 16:37 Once 60 mg IM ONETIME ONE Departure - Departure Time of Disposition: 16:39 Disposition: Home, Self-Care 01 Condition: Good Clinical Impression: Dental caries - Discharge Information *PRESCRIPTION DRUG MONITORING PROGRAM REVIEWED*: Yes *COPY OF PRESCRIPTION DRUG MONITORING REPORT IN PATIENT MATILDA: No Prescriptions: Acetaminophen/Codeine [Tylenol with Codeine No.3 300MG/30MG] 1 tab PO Q4H PRN #15 tab PRN Reason: Pain Forms: ED Department Discharge Additional Instructions: You were seen in the emergency department today for ongoing tooth pain. While in the ER, you received an injection of Toradol and a dose of Tylenol with codeine. A prescription for Tylenol with codeine has been sent to [place] pharmacy in [place] twice. Take ibuprofen routinely and then use these medications as needed for pain not relieved by ibuprofen. You taking the penicillin that was previously prescribed. Keep your appointment as currently scheduled with your dentist on Thursday morning. Return to ER as needed. Sepsis Event Note (ED) - Evaluation Sepsis Screening Result: No Definite Risk - Focused Exam Vital Signs: Vital Signs Temp Pulse Resp BP Pulse Ox 01/20/20 15:55 98.2 F 49 L 16 125/93 H 100 - My Orders Last 24 Hours: My Active Orders 01/20/20 16:37 Acetaminophen/Codeine [Tylenol with Codeine No.3 300MG/30MG] 1 tab PO ONETIME ONE Ketorolac [Toradol] 60 mg IM ONETIME ONE - Assessment/Plan Last 24 Hours: My Active Orders 01/20/20 16:37 Acetaminophen/Codeine [Tylenol with Codeine No.3 300MG/30MG] 1 tab PO ONETIME ONE Ketorolac [Toradol] 60 mg IM ONETIME ONE
[2020-01-20] MEDS ORDERED: Acetaminophen/Codeine 300-30 MG Tab PO ONE (16:37)
[2020-01-20] MEDS ORDERED: Ketorolac 60 MG/2 ML SDV IM ONE (16:37)
== END 2020-01-20 17:29 | disposition home or self-care (01) ==
LOC: JD.ED 15:25
DX: K02.9 Dental caries, unspecified (principal); F17.210 Nicotine dependence, cigarettes, uncomplicated; E03.9 Hypothyroidism, unspecified; Z88.8 Allergy status to other drugs, medicaments and biological substances; Z88.2 Allergy status to sulfonamides; Z79.899 Other long term (current) drug therapy
CPT/HCPCS: 96372; 99282; A9270; J1885; 99283

== ENCOUNTER 2020-01-27 17:47 | Emergency (ER) | payer BC ==
[2020-01-27 18:03] VITALS: BP 137/77; PULSE 65
--- NOTE | 2020-01-27 18:24 | EDM.PDOC ---
ED HPI GENERAL MEDICAL PROBLEM - General Chief Complaint: ENT Problem Stated Complaint: DENTAL COMPLAINT Time Seen by Provider: 01/27/20 18:09 Source of Information: Reports: Patient, RN Notes Reviewed History Limitations: Reports: No Limitations - History of Present Illness INITIAL COMMENTS - FREE TEXT/NARRATIVE: Patient is a 34-year-old female who presents to the ED for the evaluation of an ongoing dental complaint. She was seen in this ER multiple times last week for issues with her teeth. She states that she had more teeth pulled on January 22, and states that her 4 remaining teeth on the bottom front portion of her mouth are causing her quite a bit of pain. She was taking medications from her dental provider, that were Percocet 's. She states that she was given Tylenol with codeine by another provider in this ER last week along with antibiotics. She finished antibiotics and has subsequently run out of pain medications. She is not having any fevers or chills, nausea/vomiting/diarrhea, she was using 4 tablets ibuprofen this morning, along with 2 tablets in the afternoon and 2 tablets of Aleve, she states this kind of takes the edge off but does not take the pain away. - Related Data Allergies Allergy/AdvReac Type Severity Reaction Status Date / Time propranolol Allergy Severe Swelling Verified 01/20/20 16:00 Sulfa (Sulfonamide Allergy Severe Rash Verified 01/20/20 16:00 Antibiotics) Home Meds: Home Meds Levothyroxine 100 mcg PO DAILY 01/29/17 [History] Acetaminophen/Codeine [Tylenol with Codeine No.3 300MG/30MG] 1 tab PO Q4H PRN #10 tab 01/17/20 [Rx] Penicillin V Potassium 500 mg PO Q6HR 10 Days #40 tab 01/17/20 [Rx] Acetaminophen/Codeine [Tylenol with Codeine No.3 300MG/30MG] 1 tab PO Q4H PRN #15 tab 01/27/20 [Rx] Naproxen [Naprosyn] 500 mg PO Q12HR #14 tab 01/27/20 [Rx] Past Medical History - Past Health History Medical/Surgical History: Denies Medical/Surgical History Gastrointestinal History: Reports: Chronic Diarrhea Other Gastrointestinal History: c/o yellow liquid stools for past 2-3 months. 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 History: Reports: Headaches, Chronic Psychiatric History: Reports: Addiction, Anxiety, Depression Other Psychiatric History: eating disorder Endocrine/Metabolic History: Reports: Hypothyroidism Other Endocrine/Metabolic History: had thryoid removed Hematologic History: Reports: Anemia - Infectious Disease History Infectious Disease History: Reports: Chicken Pox - Past Surgical History Other HEENT Surgeries/Procedures: upper teeth extracted and wears dentures Female Surgical History: Reports: Oophorectomy Endocrine Surgical History: Reports: Thyroidectomy Social & Family History - Family History Family Medical History: Noncontributory - Tobacco Use Years of Tobacco use: 15 Packs/Tins Daily: 1 - Caffeine Use Caffeine Use: Reports: Soda - Living Situation & Occupation Living situation: Reports: , with Spouse, with Family (2 kids) 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 ED EXAM, ENT - Physical Exam Exam: See Below Exam Limited By: No Limitations General Appearance: Alert, WD/WN, No Apparent Distress Eye Exam: Bilateral Eye: EOMI, Normal Inspection, PERRL Mouth/Throat: Normal Inspection, Normal Gums, Normal Lips, Normal Oropharynx, Dental Pain (along the 4 bottom front remaining teeth. the areas that she had the teeth pulled do appear to be healing well; and there is no sign of bacterial infection.) Head: Atraumatic, Normocephalic Neck: Normal Inspection Respiratory/Chest: No Respiratory Distress, Lungs Clear, Normal Breath Sounds Cardiovascular: Normal Peripheral Pulses, Regular Rate, Rhythm, No Murmur GI/Abdominal: Normal Bowel Sounds, Soft, Non-Tender, No Distention, No Mass Extremities: Normal Inspection, Normal Capillary Refill Neurological: Alert, Oriented, Normal Cognition, No Motor/Sensory Deficits Psychiatric: Normal Affect, Normal Mood Skin: Warm, Dry, Intact, Normal Color, No Rash Course - Vital Signs Last Recorded V/S: Last Vital Signs Temp 97.7 F 01/27/20 17:59 Pulse 65 01/27/20 17:59 Resp 16 01/27/20 17:59 BP 137/77 01/27/20 17:59 Pulse Ox 100 01/27/20 17:59 - Re-Assessments/Exams Free Text/Narrative Re-Assessment/Exam: 01/27/20 18:22 Patient presents to the ED for ongoing dental pain. She is just finished up a prescription for antibiotics, no obvious sign of infection. She will be given a prescription of Naprosyn, along with a few tablets of Tylenol #3 to get through until Thursday so she can be evaluated by her dental provider. Departure - Departure Time of Disposition: 18:23 Disposition: Home, Self-Care 01 Condition: Good Clinical Impression: Pain, dental - Discharge Information *PRESCRIPTION DRUG MONITORING PROGRAM REVIEWED*: Yes *COPY OF PRESCRIPTION DRUG MONITORING REPORT IN PATIENT MATILDA: No Prescriptions: Naproxen [Naprosyn] 500 mg PO Q12HR #14 tab Acetaminophen/Codeine [Tylenol with Codeine No.3 300MG/30MG] 1 tab PO Q4H PRN #15 tab PRN Reason: Pain Referrals: Rory Bonilla MD [Primary Care Provider] - Additional Instructions: You have been evaluated in the ED for your dental pain. You were given a prescription for Naprosyn, Please take 1 tab every 12 hours for pain relief. You were also given a prescription for a strong pain medication, Tylenol #3, please take 1 tab every 4 hours as needed for pain not relieved by Tylenol or ibuprofen alone. Please note this medication does contain Tylenol in it, so do not take more than 4000 mg in a 24-hour time span. These medications can be addictive, so please take as few as possible to achieve adequate pain control. These meds can also be quite constipating, recommend that you increase your oral fluid intake and take a stool softener like MiraLAX while taking these medications. Do not drive while taking this medication. You may use hot pack/ ice packs to the affected area as tolerated in 15-20 minute intervals. You will ultimately need to find a dentist to provide definitive management of your dental pain. Please follow up with your provider this coming Thursday as previously discussed. Please return to the ED if your symptoms change or worsen. Sepsis Event Note (ED) - Evaluation Sepsis Screening Result: No Definite Risk - Focused Exam Vital Signs: Vital Signs Temp Pulse Resp BP Pulse Ox 01/27/20 17:59 97.7 F 65 16 137/77 100
== END 2020-01-27 18:41 | disposition home or self-care (01) ==
LOC: JD.ED 17:47
DX: K08.89 Other specified disorders of teeth and supporting structures (principal); E03.9 Hypothyroidism, unspecified; F17.210 Nicotine dependence, cigarettes, uncomplicated; Z88.8 Allergy status to other drugs, medicaments and biological substances; Z88.2 Allergy status to sulfonamides; Z79.899 Other long term (current) drug therapy
CPT/HCPCS: 99282

== ENCOUNTER 2020-08-22 07:45 | Emergency (ER) | payer BC ==
[2020-08-22 08:09] VITALS: BP 99/65; PULSE 82
--- NOTE | 2020-08-22 08:09 | EDM.PDOC ---
ED HPI GENERAL MEDICAL PROBLEM - General Chief Complaint: Flank Pain Stated Complaint: BACK PAIN Time Seen by Provider: 08/22/20 08:04 - History of Present Illness INITIAL COMMENTS - FREE TEXT/NARRATIVE: 34-year-old female presents the emergency room with back pain. This back pain has been going on for 7 days but really getting worse over the last 4 days. Patient has no pain extending into her legs however she notices that she has a pain in her back when she lifts her right leg up. However if she lifts the leg up using her arms she does not have this pain. The pain seems to be worse on the right. She has had no loss of bowel or bladder control no fevers or chills. She does not have a problem with chronic back issues. Right Flank Pain Score (Numeric/FACES): 10 - Related Data Allergies Allergy/AdvReac Type Severity Reaction Status Date / Time propranolol Allergy Severe Swelling Verified 08/22/20 08:02 Sulfa (Sulfonamide Allergy Severe Rash Verified 08/22/20 08:02 Antibiotics) Home Meds: Home Meds Levothyroxine 100 mcg PO DAILY 01/29/17 [History] Cefdinir 300 mg PO BID #14 capsule 08/22/20 [Rx] Past Medical History - Past Health History Medical/Surgical History: Denies Medical/Surgical History Gastrointestinal History: Reports: Chronic Diarrhea Other Gastrointestinal History: c/o yellow liquid stools for past 2-3 months. 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: Neurological History: Reports: Headaches, Chronic Psychiatric History: Reports: Addiction, Anxiety, Depression Other Psychiatric History: eating disorder Endocrine/Metabolic History: Reports: Hypothyroidism Other Endocrine/Metabolic History: had thryoid removed Hematologic History: Reports: Anemia - Infectious Disease History Infectious Disease History: Reports: Chicken Pox - Past Surgical History Other HEENT Surgeries/Procedures: upper teeth extracted and wears dentures Female Surgical History: Reports: Oophorectomy Endocrine Surgical History: Reports: Thyroidectomy Social & Family History - Family History Family Medical History: No Pertinent Family History - Caffeine Use Caffeine Use: Reports: Soda - Living Situation & Occupation Living situation: Reports: , with Spouse, with Family (2 kids) 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 Denies: Dysuria, Flank Pain, Frequency Musculoskeletal: Reports: Back Pain Neurological: Reports: No Symptoms ED EXAM, GENERAL - Physical Exam Exam: See Below Exam Limited By: No Limitations General Appearance: Alert, No Apparent Distress Head: Atraumatic, Normocephalic Neck: Normal Inspection, Supple, Non-Tender, Full Range of Motion. No: Tender Midline Respiratory/Chest: No Respiratory Distress, Lungs Clear, Normal Breath Sounds Cardiovascular: Regular Rate, Rhythm, No Edema, No Murmur GI/Abdominal: Normal Bowel Sounds, Soft, Non-Tender Back Exam: Normal Inspection, Muscle Spasm (Right lumbar and lower thoracic area), Other (Distracted straight leg raise is unremarkable). No: Paraspinal Tenderness, Vertebral Tenderness Course - Vital Signs Last Recorded V/S: Last Vital Signs Temp 36.0 C L 08/22/20 08:06 Pulse 82 08/22/20 08:06 Resp 18 08/22/20 08:06 BP 99/65 08/22/20 08:06 Pulse Ox 100 08/22/20 08:06 - Orders/Labs/Meds Orders: Active Orders 24 hr Category Date Time Status CULTURE URINE [MREF] Stat Lab 08/22/20 08:20 Received Labs: Laboratory Tests 08/22/20 Range/Units 08:20 Urine Color Yellow (Yellow) Urine Appearance Cloudy H (Clear) Urine pH 6.5 (5.0-8.0) Ur Specific [place] 1.025 (1.005-1.030) Urine Protein 3+ H (Negative) Urine Glucose (UA) Negative (Negative) Urine Ketones Negative (Negative) Urine Occult Blood 2+ H (Negative) Urine Nitrite Positive H (Negative) Urine Bilirubin Negative (Negative) Urine Urobilinogen 1.0 (0.2-1.0) Ur Leukocyte Esterase 1+ H (Negative) Urine RBC Too numerous to cnt H (0-5) /hpf Urine WBC Too numerous to cnt H (0-5) /hpf Ur Epithelial Cells 20-30 H (0-5) /hpf Urine Bacteria Many H (FEW) /hpf Urine Mucus Moderate H (FEW) /hpf - Re-Assessments/Exams Free Text/Narrative Re-Assessment/Exam: 08/22/20 09:07 Urinalysis is suggestive of a UTI with positive leukocyte esterase and nitrates unfortunately the microscopic was also suggestive that there is some degree of contamination. Discussed the findings with the patient we will start her on antibiotics. Of also offered for her to continue ibuprofen or Naprosyn but she does not believe this is muscle skeletal in origin. Departure - Departure Time of Disposition: 09:08 Disposition: Home, Self-Care 01 Clinical Impression: Urinary tract infection Low back pain Qualifiers: Chronicity: unspecified - Discharge Information Referrals: PCP,None [Primary Care Provider] - Forms: ED Department Discharge Additional Instructions: Return to the emergency room with any questions problems or worsening symptoms. Follow-up with your regular healthcare provider 3 to 4 days after you finish the antibiotics. If you do not have a regular healthcare provider you follow-up with the hospital clinic [phone] You have been started on an antibiotic this was sent to [facility]. Take 1 twice daily until all gone. Push lots of fluids. Consider ibuprofen or naproxen as needed for discomfort. Sepsis Event Note (ED) - Focused Exam Vital Signs: Vital Signs Temp Pulse Resp BP Pulse Ox 08/22/20 08:06 36.0 C L 82 18 99/65 100 - My Orders Last 24 Hours: My Active Orders 08/22/20 08:20 CULTURE URINE [MREF] Stat - Assessment/Plan Last 24 Hours: My Active Orders 08/22/20 08:20 CULTURE URINE [MREF] Stat
== END 2020-08-22 09:26 | disposition home or self-care (01) ==
LOC: JD.ED 07:45
DX: N39.0 Urinary tract infection, site not specified (principal); M54.5 Low back pain; M54.6 Pain in thoracic spine; E03.9 Hypothyroidism, unspecified; Z88.8 Allergy status to other drugs, medicaments and biological substances; Z88.2 Allergy status to sulfonamides; Z79.899 Other long term (current) drug therapy
CPT/HCPCS: 81001; 87086; 87186; 99283

== ENCOUNTER 2020-09-14 13:07 | Emergency (ER) | payer BC ==
[2020-09-14 13:13] VITALS: BP 128/91; PULSE 75
[2020-09-14] MEDS ORDERED: Lidocaine 2% Jelly 10 ML Urojet MUCMEM ONE ×2 (13:19→19:18)
--- NOTE | 2020-09-14 13:34 | EDM.PDOC ---
ED HPI GENERAL MEDICAL PROBLEM - General Chief Complaint: Abdominal Pain Stated Complaint: [facility] Time Seen by Provider: 09/14/20 13:15 Source of Information: Reports: Patient, RN Notes Reviewed History Limitations: Reports: No Limitations - History of Present Illness INITIAL COMMENTS - FREE TEXT/NARRATIVE: Patient is a 34-year-old female who presents to the ER by [facility] for her bowel issues. Notes that she has been having to have a bowel movement for the last 2 days, and she has been on and off the toilet throughout the night, and has been sitting on her toilet since around 2 AM this morning. States that she feels a hard ball of stool come out, but then it does not passed through her rectum. Notes that her rectum is pretty tender, so she is not able to get the bowel movement out like she should. She is not having any rectal bleeding, or any sort of vaginal bleeding, further denies any sick symptoms like fevers or chills, cough/shortness breath, nausea/vomiting/diarrhea. Patient's not tried any medications to help soften the stool. Patient states that she does have issues with constipation from time to time, but does not think she is taking anything recently that should have caused constipation. Rectal Pain Score (Numeric/FACES): 4 - Related Data Allergies Allergy/AdvReac Type Severity Reaction Status Date / Time propranolol Allergy Severe Swelling Verified 09/14/20 13:13 Sulfa (Sulfonamide Allergy Severe Rash Verified 09/14/20 13:13 Antibiotics) Home Meds: Home Meds Levothyroxine 175 mcg PO DAILY 01/29/17 [History] Past Medical History 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, Recurrent INFORMATION LEAD History: Reports: Neurological History: Reports: Headaches, Chronic Psychiatric History: Reports: Addiction, Anxiety, Depression Other Psychiatric History: eating disorder Endocrine/Metabolic History: Reports: Hypothyroidism Other Endocrine/Metabolic History: had thryoid removed Hematologic History: Reports: Anemia - Infectious Disease History Infectious Disease History: Reports: Chicken Pox - Past Surgical History HEENT Surgical History: Reports: Other (See Below) Other HEENT Surgeries/Procedures: upper teeth extracted and wears dentures; thyroidectomy Female Surgical History: Reports: Oophorectomy Other Female Surgeries/Procedures: right ovary removal Endocrine Surgical History: Reports: Thyroidectomy Social & Family History - Family History Family Medical History: No Pertinent Family History : Reports: Pyelonephritis, UTI, Recurrent - Tobacco Use Tobacco Use Status *Q: Current Every Day Tobacco User Years of Tobacco use: 10 Packs/Tins Daily: 0.4 - Caffeine Use Caffeine Use: Reports: Energy Drinks - Recreational Drug Use Recreational Drug Use: No - Living Situation & Occupation Living situation: Reports: , with Spouse, with Family (2 kids) 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 ED EXAM, GI/ABD - Physical Exam Exam: See Below Exam Limited By: No Limitations General Appearance: Alert, WD/WN, No Apparent Distress Throat/Mouth: Normal Inspection, Normal Lips, Normal Teeth, Normal Gums, Normal Oropharynx, Normal Voice, No Airway Compromise Head: Atraumatic, Normocephalic Neck: Normal Inspection Respiratory/Chest: No Respiratory Distress, Lungs Clear, Normal Breath Sounds, No Accessory Muscle Use, Chest Non-Tender Cardiovascular: Normal Peripheral Pulses, Regular Rate, Rhythm, No Edema GI/Abdominal Exam: Normal Bowel Sounds, Soft, Non-Tender, No Distention, No Mass (Female) Exam: Deferred Rectal (Female) Exam: Normal Exam, Tenderness (light palpation of the rectum does provide the patient some pain/tenderness). No: Hemorrhoids, Rectal Fissure Extremities: Normal Inspection, Normal Capillary Refill Neurological: Alert, Oriented, Normal Cognition, No Motor/Sensory Deficits Psychiatric: Normal Affect, Normal Mood Skin Exam: Warm, Dry, Intact, Normal Color, No Rash Course - Vital Signs Last Recorded V/S: Last Vital Signs Temp 97.0 F 09/14/20 13:12 Pulse 75 09/14/20 13:12 Resp 20 09/14/20 13:12 BP 128/91 H 09/14/20 13:12 Pulse Ox 100 09/14/20 13:12 - Orders/Labs/Meds Orders: Active Orders 24 hr Category Date Time Status Enema [RC] ASDIRECTED Care 09/14/20 13:20 Active Meds: Medications Discontinued Medications Generic Name Dose Route Start Last Admin Trade Name Freq PRN Reason Stop Dose Admin Lidocaine HCl 10 ml 09/14/20 13:19 09/14/20 13:37 Lidocaine 2% Jelly 10 Ml Urojet MUCMEM 09/14/20 13:20 10 ml ONETIME ONE Administration Lidocaine HCl 10 ml 09/14/20 19:18 09/14/20 19:22 Lidocaine 2% Jelly 10 Ml Urojet MUCMEM 09/14/20 19:19 10 ml ONETIME ONE Administration Lorazepam 1 mg 09/14/20 14:26 09/14/20 14:36 Lorazepam 1 Mg Tab PO 09/14/20 14:27 1 mg ONETIME ONE Administration Magnesium Citrate 296 ml 09/14/20 15:58 09/14/20 17:23 Magnesium Citrate Solution 296 Ml Bottle PO 09/14/20 15:59 296 ml ONETIME ONE Administration - Re-Assessments/Exams Free Text/Narrative Re-Assessment/Exam: 09/14/20 13:33 Patient presents to the ER for the evaluation of her constipation, we will try a Urojet initially, instilled into the rectum to try to help facilitate a bowel movement, if this does not help provide bowel movement we will go ahead and try an enema as well to help facilitate a bowel movement. 09/14/20 14:31 Patient has been trying to have a BM after the Urojet was instilled however she is still unsuccessful, nursing staff will instill an enema for further management. Patient has been increasingly anxious in the ER, we will also give her 1 mg p.o. Ativan for ongoing management. 09/14/20 15:57 The patient has not had much luck at this time yet have ordered KUB x-ray for evaluation of stool pattern. Official radiology read is pending however she does appear to have a moderate stool burden throughout the entire colon, most on the left side of the colon as well. There does appear to be some fecal matter within the rectal vault. We will go ahead and give her magnesium citrate as well for ongoing management. 09/14/20 19:31 She has been able to drink all of the magnesium citrate however she states is still very painful to try to defecate. We will go ahead and repeat the Urojet instilled into the rectum for management. Departure - Departure Time of Disposition: 15:00 Disposition: Home, Self-Care 01 Condition: Good Clinical Impression: Constipated Qualifiers: Constipation type: other constipation type Qualified Code(s): K59.09 - Other constipation - Discharge Information *PRESCRIPTION DRUG MONITORING PROGRAM REVIEWED*: No *COPY OF PRESCRIPTION DRUG MONITORING REPORT IN PATIENT MATILDA: No Instructions: Constipation, Adult, [id number] Referrals: PCP,None [Primary Care Provider] - Forms: ED Department Discharge Additional Instructions: You have been evaluated in the ED for constipation. You had labs done at this visit along with abdomen x-rays, these did demonstrate that you are constipated. You have been given a bottle of magnesium citrate, you did start this medication in the ER, to hopefully provide a bowel movement. Please note that you will have some mild abdomen cramping while using this medication, and you may have some looser stools towards the end of use of this medication. You may also continue to use fleets enemas, or suppositories to help provide a bowel movement. Increase your oral fluid intake to help facilitate a bowel mo vement. Highly recommend that you start using a stool softener in your daily routine like Colace/Dulcolax, or MiraLAX, to help keep your bowels soft, and to help prevent further constipation issues. Please return to the ED if your symptoms should change or worsen. Sepsis Event Note (ED) - Evaluation Sepsis Screening Result: No Definite Risk - Focused Exam Vital Signs: Vital Signs Temp Pulse Resp BP Pulse Ox 09/14/20 13:12 97.0 F 75 20 128/91 H 100 - My Orders Last 24 Hours: My Active Orders 09/14/20 13:20 Enema [RC] ASDIRECTED - Assessment/Plan Last 24 Hours: My Active Orders 09/14/20 13:20 Enema [RC] ASDIRECTED
[2020-09-14] MEDS ORDERED: LORazepam 1 MG Tab PO ONE (14:26)
[2020-09-14] MEDS ORDERED: Magnesium Citrate Solution 296 ML Bottle PO ONE (15:58)
--- NOTE | 2020-09-14 17:13 | CR ---
Abdomen: Supine view of the abdomen was obtained. Comparison: No prior abdominal imaging is available. Bowel gas pattern appears normal. No abnormal calcifications or soft tissue abnormality is seen. Bony structures appear within normal limits for the patient's age. Impression: 1. Nothing acute is seen on supine abdominal x-ray. Diagnostic code #1
== END 2020-09-14 21:34 | disposition home or self-care (01) ==
LOC: JD.ED 13:07
DX: K59.09 Other constipation (principal); E03.9 Hypothyroidism, unspecified; Z72.0 Tobacco use; Z88.2 Allergy status to sulfonamides; Z88.4 Allergy status to anesthetic agent
CPT/HCPCS: 74018; 99284; A9270; 99283

== ENCOUNTER 2020-11-17 12:14 | Emergency (ER) | payer BC ==
--- NOTE | 2020-11-17 13:23 | EDM.PDOCBH ---
ED HPI GENERAL MEDICAL PROBLEM - General Chief Complaint: Behavioral/Psych Stated Complaint: MENTAL HEALTH EVAL Time Seen by Provider: 11/17/20 13:06 Source of Information: Reports: Patient, RN Notes Reviewed History Limitations: Reports: No Limitations - History of Present Illness INITIAL COMMENTS - FREE TEXT/NARRATIVE: Patient is a 35-year-old female who presents to the ER with police officers for a mental health evaluation. Patient states she has been having quite a few issues with her estranged /ex, with him not letting her see her children. She was supposed to have them yesterday, and he declined for her to get them, and she called again this morning to see if she could get them, and he again is keeping him from her from what she is telling me. She states that around 11, she took 8 or 9 of her 0.1 mg clonidine tablets, because she just "exhausted" and just wanted to sleep. She did tell her estranged significant other this, and he called the police with concerns about her being suicidal. When I talk with the patient, she states that yes she would like to sleep, but she does not want to end her life, because she knows that her children need her. She is not hearing things that are not there, not seeing things that are not there, she denies any sick-like symptoms fevers or chills, cough or shortness of breath, nausea/vomiting/diarrhea. Patient is able to converse with me, but is somewhat sleepy. The patient's vitals are stable, her blood pressure was mildly low at time of triage, 98/64, and her heart rate was 53 bpm. - Related Data Allergies Allergy/AdvReac Type Severity Reaction Status Date / Time propranolol Allergy Severe Swelling Verified 11/17/20 12:58 Sulfa (Sulfonamide Allergy Severe Rash Verified 11/17/20 12:58 Antibiotics) Home Meds: Home Meds Levothyroxine 175 mcg PO DAILY 01/29/17 [History] cloNIDine [Catapres] 0.1 mg PO BEDTIME 11/17/20 [History] Past Medical History Gastrointestinal History: Reports: Chronic Diarrhea Other Gastrointestinal History: c/o yellow liquid stools for past 2-3 months. 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: Neurological History: Reports: Headaches, Chronic Psychiatric History: Reports: Addiction, Anxiety, Depression Other Psychiatric History: eating disorder Endocrine/Metabolic History: Reports: Hypothyroidism Other Endocrine/Metabolic History: had thryoid removed Hematologic History: Reports: Anemia - Infectious Disease History Infectious Disease History: Reports: Chicken Pox - Past Surgical History HEENT Surgical History: Reports: Other (See Below) Other HEENT Surgeries/Procedures: upper teeth extracted and wears dentures Female Surgical History: Reports: Oophorectomy Other Female Surgeries/Procedures: right ovary removal Endocrine Surgical History: Reports: Thyroidectomy Social & Family History - Family History Family Medical History: No Pertinent Family History : Reports: Pyelonephritis, UTI, Recurrent - Tobacco Use Tobacco Use Status *Q: Current Every Day Tobacco User Years of Tobacco use: 10 Packs/Tins Daily: 0.5 - Caffeine Use Caffeine Use: Reports: Coffee, Energy Drinks, Soda - Alcohol Use Days Per Week of Alcohol Use: 2 Number of Drinks Per Day: 2 Total Drinks Per Week: 4 - Recreational Drug Use Recreational Drug Use: Yes Recreational Drug Type: Reports: Marijuana/Hashish - Living Situation & Occupation Living situation: Reports: , with Spouse, with Family (2 kids) 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 ED EXAM, BEHAVIORAL HEALTH - Physical Exam Exam: See Below Exam Limited By: No Limitations General Appearance: Alert, WD/WN, No Apparent Distress Respiratory/Chest: No Respiratory Distress, Lungs Clear, Normal Breath Sounds, No Accessory Muscle Use, Chest Non-Tender Cardiovascular: Normal Peripheral Pulses, Regular Rate, Rhythm, No Edema GI/Abdominal: Normal Bowel Sounds, Soft, Non-Tender, No Distention, No Mass Neurological: Alert, Normal Mood/Affect, Normal Cognition, No Motor/Sensory Deficits Psychiatric: Alert, Normal Cognition, Oriented, Depressed Mood, Flat Affect, Tearful. No: Homicidal Thoughts, Suicidal Plan, Suicidal Thoughts, Auditory Hallucinations, Visual Hallucinations Skin Exam: Warm, Dry, Intact, Normal color, No rash COURSE, BEHAVIORAL HEALTH COMP - Course Vital Signs: Last Vital Signs Temp 98.5 F 11/17/20 14:43 Pulse 56 L 11/17/20 16:16 Resp 16 11/17/20 16:16 BP 83/73 L 11/17/20 16:16 Pulse Ox 97 11/17/20 16:16 Orders, Labs, Meds: Laboratory Tests 11/17/20 Range/Units 13:39 Acetaminophen 0 L (10-30) ug/mL Discharge vs Psych Eval/Treatment:: 11/17/20 13:24 Patient presents to the ER for the evaluation of her taking too many clonidine tablets, and a mental health evaluation. Upon speaking with the patient, I do believe that she is not suicidal at this time, she does have quite a bit of stress in her life, and wanted to sleep for a long time. I did call poison control and talked with Rose, and she does recommend watching the patient least 4 to 6 hours after ingestion, which was at around 11 AM. Patient can be bradycardic, and become hypotensive, so she cautions us to watch those of vital signs, and obtain an acetaminophen level for management. States that we can give atropine if she gets bradycardic. At this time patient is resting in the room, calmly we will keep her till roughly 3 or 4 PM, and then hopefully discharge her home with no ongoing issues. 11/17/20 14:23 Have been monitoring the patient's vital signs, and there have been no acute drops in her blood pressure or pulse. Tylenol level was negative for today's purposes. 11/17/20 15:25 The patient has been continue to be monitored and her blood pressure while she is sleeping is down to 83/69, and her pulse has stayed above 50 bpm for the most part. She again is sleeping, so we will just continue to monitor her for a few more hours. 11/17/20 17:02 Patient's blood pressure is now 93/66, and heart rate is 102. Discharge has been written, when the patient awakens enough and wants to leave, this to be fine with me. She has again been questioned on if she had any sort of suicidal intent, and she denies any of this. Departure - Departure Time of Disposition: 16:34 Disposition: Home, Self-Care 01 Condition: Good Clinical Impression: Accidental drug ingestion Qualifiers: Encounter type: initial encounter Qualified Code(s): T50.901A - Poisoning by unspecified drugs, medicaments and biological substances, accidental (unintentional), initial encounter - Discharge Information *PRESCRIPTION DRUG MONITORING PROGRAM REVIEWED*: No *COPY OF PRESCRIPTION DRUG MONITORING REPORT IN PATIENT MATILDA: No Referrals: PCP,None [Primary Care Provider] - Forms: ED Department Discharge Additional Instructions: You were evaluated in ER today for taking too many clonidine pills. You were monitored in the ER for some time for derangements in your blood pre ssure and heart rate. Your blood pressure is a little low but your heart rate stayed within normal limits for today's purposes. Please take your previously prescribed medications only as prescribed. Please continue all other counseling sessions with your counselor, if you should need any emergency crisis help, [facility] emergency crisis number is [phone]. Otherwise you may return to the ER at any time if your symptoms should change or worsen. Sepsis Event Note (ED) - Focused Exam Vital Signs: Vital Signs Temp Pulse Resp BP Pulse Ox 11/17/20 16:16 56 L 16 83/73 L 97 11/17/20 14:43 98.5 F 58 L 18 92/67 100 11/17/20 12:58 98.7 F 53 L 20 98/64 99
[2020-11-17 17:50] VITALS: BP 102/85; PULSE 88
== END 2020-11-17 17:50 | disposition home or self-care (01) ==
LOC: JD.ED 12:14
DX: T46.5X1A Poisoning by other antihypertensive drugs, accidental (unintentional), initial encounter (principal); E03.9 Hypothyroidism, unspecified; Z79.899 Other long term (current) drug therapy; Z88.4 Allergy status to anesthetic agent; Z88.2 Allergy status to sulfonamides; Z72.0 Tobacco use
CPT/HCPCS: 36415; 80143; 99284

== ENCOUNTER 2021-08-20 11:57 | Emergency (ER) | payer BC ==
[2021-08-20] MEDS ORDERED: Naloxone 2 MG/2 ML Syringe IVPUSH ONE (12:05)
[2021-08-20] MEDS ORDERED: Ondansetron 4 MG/2 ML SDV IVPUSH ONE (12:05)
[2021-08-20] MEDS ORDERED: Naloxone 2 MG/2 ML Syringe ONE (12:09)
[2021-08-20] MEDS ORDERED: Dextrose 5%-0.9% NaCl 1,000 ML IV SCH (12:15)
[2021-08-20 12:24] VITALS: BP 117/80; PULSE 95
[2021-08-20] MEDS ORDERED: Flumazenil 0.1 MG/ML 5 ML MDV IVPUSH ONE (12:29)
[2021-08-20 13:00] LABS: ACETAMINOPHEN 0 ug/mL (10-30)
== END 2021-08-20 15:22 | disposition home or self-care (01) ==
LOC: JD.ED 11:57
DX: T40.2X1A Poisoning by other opioids, accidental (unintentional), initial encounter (principal); E05.90 Thyrotoxicosis, unspecified without thyrotoxic crisis or storm; E03.9 Hypothyroidism, unspecified; Z79.899 Other long term (current) drug therapy; Z88.2 Allergy status to sulfonamides; Z88.8 Allergy status to other drugs, medicaments and biological substances
CPT/HCPCS: 36415; 71045; 80053; 80143; 80179; 80306; 80307; 83690; 84443; 84703; 85025; 93005; 96361; 96374; 96375; 99285; J2310; J2405; J3490; J7042

== ENCOUNTER 2021-11-27 01:58 | Emergency (ER) | payer BC, MEDICAID ==
[2021-11-27 02:18] VITALS: BP 124/95; PULSE 82
== END 2021-11-27 03:02 | disposition home or self-care (01) ==
LOC: JD.ED 01:58
DX: F32.A Depression, unspecified (principal); F41.9 Anxiety disorder, unspecified; E03.9 Hypothyroidism, unspecified; F17.210 Nicotine dependence, cigarettes, uncomplicated; Z88.5 Allergy status to narcotic agent; Z88.2 Allergy status to sulfonamides; Z79.899 Other long term (current) drug therapy
CPT/HCPCS: 99283

== ENCOUNTER 2021-12-22 17:04 | Emergency (ER) | payer BC, MEDICAID ==
[2021-12-22 17:36] VITALS: BP 118/89; PULSE 76
[2021-12-22] MEDS ORDERED: Sodium Chloride 0.9% 10 ML Syringe FLUSH PRN (18:24)
[2021-12-22] MEDS ORDERED: Ketorolac 30 MG/ML SDV IVPUSH ONE (18:25)
[2021-12-22] MEDS ORDERED: Sodium Chloride 0.9% 1,000 ML IV ONE (18:25)
[2021-12-22] MEDS ORDERED: diphenhydrAMINE 50 MG/ML SDV IVPUSH ONE (18:25)
[2021-12-22] MEDS ORDERED: Metoclopramide 10 MG/2 ML SDV IVPUSH ONE (18:25)
[2021-12-22] MEDS ORDERED: Amoxicillin 500 MG Cap PO ONE (18:27)
[2021-12-22 18:38] LABS: CORONAVIRUS COVID-19 NAA NEGATIVE (NEGATIVE)
[2021-12-22 19:23] LABS: ESTIMATED GFR 55 mL/min (>60)
[2021-12-22] MEDS ORDERED: Levothyroxine 125 MCG Tab PO STA (19:43)
[2021-12-22] MEDS ORDERED: Levothyroxine 25 MCG Tab PO ONE (19:44)
== END 2021-12-22 20:23 | disposition home or self-care (01) ==
LOC: JD.ED 17:04
DX: G43.909 Migraine, unspecified, not intractable, without status migrainosus (principal); E03.9 Hypothyroidism, unspecified; Z88.8 Allergy status to other drugs, medicaments and biological substances; Z88.2 Allergy status to sulfonamides; Z79.899 Other long term (current) drug therapy; Z72.0 Tobacco use; Z20.822 Contact with and (suspected) exposure to COVID-19
CPT/HCPCS: 0241U; 36415; 80053; 83735; 84443; 85025; 86140; 96361; 96374; 96375; 99284; A9270; J1200; J1885; J2765; J3490; J7030; 99283

== ENCOUNTER 2022-01-28 20:03 | Emergency (ER) | payer BC, MEDICAID ==
[2022-01-28] MEDS ORDERED: Acetaminophen 325 MG Tab PO ONE (23:03)
[2022-01-29 01:12] LABS: ESTIMATED GFR 61 mL/min (>60)
[2022-01-29 01:14] LABS: ACETAMINOPHEN 0 ug/mL (10-30)
[2022-01-29 06:45] VITALS: BP 116/76; PULSE 76
== END 2022-01-29 08:55 | disposition home or self-care (01) ==
LOC: JD.ED 20:03
DX: R45.851 Suicidal ideations (principal); E03.9 Hypothyroidism, unspecified; Z20.822 Contact with and (suspected) exposure to COVID-19; Z88.8 Allergy status to other drugs, medicaments and biological substances; Z88.2 Allergy status to sulfonamides; Z79.899 Other long term (current) drug therapy; Z86.16 Personal history of COVID-19
CPT/HCPCS: 36415; 80053; 80143; 80179; 80306; 80307; 81025; 84443; 85025; 93005; 99285; U0002

== ENCOUNTER 2024-01-24 15:23 | Emergency (ER) | payer SELFPAY ==
[2024-01-24 16:19] LABS: BASOPHILS PERCENT AUTO 1.1 % (0.0-1.0); EOSINOPHILS ABSOLUTE AUTO 0.1 K/mm3 (0.0-0.4); EOSINOPHILS PERCENT AUTO 3.2 % (0.0-6.0); HEMATOCRIT 27.7 % (37.0-47.0); HEMOGLOBIN 8.5 gm/dl (12.0-16.0); IMMATURE GRAN ABSOLUTE AUTO 0.02 K/mm3 (0.00-0.05); IMMATURE GRAN PERCENT AUTO 0.5 % (0.0-0.4); LYMPHOCYTES ABSOLUTE AUTO 1.6 K/mm3 (1.0-4.8); LYMPHOCYTES PERCENT AUTO 41.2 % (24.0-44.0); MEAN CORPUSCULAR HEMOGLOBIN 28.1 pg (28.0-32.0); MEAN CORPUSCULAR HGB CONC 30.7 g/dl (32.0-36.0); MEAN CORPUSCULAR VOLUME 91.4 fl (83.0-99.0); MEAN PLATELET VOLUME 9.1 fl (9.4-12.3); MONOCYTES ABSOLUTE AUTO 0.3 K/mm3 (0.0-0.8); MONOCYTES PERCENT AUTO 8.2 % (0.0-8.0); NEUTROPHILS ABSOLUTE AUTO 1.7 K/mm3 (1.8-7.7); NEUTROPHILS PERCENT AUTO 45.8 % (41.0-71.0); PLATELET COUNT,PLT 213 K/mm3 (150-400); RED BLOOD CELL COUNT 3.03 M/mm3 (4.10-5.30); WHITE BLOOD CELL COUNT,WBC 3.76 K/mm3 (3.9-11.3)
[2024-01-24] MEDS: LORazepam 2 MG/ML SDV IVPUSH ONE (16:30)
[2024-01-24] MEDS: Dextrose 5%-0.9% NaCl 1,000 ML IV SCH (16:30)
[2024-01-24 16:49] LABS: A/G RATIO 0.9 (1-2); ALANINE AMINOTRANSFERASE,ALT 111 U/L (14-59); ALBUMIN 3.7 g/dl (3.4-5.0); ALKALINE PHOSPHATASE 76 U/L (46-116); ANION GAP 10.6 (5-15); ASPARTATE AMNIOTRANSFERASE,AST 118 U/L (15-37); BILIRUBIN TOTAL 0.3 mg/dL (0.2-1.0); BLOOD UREA NITROGEN,BUN 14 mg/dL (7-18); BUN/CREATININE RATIO 8.8 (14-18); CALCIUM 8.3 mg/dL (8.5-10.1); CARBON DIOXIDE,CO2 30 mEq/L (21-32); CHLORIDE,CL 101 mEq/L (98-107); CREATININE 1.6 mg/dL (0.55-1.02); EST CRCL DRUG DOSING (CG) 47.27 mL/min; ESTIMATED GFR 43 mL/min (>60); GLUCOSE RANDOM 80 mg/dL (70-99); POTASSIUM,K 3.6 mEq/L (3.5-5.1); PROTEIN TOTAL,TP 7.7 g/dl (6.4-8.2); SODIUM,NA 138 mEq/L (136-145); T4 FREE 0.13 ng/dL (0.76-1.46)
[2024-01-24 16:55] LABS: C-REACTIVE PROTEIN < 0.05 mg/dL (<0.30)
[2024-01-24 18:28] LABS: TSH 240.674 uIU/mL (0.358-3.74)
[2024-01-24 18:46] LABS: APPEARANCE,URINE CLEAR (Clear); BILIRUBIN,URINE NEGATIVE (Negative); COLOR,URINE YELLOW (Yellow); GLUCOSE,URINE NEGATIVE (Negative); KETONES,URINE TRACE (Negative); LEUKOCYTE ESTERASE,URINE NEGATIVE (Negative); NITRITE,URINE NEGATIVE (Negative); OCCULT BLOOD,URINE TRACE-INTACT (Negative); PH,URINE 5.5 (5.0-8.0); PROTEIN,URINE 1+ (Negative); UROBILINOGEN,URINE 0.2 (0.2-1.0)
[2024-01-24 19:23] LABS: BACTERIA,URINE FEW /hpf (FEW); EPITHELIAL CELLS,URINE 40-50 /hpf (0-5); RBC,URINE NOT SEEN /hpf (0-5); WBC,URINE 0-5 /hpf (0-5)
[2024-01-24 19:24] LABS: MUCUS,URINE NOT SEEN /hpf (FEW)
[2024-01-24] MEDS: Levothyroxine 100 MCG Tab PO ONE (21:41)
[2024-01-25 00:04] VITALS: BP 108/84; PULSE 56
== END 2024-01-24 23:16 | disposition home or self-care (01) ==
LOC: JD.ED 15:23
DX: E03.9 Hypothyroidism, unspecified (principal); Z79.899 Other long term (current) drug therapy; Z88.2 Allergy status to sulfonamides; Z88.8 Allergy status to other drugs, medicaments and biological substances
CPT/HCPCS: 36415; 70450; 80053; 81001; 82947; 83605; 83735; 83880; 84439; 84443; 85025; 86140; 93005; 96361; 96374; 99285; A9270; J2060; J7042; 93010; 99284

== ENCOUNTER 2025-01-28 12:05 | Inpatient (IN) | payer SELFPAY ==
[2025-01-28] MEDS ORDERED: Sodium Chloride 0.9% 10 ML Syringe FLUSH PRN (12:36)
[2025-01-28 12:45] LABS: BASOPHILS ABSOLUTE AUTO 0.1 K/mm3 (0.0-0.2); BASOPHILS PERCENT AUTO 1.5 % (0.0-1.0); EOSINOPHILS ABSOLUTE AUTO 0.1 K/mm3 (0.0-0.4); EOSINOPHILS PERCENT AUTO 4.2 % (0.0-6.0); IMMATURE GRAN ABSOLUTE AUTO 0.01 K/mm3 (0.00-0.05); IMMATURE GRAN PERCENT AUTO 0.3 % (0.0-0.4); LYMPHOCYTES ABSOLUTE AUTO 1.4 K/mm3 (1.0-4.8); LYMPHOCYTES PERCENT AUTO 43.1 % (24.0-44.0); MEAN PLATELET VOLUME 8.8 fl (9.4-12.3); MONOCYTES ABSOLUTE AUTO 0.3 K/mm3 (0.0-0.8); MONOCYTES PERCENT AUTO 7.8 % (0.0-8.0); NEUTROPHILS ABSOLUTE AUTO 1.4 K/mm3 (1.8-7.7); NEUTROPHILS PERCENT AUTO 43.1 % (41.0-71.0); NRBC ABSOLUTE 0.00 (0.00-0.02); NRBC PERCENT 0.0 % (0.0-0.2); PLATELET COUNT,PLT 261 K/mm3 (150-400); RED BLOOD CELL COUNT 3.37 M/mm3 (4.10-5.30); WHITE BLOOD CELL COUNT,WBC 3.34 K/mm3 (3.9-11.3)
[2025-01-28] MEDS ORDERED: Naloxone 0.4 MG/ML SDV IVPUSH PRN (12:56)
[2025-01-28 13:19] LABS: A/G RATIO 0.9 (1-2); ALANINE AMINOTRANSFERASE,ALT 82 U/L (14-59); ASPARTATE AMNIOTRANSFERASE,AST 78 U/L (15-37); BILIRUBIN TOTAL 0.3 mg/dL (0.2-1.0); BLOOD UREA NITROGEN,BUN 18 mg/dL (7-18); CARBON DIOXIDE,CO2 27 mEq/L (21-32); CREATININE 1.7 mg/dL (0.55-1.02); EST CRCL DRUG DOSING (CG) 44.06 mL/min; ESTIMATED GFR 39 mL/min (>60); GLUCOSE RANDOM 71 mg/dL (70-99); PROTEIN TOTAL,TP 8.6 g/dl (6.4-8.2)
[2025-01-28 13:33] LABS: CHLORIDE,CL 101 mEq/L (98-107); POTASSIUM,K 3.6 mEq/L (3.5-5.1); SODIUM,NA 140 mEq/L (136-145)
[2025-01-28 14:43] LABS: IRON,FE 21 ug/dL (50-170); PERCENT FE SATURATION 4 % (20-55)
[2025-01-28] MEDS: Sodium Chloride 0.9% 10 ML Syringe FLUSH ONE (15:58)
[2025-01-28] MEDS: Iopamidol 612 MG/ML 100 ML Bottle IVPUSH ONE (15:58)
[2025-01-28] MEDS: Ketorolac 30 MG/ML SDV IVPUSH ONE (16:40)
[2025-01-28] MEDS ORDERED: propofoL 500 MG/50 ML 50 ML ONE (17:05)
[2025-01-28] MEDS ORDERED: Lactated Ringers 1,000 ML ONE (18:26)
[2025-01-28] MEDS ORDERED: Pharmacy Consult Order SCH (18:30)
[2025-01-29] MEDS: Ketorolac 30 MG/ML SDV IV PRN (00:38)
[2025-01-29 04:56] LABS: APPEARANCE,URINE SLT CLOUDY (Clear); GLUCOSE,URINE NEGATIVE (Negative); OCCULT BLOOD,URINE NEGATIVE (Negative)
[2025-01-29 05:11] LABS: SQUAMOUS EPITHELIAL CELLS,UR 0-5 /hpf (0-5)
[2025-01-29 05:29] LABS: BASOPHILS ABSOLUTE AUTO 0.0 K/mm3 (0.0-0.2); BASOPHILS PERCENT AUTO 1.2 % (0.0-1.0); EOSINOPHILS ABSOLUTE AUTO 0.2 K/mm3 (0.0-0.4); EOSINOPHILS PERCENT AUTO 6.2 % (0.0-6.0); IMMATURE GRAN ABSOLUTE AUTO 0.01 K/mm3 (0.00-0.05); IMMATURE GRAN PERCENT AUTO 0.3 % (0.0-0.4); LYMPHOCYTES ABSOLUTE AUTO 1.2 K/mm3 (1.0-4.8); LYMPHOCYTES PERCENT AUTO 36.7 % (24.0-44.0); MEAN PLATELET VOLUME 8.8 fl (9.4-12.3); MONOCYTES ABSOLUTE AUTO 0.3 K/mm3 (0.0-0.8); MONOCYTES PERCENT AUTO 9.6 % (0.0-8.0); NEUTROPHILS ABSOLUTE AUTO 1.5 K/mm3 (1.8-7.7); NEUTROPHILS PERCENT AUTO 46.0 % (41.0-71.0); NRBC ABSOLUTE 0.00 (0.00-0.02); NRBC PERCENT 0.0 % (0.0-0.2); PLATELET COUNT,PLT 205 K/mm3 (150-400); RED BLOOD CELL COUNT 3.21 M/mm3 (4.10-5.30); WHITE BLOOD CELL COUNT,WBC 3.24 K/mm3 (3.9-11.3)
[2025-01-29 05:45] LABS: A/G RATIO 0.8 (1-2); ALANINE AMINOTRANSFERASE,ALT 61.0 U/L (14-59); ASPARTATE AMNIOTRANSFERASE,AST 56.0 U/L (15-37); BILIRUBIN TOTAL 0.3 mg/dL (0.2-1.0); BLOOD UREA NITROGEN,BUN 14.0 mg/dL (7-18); CARBON DIOXIDE,CO2 29.0 mEq/L (21-32); CHLORIDE,CL 101.0 mEq/L (98-107); CREATININE 1.4 mg/dL (0.55-1.02); EST CRCL DRUG DOSING (CG) 53.5 mL/min; ESTIMATED GFR 50.0 mL/min (>60); GLUCOSE RANDOM 78.0 mg/dL (70-99); POTASSIUM,K 3.7 mEq/L (3.5-5.1); PROTEIN TOTAL,TP 7.1 g/dl (6.4-8.2); SODIUM,NA 136.0 mEq/L (136-145)
[2025-01-29 12:51] LABS: BUPRENORPHINE SCREEN,URINE NEGATIVE (CUTOFF=10); METHADONE SCREEN, URINE NEGATIVE (CUTOFF=200); METHAMPHETAMINES SCREEN, URINE PRESUMPTIVE POSITIVE (CUTOFF=500); OXYCODONE SCREEN,URINE NEGATIVE (CUT0FF=100); THC SCREEN,URINE 20 NG/ML NEGATIVE (CUTOFF=50)
[2025-01-29 12:58] LABS: AMPHETAMINES SCREEN, URINE PRESUMPTIVE POSITIVE (CUTOFF=500)
[2025-01-29] MEDS: Polyethylene Glycol/Electrolytes 4,000 ML Bottle PO ONE (16:30)
[2025-01-30 05:52] LABS: A/G RATIO 0.8 (1-2); ALANINE AMINOTRANSFERASE,ALT 50.0 U/L (14-59); ASPARTATE AMNIOTRANSFERASE,AST 45.0 U/L (15-37); BILIRUBIN TOTAL 0.3 mg/dL (0.2-1.0); BLOOD UREA NITROGEN,BUN 8.0 mg/dL (7-18); CARBON DIOXIDE,CO2 27.0 mEq/L (21-32); CHLORIDE,CL 106.0 mEq/L (98-107); CREATININE 1.4 mg/dL (0.55-1.02); EST CRCL DRUG DOSING (CG) 53.5 mL/min; ESTIMATED GFR 50.0 mL/min (>60); GLUCOSE RANDOM 81.0 mg/dL (70-99); POTASSIUM,K 3.8 mEq/L (3.5-5.1); PROTEIN TOTAL,TP 6.6 g/dl (6.4-8.2); SODIUM,NA 140.0 mEq/L (136-145)
[2025-01-30 05:54] LABS: BASOPHILS ABSOLUTE AUTO 0.0 K/mm3 (0.0-0.2); BASOPHILS PERCENT AUTO 0.9 % (0.0-1.0); EOSINOPHILS ABSOLUTE AUTO 0.2 K/mm3 (0.0-0.4); EOSINOPHILS PERCENT AUTO 4.8 % (0.0-6.0); IMMATURE GRAN ABSOLUTE AUTO 0.01 K/mm3 (0.00-0.05); IMMATURE GRAN PERCENT AUTO 0.3 % (0.0-0.4); LYMPHOCYTES ABSOLUTE AUTO 0.8 K/mm3 (1.0-4.8); LYMPHOCYTES PERCENT AUTO 24.2 % (24.0-44.0); MEAN PLATELET VOLUME 8.9 fl (9.4-12.3); MONOCYTES ABSOLUTE AUTO 0.2 K/mm3 (0.0-0.8); MONOCYTES PERCENT AUTO 6.9 % (0.0-8.0); NEUTROPHILS ABSOLUTE AUTO 2.1 K/mm3 (1.8-7.7); NEUTROPHILS PERCENT AUTO 62.9 % (41.0-71.0); NRBC ABSOLUTE 0.00 (0.00-0.02); NRBC PERCENT 0.0 % (0.0-0.2); PLATELET COUNT,PLT 179 K/mm3 (150-400); RED BLOOD CELL COUNT 4.14 M/mm3 (4.10-5.30); WHITE BLOOD CELL COUNT,WBC 3.31 K/mm3 (3.9-11.3)
[2025-01-30] MEDS ORDERED: Sodium Chloride 0.9% 10 ML Syringe FLUSH PRN (07:45)
[2025-01-30] MEDS ORDERED: Lactated Ringers 1,000 ML IV SCH (07:45)
[2025-01-30] MEDS ORDERED: Morphine PF 10 MG/10 ML SDV ONE (08:01)
[2025-01-30] MEDS ORDERED: propofoL 1,000 MG/100 ML 100 ML ONE (08:03)
[2025-01-30] MEDS: Sodium Chloride 0.9% 10 ML Syringe FLUSH SCH (09:10)
[2025-01-30] MEDS ORDERED: Ketamine HCL/NACL, ISO-OSM 50 MG/5 ML Syringe ONE (10:45)
[2025-01-30] MEDS ORDERED: fentaNYL 100 MCG/2 ML SDV ONE (10:45)
[2025-01-30] MEDS ORDERED: Midazolam 1 MG/ML 2 ML SDV ONE (10:45)
[2025-01-30] MEDS ORDERED: Dexamethasone 4 MG/ML 5 ML MDV ONE (10:45)
[2025-01-30] MEDS: Ondansetron 4 MG/2 ML SDV IV PRN (11:14)
[2025-01-30] MEDS ORDERED: propofoL 500 MG/50 ML 50 ML ONE (14:44)
[2025-01-30] MEDS: EPINEPHrine 1 MG/ML SDV ONE (15:12)
[2025-01-30] MEDS ORDERED: Lactated Ringers 1,000 ML ONE (15:30)
[2025-01-30] MEDS ORDERED: Ondansetron 4 MG/2 ML SDV IVPUSH PRN ×2 (15:53)
[2025-01-30] MEDS: diphenhydrAMINE 50 MG/ML SDV IVPUSH PRN (19:19)
[2025-01-31 04:43] LABS: BASOPHILS ABSOLUTE AUTO 0.0 K/mm3 (0.0-0.2); BASOPHILS PERCENT AUTO 0.2 % (0.0-1.0); EOSINOPHILS ABSOLUTE AUTO 0.0 K/mm3 (0.0-0.4); EOSINOPHILS PERCENT AUTO 0.1 % (0.0-6.0); IMMATURE GRAN ABSOLUTE AUTO 0.04 K/mm3 (0.00-0.05); IMMATURE GRAN PERCENT AUTO 0.4 % (0.0-0.4); LYMPHOCYTES ABSOLUTE AUTO 0.7 K/mm3 (1.0-4.8); LYMPHOCYTES PERCENT AUTO 7.7 % (24.0-44.0); MEAN PLATELET VOLUME 8.6 fl (9.4-12.3); MONOCYTES ABSOLUTE AUTO 0.4 K/mm3 (0.0-0.8); MONOCYTES PERCENT AUTO 4.9 % (0.0-8.0); NEUTROPHILS ABSOLUTE AUTO 7.8 K/mm3 (1.8-7.7); NEUTROPHILS PERCENT AUTO 86.7 % (41.0-71.0); NRBC ABSOLUTE 0.00 (0.00-0.02); NRBC PERCENT 0.0 % (0.0-0.2); PLATELET COUNT,PLT 143 K/mm3 (150-400); RED BLOOD CELL COUNT 3.80 M/mm3 (4.10-5.30); WHITE BLOOD CELL COUNT,WBC 9.05 K/mm3 (3.9-11.3)
[2025-01-31 05:20] LABS: A/G RATIO 0.7 (1-2); ALANINE AMINOTRANSFERASE,ALT 47.0 U/L (14-59); ASPARTATE AMNIOTRANSFERASE,AST 41.0 U/L (15-37); BILIRUBIN TOTAL 0.3 mg/dL (0.2-1.0); BLOOD UREA NITROGEN,BUN 5.0 mg/dL (7-18); CARBON DIOXIDE,CO2 26.0 mEq/L (21-32); CHLORIDE,CL 108.0 mEq/L (98-107); CREATININE 1.2 mg/dL (0.55-1.02); EST CRCL DRUG DOSING (CG) 62.42 mL/min; ESTIMATED GFR 60.0 mL/min (>60); GLUCOSE RANDOM 99.0 mg/dL (70-99); POTASSIUM,K 3.7 mEq/L (3.5-5.1); PROTEIN TOTAL,TP 6.3 g/dl (6.4-8.2); SODIUM,NA 142.0 mEq/L (136-145)
[2025-01-31] MEDS ORDERED: cefTRIAXone 1 GM in Water For Injection, Sterile 10 ML IVPUSH SCH (18:00)
[2025-01-31] MEDS: cefTRIAXone 1 GM in Water For Injection, Sterile 10 ML IVPUSH SCH (20:05)
[2025-02-01 04:52] LABS: BASOPHILS ABSOLUTE AUTO 0.0 K/mm3 (0.0-0.2); BASOPHILS PERCENT AUTO 0.5 % (0.0-1.0); EOSINOPHILS ABSOLUTE AUTO 0.2 K/mm3 (0.0-0.4); EOSINOPHILS PERCENT AUTO 2.9 % (0.0-6.0); IMMATURE GRAN ABSOLUTE AUTO 0.02 K/mm3 (0.00-0.05); IMMATURE GRAN PERCENT AUTO 0.3 % (0.0-0.4); LYMPHOCYTES ABSOLUTE AUTO 1.0 K/mm3 (1.0-4.8); LYMPHOCYTES PERCENT AUTO 17.3 % (24.0-44.0); MEAN PLATELET VOLUME 8.9 fl (9.4-12.3); MONOCYTES ABSOLUTE AUTO 0.4 K/mm3 (0.0-0.8); MONOCYTES PERCENT AUTO 6.4 % (0.0-8.0); NEUTROPHILS ABSOLUTE AUTO 4.3 K/mm3 (1.8-7.7); NEUTROPHILS PERCENT AUTO 72.6 % (41.0-71.0); NRBC ABSOLUTE 0.00 (0.00-0.02); NRBC PERCENT 0.0 % (0.0-0.2); PLATELET COUNT,PLT 165 K/mm3 (150-400); RED BLOOD CELL COUNT 3.87 M/mm3 (4.10-5.30); WHITE BLOOD CELL COUNT,WBC 5.94 K/mm3 (3.9-11.3)
[2025-02-01 05:25] LABS: A/G RATIO 0.7 (1-2); ALANINE AMINOTRANSFERASE,ALT 38.0 U/L (14-59); ASPARTATE AMNIOTRANSFERASE,AST 36.0 U/L (15-37); BILIRUBIN TOTAL 0.2 mg/dL (0.2-1.0); BLOOD UREA NITROGEN,BUN 7.0 mg/dL (7-18); CARBON DIOXIDE,CO2 27.0 mEq/L (21-32); CHLORIDE,CL 110.0 mEq/L (98-107); CREATININE 1.3 mg/dL (0.55-1.02); EST CRCL DRUG DOSING (CG) 57.62 mL/min; ESTIMATED GFR 54.0 mL/min (>60); GLUCOSE RANDOM 86.0 mg/dL (70-99); POTASSIUM,K 3.7 mEq/L (3.5-5.1); PROTEIN TOTAL,TP 5.9 g/dl (6.4-8.2); SODIUM,NA 142.0 mEq/L (136-145)
[2025-02-01 11:15] VITALS: BP 135/70; PULSE 74
== END 2025-02-01 11:02 | disposition home or self-care (01) | DRG 329 ==
LOC: JD.ED 12:05 → JD.SDS 17:25 → JD.ICU 18:46
PROVIDERS: ADMIT Family Medicine; ATTEND Family Medicine
PROC: 30233N1 Transfusion of Nonautologous Red Blood Cells into Peripheral Vein, Percutaneous Approach (ICD-10-PCS; 2025-01-28)
PROC: 3E03329 Introduction of Other Anti-infective into Peripheral Vein, Percutaneous Approach (ICD-10-PCS; 2025-01-28)
PROC: 3E0333Z Introduction of Anti-inflammatory into Peripheral Vein, Percutaneous Approach (ICD-10-PCS; 2025-01-28)
PROC: 3E033XZ Introduction of Vasopressor into Peripheral Vein, Percutaneous Approach (ICD-10-PCS; 2025-01-28)
PROC: 0DJD8ZZ Inspection of Lower Intestinal Tract, Via Natural or Artificial Opening Endoscopic (ICD-10-PCS; 2025-01-28)
PROC: 0D9P80Z Drainage of Rectum with Drainage Device, Via Natural or Artificial Opening Endoscopic (ICD-10-PCS; 2025-01-28)
PROC: 0DBN0ZZ Excision of Sigmoid Colon, Open Approach (ICD-10-PCS; principal; 2025-01-28 17:38)
DX: K56.2 Volvulus (principal); E03.5 Myxedema coma; N17.9 Acute kidney failure, unspecified; E03.9 Hypothyroidism, unspecified; D50.9 Iron deficiency anemia, unspecified; R33.9 Retention of urine, unspecified; F32.A Depression, unspecified; F41.9 Anxiety disorder, unspecified; R00.1 Bradycardia, unspecified; Z79.01 Long term (current) use of anticoagulants; Z79.1 Long term (current) use of non-steroidal anti-inflammatories (NSAID); Z79.890 Hormone replacement therapy; Z79.891 Long term (current) use of opiate analgesic; Z79.899 Other long term (current) drug therapy; Z88.1 Allergy status to other antibiotic agents; Z91.09 Other allergy status, other than to drugs and biological substances; Z98.890 Other specified postprocedural states; Z98.51 Tubal ligation status; Z90.721 Acquired absence of ovaries, unilateral
CPT/HCPCS: 00840; 36415; 36430; 51702; 74177; 74177-26; 80053; 80306; 81001; 81025; 82533; 82947; 83540; 83735; 84439; 84443; 84466; 84484; 84703; 85025; 86140; 86850; 86900; 86901; 86922; 87086; 87088; 87186; 94640; 96374; 96375; 99284; 99285-25; A9270-GY; J0169; J0650; J0665; J0694; J0696; J1100; J1171; J1200; J1650; J1885; J2003; J2250; J2274; J2405; J2704; J3010; J3490; J7030; J7120; P9016; Q9967